=== PATIENT | male | born 1965 | race Caucasian/White ===

== ENCOUNTER 2019-09-15 16:23 | Outpatient (CLI) | payer MEDICARE, SELFPAY ==
[2019-09-15 17:10] LABS: Blood Urea Nitrogen 16 mg/dL (9-20); Calcium 9.7 mg/dL (8.4-10.2); Carbon Dioxide 30 mmol/L (22-30); Chloride 98 mmol/L (98-107); Estimated Glomerular Filt Rate > 60; Glucose 100 mg/dL (75-110); Potassium 4.5 mmol/L (3.4-5.0); Sodium 138 mmol/L (137-145)
== END 2019-09-15 16:24 | disposition home or self-care (01) ==
LOC: ANHLAB 16:26
PROVIDERS: PCP Family Medicine; Visit Provider Nurse Practitioner Family
DX: E87.5 Hyperkalemia (principal)
CPT/HCPCS: 36415; 80048

== ENCOUNTER 2020-05-02 13:09 | Outpatient (CLI) | payer MEDICARE, SELFPAY ==
--- NOTE | ~2020-05-02 | XR_ITS ---
EXAMINATION: XR knee LT 3V EXAM DATE: 05/02/2020 13:42 INDICATION: No known recent injury provided at this time. Pain of the knees. TECHNIQUE: Three projections of the left knee. Comparison is made to prior examination from 04/21/2017 . FINDINGS: No evidence osteochondral defect or joint body in the left knee joint. There is minimal p rimary osteoarthritis. No joint effusion. There are no acute fractures or dislocations identified. There is no subcutaneous gas. The soft tissue is unremarkable. There are no radiopaque foreign bod ies. IMPRESSION: Minimal left knee osteoarthritis. Reviewed, dictated and finalized at location B.
--- NOTE | ~2020-05-02 | XR_ITS ---
EXAMINATION: XR knee RT 3V EXAM DATE: 05/02/2020 13:41 INDICATION: No known recent injury provided at this time. Pain of the knees. TECHNIQUE: Three projections of the right knee. There is no prior study for comparison. FINDINGS: No evidence osteochondral defect or joint body in the right knee joint. There is minimal primary osteoarthritis. There are no acute fractures or dislocations identified. There is no subcut aneous gas. The soft tissue is unremarkable. There are no radiopaque foreign bodies. IMPRESSION: Minimal right knee osteoarthritis. Reviewed, dictated and finalized at location B.
== END 2020-05-02 13:10 | disposition home or self-care (01) ==
PROVIDERS: PCP Family Medicine; Visit Provider Nurse Practitioner Family
DX: M25.562 Pain in left knee (principal); M25.561 Pain in right knee
CPT/HCPCS: 73562

== ENCOUNTER 2020-07-11 14:22 | Outpatient (CLI) | payer MEDICARE, SELFPAY ==
--- NOTE | ~2020-07-11 | XR_ITS ---
EXAMINATION: XR chest 2V EXAM DATE: 07/11/2020 14:44 INDICATION: R05 - Cough, HX HTN . TECHNIQUE: Frontal and lateral projections of the chest obtained and reviewed. Comparison is made to prior examination from 09/18/2015. FINDINGS: The lungs are clear. There are no pleural effusions. The cardiomediastinal silhouette is within normal limits. There is no pneumothorax suspected. The bones and soft tissues are unremarkab le. IMPRESSION: No acute cardiopulmonary findings. Reviewed, dictated and finalized at location A. CARRIER
== END 2020-07-11 14:23 | disposition home or self-care (01) ==
PROVIDERS: PCP Family Medicine; Visit Provider Nurse Practitioner Family
DX: R05 Cough (principal); I10 Essential (primary) hypertension
CPT/HCPCS: 71046

== ENCOUNTER 2020-07-16 18:41 | Emergency (ER) | payer MEDICARE, SELFPAY ==
[2020-07-16 19:26] VITALS: BP 143/74; PULSE 81; RESP 15; TEMP 36.9; O2SAT 99
[2020-07-16 19:33] LABS: Glucose Point of Care 418 (65-105)
[2020-07-16 19:42] LABS: Basophils Absolute Auto 0.1 K/mm3 (0.0-0.1); Basophils Percent Auto 0.5 % (0.2-1.2); Eosinophils Absolute Auto 0.3 K/mm3 (0-0.3); Eosinophils Percent Auto 2.8 % (0-4.4); Hemoglobin 13.7 g/dL (14.0-18.0); Immature Granulocyte Absolute 0.03 K/mm3 (0.00-0.031); Immature Granulocyte Percent A 0.3 % (0-0.5); Lymphocytes Absolute Auto 3.26 K/mm3 (0.9-3.2); Lymphocytes Percent Auto 31.6 % (18.3-44.2); Mean Corpuscular HGB Conc 35.1 g/dl (32-36); Mean Corpuscular Volume 85.3 fl (80-100); Mean Platelet Volume 9.8 fl (7.4-10.4); Monocytes Percent Auto 10.1 % (2.6-8.5); Neutrophils Absolute Auto 5.6 K/mm3 (1.3-6.7); Neutrophils Percent Auto 54.7 % (45.5-73.1); Platelet Count Result 220 k/mm3 (150-375); Red Blood Count 4.57 M/mm3 (4.6-6.20); White Blood Count 10.3 K/mm3 (4.5-10.0)
[2020-07-16 19:59] LABS: Add Urine Microscopic? YES; Appearance Urine Clear (Clear); Bilirubin Urine Negative (Negative); Blood Urine Negative (Negative); Color Urine Straw (Yellow); Glucose Urine UA 3+ mg/dL (Negative); Ketones Urine Negative (Negative); Leukocyte Esterase Ur Negative LEU/UL (Negative); Nitrate Urine Negative (Negative); Protein Urine Negative (Negative); RBC Urine 0-2 /hpf (0-2); Specific Grav Ur 1.015 (1.001-1.035); Urobilinogen Urine Negative mg/dL (<2.0); WBC Urine 0-3 /hpf
[2020-07-16 20:23] LABS: Alanine Aminotransferase 41 U/L (4-50); Albumin Level 4.1 g/dL (3.5-5.1); Alkaline Phosphatase 88 U/L (38-126); Anion Gap 8 mmol/L (8-16); Aspartate Amino Transferase 42 U/L (17-59); Bilirubin,Total 0.4 mg/dL (0.2-1.3); Blood Urea Nitrogen 10 mg/dL (9-20); Calcium 8.9 mg/dL (8.4-10.2); Carbon Dioxide 25 mmol/L (22-30); Chloride 98 mmol/L (98-107); Estimated CRCL calculation 122 ml/min; Estimated Glomerular Filt Rate > 60; Glucose 367 mg/dL (75-110); Magnesium 1.9 mg/dL (1.6-2.3); Potassium 4.3 mmol/L (3.4-5.0); Sodium 131 mmol/L (137-145)
[2020-07-16 20:26] LABS: Beta-Hydroxybutyrate/Acetoacetate 0.07 mmol/L (0.02-0.27)
--- NOTE | 2020-07-16 20:57 | ED.RECABL ---
HPI - Recheck/Abnormal Lab/Rx General Chief Complaint: Recheck/Abnormal Lab/Rx Stated Complaint: high blood sugar, sent by PCP Time Seen by Provider: 07/16/20 20:34 Source: patient Mode of arrival: ambulatory Limitations: no limitations History of Present Illness HPI narrative: 55-year-old man Type 2 diabetes first diagnosed about a year ago Takes only 500 mg a day of extended release Metformin Blood sugars were over 400 today and he was advised to be checked in the ER Effectively is asymptomatic, no antecedent symptoms, no fever nausea vomiting etc. does have probably excessive urination Related Data Home Medications Medication Instructions Recorded Confirmed aspirin 81 mg tablet,delayed 81 mg PO DAILY 08/22/19 05/27/20 release cariprazine 3 mg capsule 3 mg PO DAILY 09/11/19 05/27/20 cetirizine 10 mg capsule 10 mg PO DAILY 09/11/19 05/27/20 gabapentin 300 mg capsule 300 mg PO DAILY 09/11/19 05/27/20 duloxetine 60 mg capsule,delayed 60 mg PO DAILY 12/07/19 05/27/20 release lamotrigine 25 mg tablet 25 mg PO BID tablet 12/07/19 05/27/20 docusate sodium 100 mg capsule 100 mg PO DAILY 02/19/20 05/27/20 polyethylene glycol 3350 17 17 gm PO DAILY 02/19/20 05/27/20 gram/dose oral powder Allergies Allergy/AdvReac Type Severity Reaction Status Date / Time No Known Allergies Allergy Unknown N/A Verified 07/16/20 19:31 Review of Systems Review of Systems: All systems reviewed & are unremarkable except as noted in HPI and below Constitutional: Constitutional: Denies chills, Denies fatigue, Denies fever(s), Denies headache(s) and Denies weakness Eyes: Eyes: Reports no additional eye complaints and Denies change in vision ENT: Denies headache(s), Denies epistaxis, Denies nasal congestion and Denies sore throat Cardiovascular: Cardiovascular: Denies chest pain, Denies leg edema, Denies palpitations and Denies dyspnea Respiratory: Respiratory: Denies cough, Denies dyspnea and Denies wheezing Gastrointestinal: Gastrointestinal: Denies abdominal pain, Denies diarrhea, Denies nausea and Denies vomiting Genitourinary: Genitourinary: Denies hematuria, Denies dysuria and Denies urinary frequency Musculoskeletal: Musculoskeletal: Denies deformity, Denies arthralgias, Denies joint swelling, Denies muscle weakness and Denies numbness Integumentary/Breasts: Skin/Breast: Denies rash and Denies wounds Neurologic: Denies headache(s), Denies focal weakness, Denies numbness and Denies weakness Psychiatric: Psychiatric: Reports no additional psychiatric complaints Endocrine: Endocrine: Denies fatigue, Reports polydipsia, Reports polyuria and Denies palpitations Hematologic/Lymphatic: Hematologic/Lymphatic: Denies easy bleeding and Denies easy bruising Allergic/Immunologic: Allergic/Immunologic: Denies wheezing PMFSH Past Medical History Medical History BMI 36.0-36.9,adult Coronary artery disease Hyperlipidemia Seizure Surgical History Surgical History History of colon resection History of foot surgery History of hernia repair History of surgery on wrist Family History Family History Father Hypertension Family history of throat cancer Acute myocardial infarction Family history of malignant neoplasm of kidney History of kidney cancer Mother Family history of Alzheimer's disease Family history of diabetes mellitus in first degree relative Diabetes mellitus Sibling No problems noted. Other Cerebrovascular accident Family history of alcoholism Family history of cardiovascular disease Family history of coronary artery disease Family history of malignant neoplasm Family history of mental disorder Social History Social History Smoking status: Former sm
[2020-07-16 21:00] VITALS: BP 129/63; PULSE 77; RESP 19; O2SAT 98
--- NOTE | 2020-07-16 21:20 | PC.NURSE ---
Normal Saline not given per Dr. Whyte
[2020-07-16 21:21] LABS: Hemoglobin A1C 7.7 % (<5.7)
[2020-07-16 21:47] VITALS: BP 133/70; PULSE 76; RESP 16; O2SAT 96
== END 2020-07-16 21:48 | disposition home or self-care (01) ==
PROVIDERS: Emergency Medicine; Emergency Provider Emergency Medicine; PCP Family Medicine
DX: E11.65 Type 2 diabetes mellitus with hyperglycemia (principal); I25.10 Atherosclerotic heart disease of native coronary artery without angina pectoris; E78.5 Hyperlipidemia, unspecified; Z90.49 Acquired absence of other specified parts of digestive tract; Z87.891 Personal history of nicotine dependence; Z79.84 Long term (current) use of oral hypoglycemic drugs
CPT/HCPCS: 36415; 80053; 81001; 82010; 82948; 83036; 83735; 84100; 85025; 99283

== ENCOUNTER 2020-08-05 22:05 | Emergency (ER) | payer MEDICARE, SELFPAY ==
[2020-08-05] VITALS (7 sets, daily range): BP systolic 113–117; BP diastolic 56–60; PULSE 71–76; RESP 14–25; TEMP 35.9; O2SAT 96–98
--- NOTE | ~2020-08-05 | XR_ITS ---
EXAMINATION: XR chest 1V portable INDICATION: Choking episode, history of hypertension TECHNIQUE: Portable AP chest at 2238 hours COMPARISON: 07/11/2020 FINDINGS: There are interstitial and airspace opacities in the mid and lower lung zones. No pleural e ffusion or pneumothorax is identified. The cardiomediastinal silhouette is normal. Healed left-sided rib fractures are noted. IMPRESSION: 1. Opacities of the mid and lower lung zones which could reflect pneumonia and/or pulmonary edema and /or atelectasis. Reviewed, dictated and finalized at location A. ING COORDINATOR IMPRESSION: 1. Opacities of the mid and lower lung zones which could reflect pneumonia and/ or pulmonary edema and/or atelectasis.
--- NOTE | 2020-08-05 22:17 | ECG_ITS ---
Measurements Intervals [place] Rate: 70 P: 67 IA: 143 QRS: 50 QRSD: 86 T: 39 QT: 374 QTc: 405 Interpretive Statements SINUS RHYTHM POSSIBLE LEFT ATRIAL ENLARGEMENT BORDERLINE T WAVE ABNORMALITY- ANTERIOR LEADS BORDERLINE ECG Electronically Signed On 08-06-2020 7:28:14 MILL REPRESENTATIVE by Deacon King D.O.
--- NOTE | 2020-08-05 22:18 | ED.GENADULT ---
HPI - General Adult General Chief complaint: Syncope Stated complaint: choked and stopped breathing Time Seen by Provider: 08/05/20 22:19 History of Present Illness HPI narrative: Patient is a 55-year-old gentleman who presents the emergency department with chief complaint of syncope. Patient reports for the last year he has had problems with swallowing and starts coughing after he swallows. Patient states he is to see GI in the next week and states that it is worsened when drinking and changes in position and improved whenever he sits in an upright position and does not breathe whenever he swallows. The patient states tonight he started coughing and after coughing for a period of time he briefly passed out. The patient reports no injuries after he passed out. Related Data Home Medications Medication Instructions Recorded Confirmed aspirin 81 mg tablet,delayed 81 mg PO DAILY 08/22/19 07/17/20 release cetirizine 10 mg capsule 10 mg PO DAILY 09/11/19 07/17/20 gabapentin 300 mg capsule 300 mg PO TID 09/11/19 07/17/20 lamotrigine 25 mg tablet 25 mg PO BID tablet 12/07/19 07/17/20 cariprazine 3 mg capsule 1.5 mg PO DAILY cap 07/17/20 07/17/20 duloxetine 60 mg capsule,delayed 30 mg PO DAILY cap 07/17/20 07/17/20 release metformin 500 mg DAILY 08/05/20 metoprolol tartrate 50 mg BID 08/05/20 Allergies Allergy/AdvReac Type Severity Reaction Status Date / Time No Known Allergies Allergy Unknown N/A Verified 08/05/20 22:28 Review of Systems Review of Systems: Narrative: A 10 system review of systems was completed on the patient and is negative except for what is stated in the HPI. Nursing and ancillary documentation was reviewed. [facility] [place] Past Medical History Medical History BMI 36.0-36.9,adult Coronary artery disease Hyperlipidemia Seizure Surgical History Surgical History History of colon resection History of foot surgery History of hernia repair History of surgery on wrist Family History Family History Father Hypertension Family history of throat cancer Acute myocardial infarction Family history of malignant neoplasm of kidney History of kidney cancer Mother Family history of Alzheimer's disease Family history of diabetes mellitus in first degree relative Diabetes mellitus Sibling No problems noted. Other Cerebrovascular accident Family history of alcoholism Family history of cardiovascular disease Family history of coronary artery disease Family history of malignant neoplasm Family history of mental disorder Social History Social History Smoking status: Former smoker Smoking end date: 08/09/06 Alcohol intake: never Gender identity (if verbalized by the patient): Male Exam Narrative: Exam Narrative: GENERAL: Well-appearing, well-nourished, and in no acute distress. HEAD: Normocephalic, atraumatic. EYES: PERRLA and EOMI. ENT: Nares clear, no rhinorrhea or epistaxis. Mucous membranes moist. NECK: Supple. CHEST: Clear to auscultation. No respiratory distress. HEART: Regular rate and rhythm. No murmur heard. Normal peripheral pulses. ABDOMEN: Soft, nontender, nondistended, normal active bowel sounds. EXTREMITIES: Normal range of motion. No edema. SKIN: Warm, dry, no rash. NEURO: No focal deficits. Alert and oriented x3. PSYCH: Normal mood and affect. Course Course Emergency Course: When the patient is sitting upright patient is able to swallow without difficulty. This time the patient is not showing signs of impending airway compromise labs are within normal limits chest x-ray showed evidence of atelectasis. Vital Signs Vital signs: Vital Signs Temperature 35.9 C L 08/05/20 22:07 Pulse Rate 76
[2020-08-05 22:27] LABS: Basophils Absolute Auto 0.1 K/mm3 (0.0-0.1); Basophils Percent Auto 0.5 % (0.2-1.2); Eosinophils Absolute Auto 0.3 K/mm3 (0-0.3); Eosinophils Percent Auto 2.9 % (0-4.4); Hematocrit 37.9 % (42.0-52.0); Hemoglobin 13.3 g/dL (14.0-18.0); Immature Granulocyte Absolute 0.04 K/mm3 (0.00-0.031); Immature Granulocyte Percent A 0.4 % (0-0.5); Lymphocytes Absolute Auto 4.32 K/mm3 (0.9-3.2); Lymphocytes Percent Auto 40.3 % (18.3-44.2); Mean Corpuscular HGB Conc 35.1 g/dl (32-36); Mean Corpuscular Hemoglobin 30.5 pg (26-34); Mean Corpuscular Volume 86.9 fl (80-100); Mean Platelet Volume 9.6 fl (7.4-10.4); Monocytes Absolute Auto 1.1 K/mm3 (0.1-0.6); Monocytes Percent Auto 9.8 % (2.6-8.5); Neutrophils Percent Auto 46.1 % (45.5-73.1); Platelet Count Result 219 k/mm3 (150-375); Red Blood Count 4.36 M/mm3 (4.6-6.20); Red Cell Distribution Width 13.2 % (11.5-14.5); White Blood Count 10.7 K/mm3 (4.5-10.0)
--- NOTE | 2020-08-05 22:31 | PC.NURSE ---
patient brought back to ED room 5 after reported witnessed syncopal event tonight at home while trying to take a drink. patient and report this same issue over the past year since patient was intubated at [facility]. patient has appointment with GI next week for same. patient states he was taking a drink of water approximately 1 hour ago and choked . states patient had LOC x 1 minute. patient reports some confusion when he awoke. just arrived to ED. EKG done. SL inserted. patient placed on vehicle monitor technician. call light in reach.
[2020-08-05 22:36] LABS: Atypical Lymphocytes Present; Platelet Estimate Adequate (Adequate); Poikilocytosis 1+ (NORMAL)
[2020-08-05 22:40] LABS: Anion Gap 9 mmol/L (8-16); Blood Urea Nitrogen 22 mg/dL (9-20); Calcium 8.8 mg/dL (8.4-10.2); Carbon Dioxide 25 mmol/L (22-30); Chloride 100 mmol/L (98-107); Estimated CRCL calculation 95 ml/min; Estimated Glomerular Filt Rate > 60; Glucose 132 mg/dL (75-110); Potassium 4.1 mmol/L (3.4-5.0); Sodium 134 mmol/L (137-145)
--- NOTE | 2020-08-05 23:50 | PC.NURSE ---
Pt. tolerated PO challenge
[2020-08-06 00:10] VITALS: BP 123/65; PULSE 73; RESP 15; O2SAT 98
== END 2020-08-06 00:10 | disposition home or self-care (01) ==
PROVIDERS: Emergency Provider Emergency Medicine; PCP Family Medicine
DX: R55 Syncope and collapse (principal); R13.10 Dysphagia, unspecified; Z79.82 Long term (current) use of aspirin; Z79.84 Long term (current) use of oral hypoglycemic drugs; I25.10 Atherosclerotic heart disease of native coronary artery without angina pectoris; E78.5 Hyperlipidemia, unspecified; Z90.49 Acquired absence of other specified parts of digestive tract; Z87.891 Personal history of nicotine dependence; R94.31 Abnormal electrocardiogram [ECG] [EKG]
CPT/HCPCS: 36415; 71045; 80048; 85025; 93005; 99284

== ENCOUNTER 2020-09-10 00:06 | Outpatient (CLI) | payer MEDICARE, SELFPAY ==
[2020-09-10 19:18] LABS: SARS-CoV-2 RNA PCR Negative
== END 2020-09-10 00:07 | disposition home or self-care (01) ==
LOC: ANHCOVIDDT 00:06
PROVIDERS: PCP Family Medicine; Visit Provider Internal Medicine Gastroenterology
DX: Z01.812 Encounter for preprocedural laboratory examination (principal); Z20.822 Contact with and (suspected) exposure to COVID-19
CPT/HCPCS: C9803; U0003; U0005

== ENCOUNTER 2020-09-13 01:55 | Day surgery (SDC) | payer MEDICARE, SELFPAY ==
[2020-08-30 08:47] VITALS: BMI 36.5
--- NOTE | 2020-09-10 14:10 | PC.NURSE ---
ON 08/30/20 PT STATED HE WAS HAVING INCREASED SPASM-TWITCHING IN BOTH LEGS AT NIGHT PT THINKS IT MAY OR MAY NOT BE RELATED TO STOPPING KEPPRA. ENCOURAGED PT TO CALL DR. LYN AND UPDATE HIM IF IT CONT. OR WORSENS. 08/09/26 SPOKE WITH PT AND , INSTRUCTED TO CALL DR. LYN CONCERNING SYMPTOMS. 09/10/2020 PATIENT CALLED AND STATED HE SPOKE WITH DR. LYN AND HE BELIEVES HIS SYMPTOMS ARE ALL RELATED TO RESTLESS LEGS SYNDROME. HE SAID IT WAS OKAY TO MOVE FORWARD WITH COLONOSCOPY AND EGD.
[2020-09-13 08:12] VITALS: BP 127/87; PULSE 67; RESP 18; TEMP 36.3; O2SAT 98
[2020-09-13] MEDS: LACTATED RINGERS 1,000 ML 150 ML IV CONT (08:35)
[2020-09-13 08:36] LABS: Glucose Point of Care 158 (65-105)
--- NOTE | 2020-09-13 09:14 | WPDANESEPPF ---
Anes - Initial Pre Proc Eval Procedure: Operation Date: 09/13/20 09:30 Proposed Procedures p Esophagogastroduodenoscopy & Screening Colonoscopy - Satish Alaniz MD Date/Time: 09/13/20 09:14 Surgeon: Satish Alaniz MD Pre Op Diagnosis: Hx of Colon Polyps, GERD, Dysphagia Patient Data Age: 55 Gender: M Height: 5 ft 8 in Weight: 103.7 kg Last Vital Signs Temp 97.4 F L 09/13/20 08:12 Pulse 67 09/13/20 08:12 Resp 18 09/13/20 08:12 BP 127/87 09/13/20 08:12 Pulse Ox 98 09/13/20 08:12 Allergies Allergy/AdvReac Type Severity Reaction Status Date / Time No Known Allergies Allergy Unknown N/A Verified 09/05/20 09:25 Home Medications Medication Instructions Recorded Confirmed Type aspirin 81 mg tablet,delayed 81 mg PO DAILY 08/22/19 09/05/20 History release cetirizine 10 mg capsule 10 mg PO DAILY 09/11/19 09/05/20 History gabapentin 300 mg capsule 300 mg PO TID 09/11/19 09/05/20 History levetiracetam 1,000 mg tablet 1,000 mg PO Q12H #180 tablet 10/04/19 09/05/20 Rx simvastatin 20 mg tablet 20 mg PO DAILY #90 tablet 05/27/20 09/05/20 Rx esomeprazole magnesium 40 mg 40 mg PO BID #180 cap 08/04/20 09/05/20 Rx capsule,delayed release metoprolol tartrate 50 mg Q12H 08/05/20 09/05/20 History metformin 500 mg tablet,extended 500 mg PO QACBREAK tablet 08/14/20 09/05/20 History release 24 hr sildenafil 100 mg tablet 100 mg PO DAILY PRN #30 tablet 08/14/20 09/05/20 Rx amlodipine 10 mg PO DAILY 08/30/20 09/05/20 History citalopram 20 mg PO DAILY 08/30/20 09/05/20 History ergocalciferol (vitamin D2) 1,250 mcg PO WEEKLY 08/30/20 09/05/20 History [Vitamin D2] lamotrigine 150 mg PO DAILY 08/30/20 09/13/20 History lisinopril 10 mg PO DAILY 08/30/20 09/05/20 History metformin 1,000 mg PO QACDINNER 08/30/20 09/05/20 History potassium chloride 40 meq PO DAILY 08/30/20 09/05/20 History terbinafine HCl 250 mg PO DAILY 08/30/20 09/05/20 History zolpidem 5 mg PO HS 08/30/20 09/05/20 History hydrocodone 7.5 mg-acetaminophen 1 tablet PO Q8H PRN #70 tablet 09/02/20 09/13/20 Rx 325 mg tablet meloxicam 15 mg tablet 15 mg PO DAILY #30 tablet 09/08/20 09/13/20 Rx Laboratory Tests 09/13/20 08:24 POC Capillary Glucose 158 mg/dl H mg/dl (65-105) Patient hx anesthesia problems: none Family hx anesthesia problems: none PMFSH Past Medical History Medical History (Updated 09/05/20 @ 17:51 by Morgan Bolton MD) Adenomatous colon polyp BMI 36.0-36.9,adult BMI over 35 Coronary artery disease Dysphagia Hyperlipidemia Opacity of lung on imaging study Seizure Tear of medial meniscus of left knee Surgical History Surgical History History of colon resection History of foot surgery History of hernia repair History of surgery on wrist Family History Family History Father Hypertension Family history of throat cancer Acute myocardial infarction Family history of malignant neoplasm of kidney History of kidney cancer Mother Family history of Alzheimer's disease Family history of diabetes mellitus in first degree relative Diabetes mellitus Sibling No problems noted. Other Cerebrovascular accident Family history of alcoholism Family history of cardiovascular disease Family history of coronary artery disease Family history of malignant neoplasm Family history of mental disorder Social History Social History Smoking packs per day: 1.5 Smoking cigarettes per day: 30.0 Years smoked: 30 Smoking pack-years: 45.00 Smoking status: Former smoker Smoking end date: 08/09/06 Alcohol intake: never Substance use: current Substance use type: marijuana Living arrangements: with family Gender identity (if verbalized by the patient): 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ns:
--- NOTE | 2020-09-13 09:31 | WPDHPUPDATE1 ---
History and Physical Update Update Date/Time: 09/13/20 09:31 History and Physical has been reviewed, including an updated exam of the patient. There are NO changes in the patient's condition. Risks, benefits, and alternatives have been discussed and questions answered. Patient agrees to proceed with procedure.
[2020-09-13 10:01] VITALS: BP 114/51; PULSE 79; RESP 19; O2SAT 98
[2020-09-13 10:11] VITALS: BP 129/107; PULSE 78; RESP 18; O2SAT 97
[2020-09-13 10:21] VITALS: BP 100/50; PULSE 76; RESP 22; O2SAT 97
== END 2020-09-13 10:53 | disposition home or self-care (01) ==
PROVIDERS: PCP Family Medicine; Visit Provider Internal Medicine Gastroenterology
PROC: 0DJ08ZZ Inspection of Upper Intestinal Tract, Via Natural or Artificial Opening Endoscopic (ICD-10-PCS; CPT 43235; principal; 2020-09-13 09:30)
DX: Z12.11 Encounter for screening for malignant neoplasm of colon (principal); Z98.0 Intestinal bypass and anastomosis status; D12.3 Benign neoplasm of transverse colon; K57.30 Diverticulosis of large intestine without perforation or abscess without bleeding; K64.8 Other hemorrhoids; Z79.82 Long term (current) use of aspirin; Z79.84 Long term (current) use of oral hypoglycemic drugs; I25.10 Atherosclerotic heart disease of native coronary artery without angina pectoris; E78.5 Hyperlipidemia, unspecified; Z87.891 Personal history of nicotine dependence; F12.90 Cannabis use, unspecified, uncomplicated; E66.9 Obesity, unspecified; Z68.34 Body mass index [BMI] 34.0-34.9, adult; R13.19 Other dysphagia; Z90.49 Acquired absence of other specified parts of digestive tract; K20.80 Other esophagitis without bleeding
CPT/HCPCS: 45385; 43239; 82948; 88305; C9803; J2704; J7120; U0003; U0005

== ENCOUNTER 2020-09-16 10:17 | Outpatient (CLI) | payer MEDICARE, SELFPAY ==
[2020-09-16 10:53] LABS: Basophils Percent Auto 0.5 % (0.2-1.2); Eosinophils Absolute Auto 0.2 K/mm3 (0-0.3); Eosinophils Percent Auto 2.5 % (0-4.4); Hematocrit 42.6 % (42.0-52.0); Hemoglobin 14.6 g/dL (14.0-18.0); Immature Granulocyte Absolute 0.03 K/mm3 (0.00-0.031); Immature Granulocyte Percent A 0.3 % (0-0.5); Lymphocytes Absolute Auto 2.93 K/mm3 (0.9-3.2); Lymphocytes Percent Auto 33.6 % (18.3-44.2); Mean Corpuscular HGB Conc 34.3 g/dl (32-36); Mean Corpuscular Hemoglobin 29.4 pg (26-34); Mean Corpuscular Volume 85.9 fl (80-100); Mean Platelet Volume 9.6 fl (7.4-10.4); Monocytes Absolute Auto 0.8 K/mm3 (0.1-0.6); Monocytes Percent Auto 9.2 % (2.6-8.5); Neutrophils Absolute Auto 4.7 K/mm3 (1.3-6.7); Neutrophils Percent Auto 53.9 % (45.5-73.1); Platelet Count Result 235 k/mm3 (150-375); Red Blood Count 4.96 M/mm3 (4.6-6.20); Red Cell Distribution Width 13.3 % (11.5-14.5); White Blood Count 8.7 K/mm3 (4.5-10.0)
[2020-09-16 11:41] LABS: Anion Gap 7 mmol/L (8-16); Blood Urea Nitrogen 18 mg/dL (9-20); Calcium 9.5 mg/dL (8.4-10.2); Carbon Dioxide 28 mmol/L (22-30); Chloride 105 mmol/L (98-107); Estimated Glomerular Filt Rate > 60; Glucose 114 mg/dL (75-110); Potassium 4.3 mmol/L (3.4-5.0); Sodium 140 mmol/L (137-145)
== END 2020-09-16 10:18 | disposition home or self-care (01) ==
PROVIDERS: PCP Family Medicine; Visit Provider Family Medicine
DX: E87.1 Hypo-osmolality and hyponatremia (principal); D72.829 Elevated white blood cell count, unspecified
CPT/HCPCS: 36415; 80048; 85025

== ENCOUNTER 2020-09-17 09:29 | Outpatient (CLI) | payer MEDICARE, SELFPAY ==
--- NOTE | ~2020-09-17 | XR_ITS ---
EXAMINATION: XR barium swallow modified DATE: 09/17/2020 10:11 INDICATION: Dysphagia, oropharyngeal phase, choking TECHNIQUE: Modified barium esophagram was performed by myself to administered fluoroscopy, in conjun ction with speech pathologist who administered barium in varying consistencies as per speech patholog ist documentation. This was recorded on tape. A single fluoroscopic spot image was recorded. The DAP for this procedure was 1.756 Gycm2. Fluoroscopy exposure time was 1.9 minutes. FINDINGS: Oral stage: Adequate function. Pharyngeal phase: Adequate function. Laryngeal penetration: Trace within liquids. Aspiration: None. Laryngeal sensitivity: Present. IMPRESSION: Trace laryngeal penetration with thin liquids. Please refer to speech pathologist finding s and specific feeding recommendations. Reviewed, dictated and finalized at location A. [facility] IMPRESSION: Trace laryngeal penetration with thin liquids. Please refer to arleen stover pathologist findings and specific feeding recommendations.
--- NOTE | 2020-09-17 10:12 | STOPEVAL ---
MODIFIED BARIUM SWALLOW EVALUATION: Thank you for referring Justin Mittal to [facility].? Attending Provider: Morgan Bolton MD * [place] [facility] [place]: 09/17/20 10:05 Therapy Assessment Status Assessment Status Assessment Status Evaluation Outpatient Past Medical History Past Medical History Source of Past Medical History Patient Respiratory History Hx Other Respiratory Disorders Yes: intubation 08/28 after seizures Pain Assessment Timing of Pain Assessment Timing of Pain Assessment Assessment Self Report Self Report Pain Level 0 Pain Score Pain Score 0: Self Report Modified Barium Swallow Evaluation Recent Swallowing History Reports Dysphagia Yes: intermittent choking since intubation History of Dysphagia No History of Pneumonia No Reported Difficult Consistencies Thin Liquids Intake Method Prior to Swallow Oral Evaluation Diet Prior to Swallow Evaluation Regular, Level 7 Liquid Consistency Prior to Swallow Thin (0) Evaluation Consistency Solid Consistency Method of Presentation Spoon Oral Preparatory Symptoms None Oral Phase Symptoms None Pharyngeal Phase Symptoms None Severity of Vallecular Residue None - 0% No Residue Severity of Pyriform Sinus Residue None - 0% No Residue 8 Point Laryngeal Penetration-Aspiration Material Does Not Enter Airway Scale Cervical/Esophageal Symptoms None Mixed Consistency Method of Presentation Spoon Oral Preparatory Symptoms None Oral Phase Symptoms None Pharyngeal Phase Symptoms None Severity of Vallecular Residue None - 0% No Residue Severity of Pyriform Sinus Residue None - 0% No Residue 8 Point Laryngeal Penetration-Aspiration Material Does Not Enter Airway Scale Cervical/Esophageal Symptoms None Pureed Consistency Method of Presentation Spoon Oral Preparatory Symptoms None Oral Phase Symptoms None Pharyngeal Phase Symptoms None Severity of Vallecular Residue None - 0% No Residue Severity of Pyriform Sinus Residue None - 0% No Residue 8 Point Laryngeal Penetration-Aspiration Material Does Not Enter Airway Scale Cervical/Esophageal Symptoms None Thin Uncontrolled 2 Method of Presentation Straw Oral Preparatory Symptoms None Oral Phase Symptoms None Pharyngeal Phase Symptoms None Severity of Vallecular Residue None - 0% No Residue Severity of Pyriform Sinus Residue None - 0% No Residue 8 Point Laryngeal Penetration-Aspiration Material Does Not Enter Airway Scale Cervical/Esophageal Symptoms None Thin Uncontrolled 1 Method of Presentation
== END 2020-09-17 09:30 | disposition home or self-care (01) ==
PROVIDERS: PCP Family Medicine; Visit Provider Family Medicine
DX: R13.10 Dysphagia, unspecified (principal)
CPT/HCPCS: 92611

== ENCOUNTER 2020-09-18 09:09 | Outpatient (CLI) | payer MEDICARE, SELFPAY ==
--- NOTE | ~2020-09-18 | CT_ITS ---
EXAMINATION: CT diagnostic chest wo con DATE: 09/18/2020 09:28 INDICATION: Follow-up bilateral infiltrates of the lungs seen on chest x-ray. TECHNIQUE: Computed tomography (CT) of the chest was performed without intravenous contrast. The dose -length product was 234.58 mGy-cm. Automated exposure control and iterative reconstruction technique were employed. COMPARISON: CT dated 07/21/2007 and chest x-ray dated 08/05/2020 FINDINGS: No mediastinal or hilar lymphadenopathy. There are calcified mediastinal and hilar lymph no axel, consistent with chronic granulomatous disease. No significant pleural or pericardial effusion. H eart size is normal. There is emphysema. No significant pleural or pericardial effusion. There are no nobstructing left renal stones. No endobronchial lesions. No suspicious pulmonary nodules or masses. No acute osseous abnormality. IMPRESSION: 1. No acute cardiopulmonary disease. 2: Emphysema. 3: Nonobstructing left nephrolithiasis. Reviewed, dictated and finalized at location B. R ASSEMBLY LINEMAN
== END 2020-09-18 09:10 | disposition home or self-care (01) ==
PROVIDERS: PCP Family Medicine; Visit Provider Family Medicine
DX: J43.9 Emphysema, unspecified (principal); N20.0 Calculus of kidney
CPT/HCPCS: 71250

== ENCOUNTER 2020-11-01 15:58 | Outpatient (CLI) | payer MEDICARE, SELFPAY ==
[2020-11-01 16:39] LABS: Alanine Aminotransferase 31 U/L (4-50); Aspartate Amino Transferase 38 U/L (17-59)
== END 2020-11-01 15:59 | disposition home or self-care (01) ==
LOC: ANHLAB 16:04
PROVIDERS: PCP Family Medicine; Visit Provider Podiatrist Foot & Ankle Surgery
DX: B35.1 Tinea unguium (principal)
CPT/HCPCS: 36415; 84450; 84460

== ENCOUNTER 2021-04-17 14:12 | Outpatient (CLI) | payer MEDICARE, SELFPAY ==
--- NOTE | 2021-04-19 23:51 | WPDPFTINT ---
PFT Procedure Performed PFT Procedure Performed Plethysmography (Lung Vol) Diffusing Cap (DLCO) Spirometry w/o Bronchodil PFT Interpretation DOS: 04/17/2021 REQUESTING: KARLA Corey REASON FOR TESTING: Emphysema PULMONARY FUNCTION TESTS Results are reliable and reproducible. Spirometry: FEV1 is 106% predicted, 3.68 L. Forced vital capacity is 114%, normal. FEV1/FVC is 73%, normal. No bronchodilator was given. Lung volumes: Total lung capacity 117%, normal. Residual volume 117% normal. RV/TLC is 32%, normal. No evidence of air trapping. Airway resistance 130 cmH2O/L/second, mildly increased. Diffusion: DLCO 76%, normal. Flow volume loop: Expiratory limb is normal. There is mild flattening of the inspiratory limb with early closure. IMPRESSION: This pulmonary function test shows normal spirometry, normal lung volumes normal diffusing capacity. The total lung capacity and residual volume are at the upper limits of normal and the DLCO is at the lower limits of normal. This suggests a trend toward a pattern consistent with emphysema. No bronchodilator was given. A trial of bronchodilator may be considered. Juana Evans MD
== END 2021-04-17 14:13 | disposition home or self-care (01) ==
PROVIDERS: PCP Family Medicine; Visit Provider Nurse Practitioner Family
DX: J43.9 Emphysema, unspecified (principal)
CPT/HCPCS: 94375; 94726; 94729

== ENCOUNTER 2021-04-29 10:32 | Emergency (ER) | payer MEDICARE, SELFPAY ==
--- NOTE | ~2021-04-29 | XR_ITS ---
EXAMINATION: XR chest 2V 04/29/2021 14:53 INDICATION: Syncope. COPD. PROCEDURE: 2 view chest COMPARISON: Comparison to multiple prior studies sequentially, with oldest reviewed study dated 09/2014. FINDINGS: The lungs are clear. The cardiomediastinal silhouette is within normal limits. There are no pleural effusions. There is no pneumothorax suspected. There are multiple healed left rib fractu res. IMPRESSION: 1: NO ACUTE CARDIOPULMONARY DISEASE. Reviewed, dictated and finalized at location A.
--- NOTE | ~2021-04-29 | XR_ITS ---
EXAMINATION: XR lumbar spine 2-3V DATE: 04/29/2021 14:53 INDICATION: Generalized low back pain. TECHNIQUE: 3 views of lumbar spine were obtained. COMPARISON: Lumbar spine radiographs 06/27/2015 FINDINGS: There is 6 degrees levocurvature of thoracolumbar spine. Vertebral body heights and interve rtebral disc heights are normal. There are endplate osteophytes at multiple levels. There is multilev el mild facet joint osteoarthritis. IMPRESSION: 1. Mild lumbar spondylosis. Reviewed, dictated and finalized at location A. IMPRESSION: 1. Mild lumbar spondylosis.
[2021-04-29 11:00] VITALS: BP 177/79; PULSE 63; RESP 18; TEMP 36.7; O2SAT 100
--- NOTE | 2021-04-29 11:07 | ECG_ITS ---
Measurements Intervals [place] Rate: 59 P: 52 [place]: 140 QRS: 45 QRSD: 86 T: 46 QT: 392 QTc: 391 Interpretive Statements SINUS BRADYCARDIA POSSIBLE LEFT ATRIAL ENLARGEMENT BORDERLINE ECG Electronically Signed On 04-29-2021 11:30:54 CDT by Deacon King D.O.
[2021-04-29 11:32] LABS: Basophils Percent Auto 0.2 % (0.2-1.2); Eosinophils Absolute Auto 0.2 K/mm3 (0-0.3); Eosinophils Percent Auto 2.6 % (0-4.4); Hematocrit 40.7 % (42.0-52.0); Hemoglobin 13.8 g/dL (14.0-18.0); Immature Granulocyte Absolute 0.03 K/mm3 (0.00-0.031); Immature Granulocyte Percent A 0.4 % (0-0.5); Lymphocytes Absolute Auto 2.71 K/mm3 (0.9-3.2); Lymphocytes Percent Auto 32.6 % (18.3-44.2); Mean Corpuscular HGB Conc 33.9 g/dl (32-36); Mean Corpuscular Hemoglobin 30.3 pg (26-34); Mean Corpuscular Volume 89.5 fl (80-100); Mean Platelet Volume 9.7 fl (7.4-10.4); Monocytes Absolute Auto 0.8 K/mm3 (0.1-0.6); Monocytes Percent Auto 9.9 % (2.6-8.5); Neutrophils Absolute Auto 4.5 K/mm3 (1.3-6.7); Neutrophils Percent Auto 54.3 % (45.5-73.1); Platelet Count Result 193 k/mm3 (150-375); Red Blood Count 4.55 M/mm3 (4.6-6.20); Red Cell Distribution Width 14.4 % (11.5-14.5); White Blood Count 8.3 K/mm3 (4.5-10.0)
[2021-04-29 11:47] LABS: Anion Gap 8 mmol/L (8-16); Blood Urea Nitrogen 12 mg/dL (9-20); Calcium 9.2 mg/dL (8.4-10.2); Carbon Dioxide 24 mmol/L (22-30); Chloride 106 mmol/L (98-107); Estimated CRCL calculation 103 ml/min; Estimated Glomerular Filt Rate > 60; Glucose 115 mg/dL (65-110); Potassium 4.7 mmol/L (3.4-5.0); Sodium 138 mmol/L (137-145)
--- NOTE | 2021-04-29 14:46 | ED.DIZZY ---
HPI - Dizziness General Chief Complaint: Syncope Stated Complaint: BACK PAIN, DIZZY, PASSED OUT Time Seen by Provider: 04/29/21 14:07 History of Present Illness HPI Narrative: Patient presents for syncope. Patient vishnu he passed out getting out of bed few days ago was seen in another ER had a CT of his head blood work and EKG and was told everything looked good and was discharged home. He returns today as he another syncopal event. This time he was in the shower he got lightheaded and collapsed to the ground. His family was with him and came up to see was going on and he was already waking up. Patient denied chest pain or shortness of breath prior to either event. Denies recent fever, cough, congestion, nausea, vomiting, diarrhea, urinary symptoms. Patient also reports low back pain. Reports history of degenerative spinal stenosis chronic muscle relaxers since his falls his pain has been increasing most noted on the right side. Denies any bowel or bladder incontinence he denies any focal numbness or weakness. Pain is achy, constant, no radiation worse with bending over or moving. Related Data Home Medications Medication Instructions Recorded Confirmed aspirin 81 mg tablet,delayed 81 mg PO DAILY 08/22/19 04/21/21 release citalopram 20 mg PO DAILY 08/30/20 04/21/21 lamotrigine 200 mg tablet 200 mg PO DAILY 10/15/20 04/21/21 Allergies Allergy/AdvReac Type Severity Reaction Status Date / Time No Known Allergies Allergy Unknown N/A Verified 04/21/21 08:29 Review of Systems Review of Systems: CONSTITUTIONAL: Denies fever, chills, or sweats. EYES: Denies visual changes, redness, or discharge. ENT: Denies rhinorrhea, congestion, sore throat, or otalgia. CARDIOVASCULAR: Denies chest pain, palpitations, or edema. RESPIRATORY: Denies cough or dyspnea. GASTROINTESTINAL: Denies abdominal pain, nausea, vomiting, or diarrhea. GENITOURINARY: Denies dysuria or hematuria. SKIN: Denies rash or itching. MUSCULOSKELETAL: Denies joint pain, or myalgia. NEUROLOGIC: Denies headache, numbness, focal weakness. PSYCHIATRIC: Denies anxiety or depression. All systems reviewed & are unremarkable except as noted in HPI and below PMFSH Past Medical History Medical History Adenomatous colon polyp BMI 33.0-33.9,adult BMI 34.0-34.9,adult BMI 36.0-36.9,adult BMI over 35 COPD exacerbation Coronary artery disease Dysphagia Emphysema of lung Hyperlipidemia Opacity of lung on imaging study Seizure Tear of medial meniscus of left knee Surgical History Surgical History History of colon resection History of foot surgery History of hernia repair History of surgery on wrist Family History Family History Father Hypertension Family history of throat cancer Acute myocardial infarction Family history of malignant neoplasm of kidney History of kidney cancer Mother Family history of Alzheimer's disease Family history of diabetes mellitus in first degree relative Diabetes mellitus Sibling No problems noted. Other Cerebrovascular accident Family history of alcoholism Family history of cardiovascular disease Family history of coronary artery disease Family history of malignant neoplasm Family history of mental disorder Social History Social History Smoking packs per day: 1.5 Smoking cigarettes per day: 30.0 Years smoked: 30 Smoking pack-years: 45.00 Smoking status: Former smoker Tobacco type: cigarettes Second hand tobacco smoke exposure: No Smoking end date: 08/09/06 Alcohol intake: never Substance use: current Substance use type: marijuana Additional occupation/education comments: [employer] Gender identity (if verbalized by the patient): 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
[2021-04-29] MEDS: SODIUM CHLORIDE 0.9% IV 1,000 ML 999 ML IV CONT (15:00)
[2021-04-29 15:15] VITALS: BP 174/82; PULSE 56
[2021-04-29 15:30] VITALS: BP 162/70; PULSE 68
[2021-04-29] MEDS: KETOROLAC 15 MG/ML VIAL (*BKC) IV PUSH (15:58)
[2021-04-29 16:11] LABS: Troponin I < 0.012 ng/mL (0.000-0.034)
[2021-04-29 16:29] LABS: Add Urine Microscopic? YES; Appearance Urine Clear (Clear); Bacteria Urine Trace /hpf; Bilirubin Urine Negative (Negative); Blood Urine Negative (Negative); Color Urine Amber (Yellow); Glucose Urine UA Negative (Negative); Ketones Urine Negative (Negative); Leukocyte Esterase Ur Negative LEU/UL (Negative); Mucus Urine Rare /lpf; Nitrate Urine Negative (Negative); Protein Urine 1+ mg/dL (Negative); RBC Urine 0-2 /hpf (0-2); Specific Grav Ur 1.025 (1.001-1.035); Urobilinogen Urine Negative mg/dL (<2.0); WBC Urine 0-3 /hpf
[2021-04-29 17:14] VITALS: BP 165/85; PULSE 70; RESP 16
== END 2021-04-29 17:15 | disposition home or self-care (01) ==
PROVIDERS: Emergency Provider Emergency Medicine; PCP Family Medicine
DX: R55 Syncope and collapse (principal); M54.5 Low back pain; R00.1 Bradycardia, unspecified; Z87.891 Personal history of nicotine dependence; J44.9 Chronic obstructive pulmonary disease, unspecified; I25.10 Atherosclerotic heart disease of native coronary artery without angina pectoris
CPT/HCPCS: 36415; 71046; 72100; 80048; 81001; 84484; 85025; 93005; 96361; 96374; 99284; J1885; J7030

== ENCOUNTER 2021-07-07 15:15 | Outpatient (RCR) | payer MEDICARE, SELFPAY ==
--- NOTE | 2021-06-23 12:26 | PTOPEVAL ---
Thank you for referring Justin Mittal to [facility].? The patient is scheduled to be seen for therapy?2 x/week for 4 weeks. Please review, sign, date and return this plan of care DEEPTHI. I agree with and certify that the following plan of care is medically necessary. Referring Physician Date Attending Provider: Jareth Burgos MD Diagnosis left knee OA and torn medial meniscus Cause unknown Additional Evaluation Detail He has OTS knee brace which he normally wears. He has 2 additional braces. He has been receiving injections for the knee, but no relief with the most recent injection 1 month ago. Subjective Information Reports he has been having Query Text:As Reported By Patient/ issues with his left knee Family since 08/29. 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 He has increased pain with work related task. He had previous therapy for his back, but does not peform his HEP. 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 He is limited with prolonged walking, standing and sitting. Increased pain with negotiating steps. Pain Assessment Left Knee(s) Reported Pain Level 3 Pain Description Aching,Sharp,Shooting,Soreness Pain Radiation Left Leg Pain Frequency Chronic,Continuous Lowest Pain Intensity 3 Greatest Pain Intensity 8 Pain Aggravating Factors ADL's,Bending,Exercise/ Activity,Lifting,Prolonged Position,Stair Climbing, Walking,Weight Bearing/ Standing Lower Extremity Range of Motion Knee Range of Motion Left Knee Flexion Range of Motion - Active 120 Knee Extension Range of Motion - Active 0 Lower Extremity Muscle Strength Testing General Lower Extremity Strength Gross Lower Extremity Strength right knee and hip 5/5 except hip abduction 4-/5 Hip Strength Left Hip Flexion Strength
--- NOTE | 2021-06-30 11:16 | PCPTNOTE ---
Patient did not show up for scheduled appointment this date.He forgot about his appt today. Reminded him of his next appt on Wed.
--- NOTE | 2021-07-07 15:32 | PCPTNOTE ---
Patient did not show up for scheduled appointment this date. Called & he stated he just called the front desk admin, he said sorry, he forgot
--- NOTE | 2021-07-09 08:58 | PCPTNOTE ---
Patient did not show up for scheduled appointment this date. Called and left voicemail about missed appointment. Reminded Pt of upcoming appointment on Thursday, July 15, 2021 @ 14:30, informed Pt to call if he is unable to make it due to new job.
--- NOTE | 2021-07-15 15:07 | PCPTNOTE ---
Patient did not show up for scheduled appointment this date. Called and left voicemail, informing Pt this is his 4th N/S. Informed Pt we will be discharging him if we do not hear back from him due to amount of N/S.
--- NOTE | 2021-07-16 10:20 | PCPTNOTE ---
Admitting Provider: Attending Provider: Jareth Burgos MD Patient:Justin Mittal Date of :1965 Discharge Summary Patient has not returned for any further treatments since 07/01/2021, therefore he will be discharged at this time. Patient?s initial visit was on 06/23/2021 11:30 and he had a total of 3 visits with 4 no show visits. . The goals have been not met due to poor compliance. Thank you for referring this patient to [facility]. Please review, sign, date and return this discharge summary DEEPTHI. I have been updated about the patient's current status and I agree with discharge from the above service at this time. Referring Physician Date
== END 2021-07-22 08:53 | disposition home or self-care (01) ==
LOC: ANHPT 15:15
PROVIDERS: PCP Family Medicine; Visit Provider Orthopaedic Surgery
DX: M17.12 Unilateral primary osteoarthritis, left knee (principal); S83.242D Other tear of medial meniscus, current injury, left knee, subsequent encounter
CPT/HCPCS: 97014; 97110; 97162; G0283

== ENCOUNTER 2021-07-22 07:21 | Outpatient (CLI) | payer MEDICARE, SELFPAY ==
[2021-07-22 08:07] LABS: Hematocrit 42.4 % (42.0-52.0); Hemoglobin 14.6 g/dL (14.0-18.0); Mean Corpuscular HGB Conc 34.4 g/dl (32-36); Mean Corpuscular Hemoglobin 30.1 pg (26-34); Mean Corpuscular Volume 87.4 fl (80-100); Mean Platelet Volume 9.4 fl (7.4-10.4); Platelet Count Result 215 k/mm3 (150-375); Red Blood Count 4.85 M/mm3 (4.6-6.20); Red Cell Distribution Width 14.1 % (11.5-14.5); White Blood Count 10.5 K/mm3 (4.5-10.0)
[2021-07-22 08:11] LABS: Hemoglobin A1C 5.9 % (<5.7)
[2021-07-22 08:20] LABS: Alanine Aminotransferase 43 U/L (4-50); Albumin Level 4.5 g/dL (3.5-5.1); Alkaline Phosphatase 76 U/L (38-126); Anion Gap 8 mmol/L (8-16); Aspartate Amino Transferase 39 U/L (17-59); Bilirubin,Total 0.3 mg/dL (0.2-1.3); Blood Urea Nitrogen 10 mg/dL (9-20); Calcium 9.1 mg/dL (8.4-10.2); Carbon Dioxide 25 mmol/L (22-30); Chloride 101 mmol/L (98-107); Cholesterol 203 mg/dL (0-200); Estimated Glomerular Filt Rate > 60; Glucose 152 mg/dL (65-110); HDL Direct 22 mg/dL; Potassium 3.9 mmol/L (3.4-5.0); Sodium 134 mmol/L (137-145); Triglycerides 478 mg/dL (<150)
[2021-07-22 08:31] LABS: LDL Cholesterol Direct 116 mg/dL
[2021-07-22 08:45] LABS: Creatinine Urine 83.4 mg/dL
[2021-07-22 08:49] LABS: Prostate Specific Antigen 0.6 ng/mL (< OR = 4.0)
[2021-07-22 08:59] LABS: MALB Creatinine Ratio < 7.2 mg/g (0-30); Microalbumin Urine Random < 6.0 mg/L (0-16.7)
== END 2021-07-22 07:22 | disposition home or self-care (01) ==
PROVIDERS: PCP Family Medicine; Visit Provider Family Medicine
DX: E78.5 Hyperlipidemia, unspecified (principal); Z13.220 Encounter for screening for lipoid disorders; I10 Essential (primary) hypertension; E11.9 Type 2 diabetes mellitus without complications; D64.9 Anemia, unspecified; Z12.5 Encounter for screening for malignant neoplasm of prostate
CPT/HCPCS: 36415; 80048; 80061; 80076; 82043; 83036; 84153; 85027; G0103

== ENCOUNTER 2021-07-31 12:29 | Outpatient (RCR) | payer OTHER, SELFPAY ==
[2021-07-31 12:30] VITALS: BP_SYST 155
--- NOTE | 2021-07-31 13:15 | PTOPEVAL ---
PHYSICAL THERAPY EVALUATION AND PLAN OF CARE 07-31-21 Thank you for referring Justin Mittal to [facility] for the diagnosis of R shoulder pain.? He is scheduled to be seen for therapy? 1-2 x/week for 3 weeks. Please review, sign, date and return this plan of care DEEPTHI. I agree with and certify that the following plan of care is medically necessary. Referring Physician Date Attending Provider: Morgan Bolton MD PT Outpatient Evaluation Document 07/31/21 12:30 JYOTSNA (Rec: 07/31/21 13:14 JYOTSNA [id number]) Past Medical History Source of Past Medical History Recalled from Previous Visit, Confirmed with Patient/Family Neurological History Hx Seizures Yes: 08/2019-PT N&V COUPLE DAYS- POSS. CARDIAC ARREST-CPR , ICU 4 DAYS VENT Cardiovascular History Hx Cardiac Catheterization Yes: 09/04/2019 NORMAL-NO ETIOLOGY CARDIAC FOR ARREST Hx Hypercholesterolemia Yes: meds Hx Hypertension Yes: meds Respiratory History Hx Other Respiratory Disorders Yes: intubation 08/28 after seizures Gastrointestinal History Hx Bowel Surgery Yes: 2010 PERFORATED COLON RESECTION DIVERTICULITIS Hx Diverticulitis Yes Hx Diverticulosis Yes Hx Gastroesophageal Reflux Disease Yes Hx Hernia Yes: INCISIONAL HERNIA REPAIR 2011 2ND TIME 6 MONTHS LATER, 3RD 6 MONTHS Hx Polyps Yes Genitourinary History Hx Genitourinary Disorders No Significant History Musculoskeletal History Hx Arthritis Yes: OA knee Hx Back Pain Yes: chronic back pain> 20 yr Hx Fractures Yes: 1999 SHATTERED L-WRIST Hx Orthopedic Surgery Yes: L-WRIST RECONSTRUCTION 1999, L-FOOT SURGERY 2012 Hx Other Musculoskeletal Disorders Yes: L-KNEE TORN MENISCUS, Hematological History Hx Hematological Disorders No Significant History Endocrine History Hx Diabetes Yes: TYPE 2 HEENT History Hx Cataracts Yes: BILATERAL SURGERY Hx Sinus Problems Yes: ALLERGIES Hx Dental Problems Yes: BROKEN TEETH Integumentary History Hx Skin Disorders No Significant History Reproductive History Hx Reproductive Disorders No Significant History Psychosocial History Hx Anxiety Yes Hx Bipolar Disorder Yes Hx Depression Yes Pain History Has Past Pain Affected Your Daily Life Yes: BACK KNEE History of Long-Term Prescription Pain Yes: HYDROCODONE Medication Use (Opiates) Anesthesia History Hx Anesthesia Reactions
--- NOTE | 2021-08-06 15:24 | PCPTNOTE ---
Patient did not show up for scheduled appointment this date. Called patient & he said he was sorry, but, he forgot.
--- NOTE | 2021-08-11 14:11 | PCPTNOTE ---
Patient did not show up for scheduled appointment this date. Called and spoke to patient. patient stated he was sorry but, he got busy, and forgot what time it was. Reminded patient of the hospital attendance policy, he stated that he knows that if he misses his next appointment, he will be discharged & his Dr would be notified.
--- NOTE | 2021-08-13 13:56 | PCPTNOTE ---
Patient did not show up for scheduled appointment this date. Called patient and had to leave a message, that this was his 3 no show, and he will be discharged per our policy.
--- NOTE | 2021-08-13 15:50 | PCPTNOTE ---
PHYSICAL THERAPY DISCHARGE 08-13-21 Attending Provider: Morgan Bolton MD Patient:Justin Mittal Date of :1965 Justin attended his PT evaluation on 07/31/2021, for the diagnosis of R shoulder pain. He did not show for the next 3 scheduled appointments, therefore he will be discharged at this time. The goals were not addressed. Thank you for referring Justin to [facility]. Please review, sign, date and return this discharge summary DEEPTHI. I have been updated about the patient's current status and I agree with discharge from the above service at this time. Referring Physician Date
== END 2021-08-14 14:28 | disposition home or self-care (01) ==
LOC: ANHPT 12:29
PROVIDERS: PCP Family Medicine; Visit Provider Family Medicine
DX: M75.41 Impingement syndrome of right shoulder (principal)
CPT/HCPCS: 97161

== ENCOUNTER 2021-09-09 13:53 | Outpatient (CLI) | payer MEDICARE, SELFPAY ==
--- NOTE | ~2021-09-09 | XR_ITS ---
XR lumbar spine 2-3V DATE: 09/09/2021 14:25 INDICATION: Low back pain TECHNIQUE: AP, lateral, coned lateral lumbosacral views COMPARISON: 04/29/2021 lumbar spine FINDINGS: There is mild levoscoliosis of the thoracolumbar spine. The included lower thoracic and lumbar pedicles are intact. No fracture or bone destruction of the eyad mbar spine is detected. There is mild to moderate degenerative disc disease at L1-2. The remaining lumbar and lumbosacral int erspaces appear well preserved. No spondylolisthesis. The sacroiliac joints are intact, with some degenerative change. IMPRESSION: Mild scoliosis Mild to moderate degenerative disc disease at L1-2 Reviewed, dictated and finalized at location B. N [facility]WL[facility]
== END 2021-09-09 13:54 ==
PROVIDERS: PCP Family Medicine; Visit Provider Nurse Practitioner Family
DX: M41.9 Scoliosis, unspecified (principal); M51.36 Other intervertebral disc degeneration, lumbar region
CPT/HCPCS: 72100

== ENCOUNTER 2021-09-19 11:54 | Outpatient (CLI) | payer MEDICARE, SELFPAY | END 2021-09-19 11:55 | disposition home or self-care (01) | LOC: ANHLAB 11:58 | PROVIDERS: PCP Family Medicine; Visit Provider Physician Assistant | DX: J43.9 Emphysema, unspecified (principal) | CPT/HCPCS: 36415; 82104 ==

== ENCOUNTER 2021-09-23 17:04 | Emergency (ER) | payer MEDICARE, SELFPAY ==
[2021-09-23 17:23] VITALS: BP 115/66; PULSE 87; RESP 20; TEMP 37.4; O2SAT 100
--- NOTE | 2021-09-23 18:04 | ED.GENADULT ---
HPI - General Adult General Chief complaint: Skin/Abscess/Foreign Body Stated complaint: Burn on right Hand Source: patient Mode of arrival: ambulatory Limitations: no limitations History of Present Illness HPI narrative: Patient presents for evaluation of burn to right hand. He states he was burning some wood this afternoon. He reached down to greens picker a stick and was unaware of the fact that it was burning. He now has a burning pain in right hand rated 6 out of 10 in severity. Pain is constant. No loss of ROM. No paresthesias. He has not taken any medication for his pain Related Data Home Medications Medication Instructions Recorded Confirmed aspirin 81 mg tablet,delayed 81 mg PO DAILY 08/22/19 09/23/21 release citalopram 20 mg PO DAILY 08/30/20 09/23/21 lamotrigine 200 mg tablet 200 mg PO DAILY 10/15/20 09/23/21 lurasidone 80 mg tablet 80 mg PO DAILY 09/09/21 09/23/21 risperidone 0.5 mg tablet 0.5 mg PO DAILY 09/09/21 09/23/21 Allergies Allergy/AdvReac Type Severity Reaction Status Date / Time No Known Allergies Allergy Unknown N/A Verified 09/23/21 17:10 [facility] Past Medical History Medical History Adenomatous colon polyp BMI 36.0-36.9,adult BMI over 35 COPD exacerbation Coronary artery disease Dysphagia Elevated triglycerides with high cholesterol Emphysema of lung Hyperlipidemia Impingement syndrome of right shoulder Opacity of lung on imaging study Seizure Tear of medial meniscus of left knee Surgical History Surgical History History of colon resection History of foot surgery History of hernia repair History of surgery on wrist Family History Family History Father Hypertension Family history of throat cancer Acute myocardial infarction Family history of malignant neoplasm of kidney History of kidney cancer Mother Family history of Alzheimer's disease Family history of diabetes mellitus in first degree relative Diabetes mellitus Sibling No problems noted. Other Cerebrovascular accident Family history of alcoholism Family history of cardiovascular disease Family history of coronary artery disease Family history of malignant neoplasm Family history of mental disorder Social History Social History Smoking packs per day: 1.5 Smoking cigarettes per day: 30.0 Years smoked: 30 Smoking pack-years: 45.00 Smoking status: Former smoker Tobacco type: cigarettes Second hand tobacco smoke exposure: No Smoking end date: 08/09/05 Alcohol intake: never Substance use: current Substance use type: marijuana Additional occupation/education comments: [employer] Gender identity (if verbalized by the patient): 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ns: No Course Course Level of Care: Express Care Visit Vital Signs Vital signs: Vital Signs Temperature 37.4 C 09/23/21 17:23 Pulse Rate 87 09/23/21 17:23 Respiratory Rate 20 09/23/21 17:23 Blood Pressure 115/66 09/23/21 17:23 Pulse Oximetry 100 09/23/21 17:23 Temperature 37.4 C 09/23/21 17:23 Pulse Rate 87 09/23/21 17:23 Respiratory Rate 20 09/23/21 17:23 Blood Pressure 115/66 09/23/21 17:23 Pulse Oximetry 100 09/23/21 17:23 Medical Decision Making Vital Signs Vital Signs: Vital Signs Temperature 37.4 C 09/23/21 17:23 Pulse Rate 87 09/23/21 17:23 Respiratory Rate 20 09/23/21 17:23 Blood Pressure 115/66 09/23/21 17:23 Pulse Oximetry 100 09/23/21 17:23 Temperature 37.4 C 09/23/21 17:23 Pulse Rate 87 09/23/21 17:23 Respiratory Rate 20 09/23/21 17:23 Blood Pressure 115/66 09/23/21 17:23 Pulse Oximetry 100 09/23/21 17:23 Discharge Plan Discharge Clinical Impression: Burn of palm of hand,
--- NOTE | 2021-09-23 18:09 | ED.GENADULT ---
HPI - General Adult General Chief complaint: Skin/Abscess/Foreign Body Stated complaint: Burn on right Hand Source: patient Mode of arrival: ambulatory Limitations: no limitations History of Present Illness HPI narrative: HPI narrative: Patient presents for evaluation of burn to right hand. He states he was burning some wood this afternoon. He reached down to crop picker a stick and was unaware of the fact that it was burning. He now has a burning pain in right hand rated 6 out of 10 in severity. Pain is constant. No loss of ROM. No paresthesias. He has not taken any medication for his pain. Date of last tetanus unknown. Reports redness to palmar aspect of right hand. He states he has diabetes but no longer on medication as his BS are well controlled. Last a1c was 5.9. Denies other complaints or concerns. Related Data Home Medications Medication Instructions Recorded Confirmed aspirin 81 mg tablet,delayed 81 mg PO DAILY 08/22/19 09/23/21 release citalopram 20 mg PO DAILY 08/30/20 09/23/21 lamotrigine 200 mg tablet 200 mg PO DAILY 10/15/20 09/23/21 lurasidone 80 mg tablet 80 mg PO DAILY 09/09/21 09/23/21 risperidone 0.5 mg tablet 0.5 mg PO DAILY 09/09/21 09/23/21 Allergies Allergy/AdvReac Type Severity Reaction Status Date / Time No Known Allergies Allergy Unknown N/A Verified 09/23/21 17:10 Review of Systems Review of Systems: CONSTITUTIONAL: Denies fever, chills, or sweats. EYES: Denies visual changes, redness, or discharge. ENT: Denies rhinorrhea, congestion, sore throat, or otalgia. CARDIOVASCULAR: Denies chest pain, palpitations, or edema. RESPIRATORY: Denies cough or dyspnea. GASTROINTESTINAL: Denies abdominal pain, nausea, vomiting, or diarrhea. GENITOURINARY: Denies dysuria or hematuria. SKIN: Reports redness to the palmar aspect of the right hand. Denies rash or itching. MUSCULOSKELETAL: Reports pain in right hand. Denies back pain, joint pain NEUROLOGIC: Denies headache, numbness, dizziness, or weakness. PSYCHIATRIC: Denies anxiety or depression. [facility] Past Medical History Medical History Adenomatous colon polyp BMI 36.0-36.9,adult BMI over 35 COPD exacerbation Coronary artery disease Dysphagia Elevated triglycerides with high cholesterol Emphysema of lung Hyperlipidemia Impingement syndrome of right shoulder Opacity of lung on imaging study Seizure Tear of medial meniscus of left knee Surgical History Surgical History History of colon resection History of foot surgery History of hernia repair History of surgery on wrist Family History Family History Father Hypertension Family history of throat cancer Acute myocardial infarction Family history of malignant neoplasm of kidney History of kidney cancer Mother Family history of Alzheimer's disease Family history of diabetes mellitus in first degree relative Diabetes mellitus Sibling No problems noted. Other Cerebrovascular accident Family history of alcoholism Family history of cardiovascular disease Family history of coronary artery disease Family history of malignant neoplasm Family history of mental disorder Social History Social History Smoking packs per day: 1.5 Smoking cigarettes per day: 30.0 Years smoked: 30 Smoking pack-years: 45.00 Smoking status: Former smoker Tobacco type: cigarettes Second hand tobacco smoke exposure: No Smoking end date: 08/09/05 Alcohol intake: never Substance use: current Substance use type: marijuana Additional occupation/education comments: [employer] Gender identity (if verbalized by the patient): 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ns: No Exam Narrative: GENERAL: Well-appearing, well-nourished, an
[2021-09-23] MEDS: TETANUS,DIPHTHERIA,AC PERTUSSIS ADULT (0.5 ML) BOOSTRIX IM (18:28)
== END 2021-09-23 18:35 | disposition home or self-care (01) ==
PROVIDERS: Emergency Provider Nurse Practitioner; PCP Family Medicine
DX: T23.151A Burn of first degree of right palm, initial encounter (principal); X08.8XXA Exposure to other specified smoke, fire and flames, initial encounter; Z23 Encounter for immunization; I25.10 Atherosclerotic heart disease of native coronary artery without angina pectoris; E78.5 Hyperlipidemia, unspecified; G40.909 Epilepsy, unspecified, not intractable, without status epilepticus; J44.9 Chronic obstructive pulmonary disease, unspecified; Z87.891 Personal history of nicotine dependence
CPT/HCPCS: 90471; 90715; 99213; G0463

== ENCOUNTER 2021-10-20 14:20 | Observation (INO) | payer MEDICARE, SELFPAY ==
--- NOTE | ~2021-10-20 | XR_ITS ---
EXAMINATION: XR abdomen obstructive series DATE: 10/21/2021 09:55 INDICATION: Abdominal pain. TECHNIQUE: Upright and supine views of the abdomen on 3 radiographs were obtained. COMPARISON: CT abdomen and pelvis 10/20/2021 FINDINGS: There are no dilated loops of bowel. There is a small volume of stool in the colon. No free intraperitoneal gas. There are old healed left rib fractures. IMPRESSION: 1. Normal bowel gas pattern. Reviewed, dictated and finalized at location A.
--- NOTE | ~2021-10-20 | CT_ITS ---
EXAMINATION: CT abdomen pelvis w con DATE: 10/20/2021 16:39 INDICATION: Abdominal pain. TECHNIQUE: Computed tomography (CT) of the abdomen and pelvis was performed with 100 mL Omnipaque 350 intravenous contrast. Automated exposure control and iterative reconstruction technique were employe d. The dose-length product was 1186.97 mGy-cm. COMPARISON: CT abdomen and pelvis 09/18/2020 FINDINGS: The visualized portions of the lung bases demonstrate mild atelectasis. No pleural effusion . The heart size is normal. No pericardial effusion. The liver, gallbladder, spleen, pancreas, adrena l glands, and kidneys are normal. The prostate is moderately enlarged. There is an anastomosis in the sigmoid colon. The appendix is normal. There is a mildly dilated loop of small bowel in right abdome n with desiccated stool. There are no pathologically enlarged lymph nodes. There is no free intraperi toneal fluid. There is mild lumbar spondylosis. IMPRESSION: 1. Mildly dilated loop of small bowel in right abdomen with desiccated stool, which may be adynamic i leus or partial small bowel obstruction. Reviewed, dictated and finalized at location A. IMPRESSION: 1. Mildly dilated loop of small bowel in right abdomen with desiccated stool, w hich may be adynamic ileus or partial small bowel obstruction.
[2021-10-20 14:40] VITALS: BP 156/87; PULSE 73; RESP 16; TEMP 36.5; O2SAT 99
[2021-10-20 15:39] LABS: Basophils Percent Auto 0.3 % (0.2-1.2); Eosinophils Absolute Auto 0.2 K/mm3 (0-0.3); Eosinophils Percent Auto 2.2 % (0-4.4); Hematocrit 39.8 % (42.0-52.0); Hemoglobin 13.6 g/dL (14.0-18.0); Immature Granulocyte Absolute 0.09 K/mm3 (0.00-0.031); Immature Granulocyte Percent A 0.9 % (0-0.5); Lymphocytes Absolute Auto 3.33 K/mm3 (0.9-3.2); Lymphocytes Percent Auto 31.9 % (18.3-44.2); Mean Corpuscular HGB Conc 34.2 g/dl (32-36); Mean Corpuscular Hemoglobin 30.8 pg (26-34); Mean Corpuscular Volume 90.2 fl (80-100); Mean Platelet Volume 9.2 fl (7.4-10.4); Monocytes Absolute Auto 0.7 K/mm3 (0.1-0.6); Monocytes Percent Auto 6.6 % (2.6-8.5); Neutrophils Absolute Auto 6.1 K/mm3 (1.3-6.7); Neutrophils Percent Auto 58.1 % (45.5-73.1); Platelet Count Result 281 k/mm3 (150-375); Red Blood Count 4.41 M/mm3 (4.6-6.20); Red Cell Distribution Width 14.7 % (11.5-14.5); White Blood Count 10.4 K/mm3 (4.5-10.0)
[2021-10-20 15:51] LABS: Alanine Aminotransferase 60 U/L (4-50); Albumin Level 4.1 g/dL (3.5-5.1); Alkaline Phosphatase 78 U/L (38-126); Anion Gap 6 mmol/L (8-16); Aspartate Amino Transferase 54 U/L (17-59); Bilirubin,Total 0.4 mg/dL (0.2-1.3); Blood Urea Nitrogen 12 mg/dL (9-20); Calcium 8.7 mg/dL (8.4-10.2); Carbon Dioxide 26 mmol/L (22-30); Chloride 105 mmol/L (98-107); Estimated CRCL calculation 98 ml/min; Estimated Glomerular Filt Rate > 60; Glucose 110 mg/dL (65-110); Lipase 65 U/L (23-300); Potassium 4.3 mmol/L (3.4-5.0); Sodium 137 mmol/L (137-145)
[2021-10-20 16:02] LABS: Add Urine Microscopic? YES; Appearance Urine Cloudy (Clear); Bacteria Urine Trace /hpf; Bilirubin Urine Negative (Negative); Blood Urine Negative (Negative); Color Urine Yellow (Yellow); Glucose Urine UA Negative (Negative); Ketones Urine Negative (Negative); Leukocyte Esterase Ur Negative LEU/UL (Negative); Mucus Urine Rare /lpf; Nitrate Urine Negative (Negative); Protein Urine Negative (Negative); RBC Urine 0-2 /hpf (0-2); Urobilinogen Urine Negative mg/dL (<2.0); WBC Urine 0-3 /hpf
[2021-10-20] MEDS: ONDANSETRON INJ 4 MG/2 ML VIAL IV PUSH (16:25)
[2021-10-20] MEDS: SODIUM CHLORIDE 0.9% IV 1,000 ML 999 ML IV CONT (16:25)
[2021-10-20] MEDS: MORPHINE SULFATE (*CRX) 4 MG/ML INJ IV PUSH (16:25)
[2021-10-20 16:28] VITALS: BP 136/81; PULSE 68; RESP 18; O2SAT 99
[2021-10-20 16:31] LABS: Lactic Acid Reflex 0.9 mmol/L (0.7-2.1)
--- NOTE | 2021-10-20 16:31 | ED.ABDPAIN ---
HPI - Abdominal Pain General Chief Complaint: Abdominal Pain Stated Complaint: abd cramps Time Seen by Provider: 10/20/21 15:40 Source: RN notes reviewed History of Present Illness HPI narrative: Patient presents to emergency department from home for abdominal pain. Patient states abdominal pain began today located in the lower abdomen described as cramping in nature denies any fevers or chills denies vomiting or diarrhea but does note intermittent nausea. States last bowel movement was 2 days ago. States he was admitted to [facility] approximately 2 weeks ago for a bowel obstruction at that time but is been feeling well since that time he denies any other symptoms Related Data Home Medications Medication Instructions Recorded Confirmed aspirin 81 mg tablet,delayed 81 mg PO DAILY 08/22/19 10/16/21 release citalopram 20 mg PO DAILY 08/30/20 10/16/21 lamotrigine 200 mg tablet 200 mg PO DAILY 10/15/20 10/16/21 lurasidone 80 mg tablet 80 mg PO DAILY 09/09/21 10/16/21 risperidone 0.5 mg tablet 0.5 mg PO DAILY 09/09/21 10/16/21 lamotrigine 100 mg PO HS 10/20/21 Allergies Allergy/AdvReac Type Severity Reaction Status Date / Time No Known Allergies Allergy Unknown N/A Verified 10/20/21 16:04 Review of Systems Review of Systems: Gen.: Denies fevers or chills ENT: Denies congestion Respiratory: Denies shortness of breath or cough CV: Denies chest pain or palpitations GI: See HPI denies burning, urgency, frequency or hematuria Musculoskeletal: Denies back pain or muscle pain Neuro: Denies numbness, tingling, weakness or focal weakness Skin: Denies rash Except as documented, all other systems reviewed and negative [facility] Past Medical History Medical History Adenomatous colon polyp BMI 36.0-36.9,adult BMI over 35 COPD exacerbation Coronary artery disease Dysphagia Elevated triglycerides with high cholesterol Emphysema of lung Hyperlipidemia Impingement syndrome of right shoulder Opacity of lung on imaging study Seizure Tear of medial meniscus of left knee Surgical History Surgical History History of colon resection History of foot surgery History of hernia repair History of surgery on wrist Family History Family History Father Hypertension Family history of throat cancer Acute myocardial infarction Family history of malignant neoplasm of kidney History of kidney cancer Mother Family history of Alzheimer's disease Family history of diabetes mellitus in first degree relative Diabetes mellitus Sibling No problems noted. Other Cerebrovascular accident Family history of alcoholism Family history of cardiovascular disease Family history of coronary artery disease Family history of malignant neoplasm Family history of mental disorder Social History Social History Smoking packs per day: 1.5 Smoking cigarettes per day: 30.0 Years smoked: 30 Smoking pack-years: 45.00 Smoking status: Former smoker Tobacco type: cigarettes Second hand tobacco smoke exposure: No Smoking end date: 08/09/05 Alcohol intake: never Substance use: current Substance use type: marijuana Additional occupation/education comments: [employer] Gender identity (if verbalized by the patient): 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ns: No Exam Narrative: APPEARANCE: No acute distress, nontoxic, resting in bed HEENT: Normocephalic, atraumatic, OMM RESPIRATORY: No respiratory distress, clear to auscultation bilaterally with no rhonchi wheezing or rales CARDIOVASCULAR: RRR s murmur ABDOMINAL: Soft, distended tender palpation the right lower quadrant left lower quadrant no tenderness in the right upper quadrant left upper quadrant no rebound or guarding MUSCULOSKE
[2021-10-20 17:17] VITALS: BP 135/84; PULSE 77; RESP 17; O2SAT 98
[2021-10-20 18:39] VITALS: BP 154/76; PULSE 69; RESP 18; TEMP 36.3; O2SAT 100; BMI 35.7
[2021-10-20] MEDS: SODIUM CHLORIDE 0.9% IV 1,000 ML 125 ML IV CONT (18:58)
--- NOTE | 2021-10-20 19:34 | ADMGEN ---
This patient, Justin Mittal, was admitted to [facility] Surg Room 301-01. Patient/family oriented to hospital policies and general routines including ID bracelet, bed and alarms, visiting hours, pain management, procedures, bathroom and other care routines, personal items, smoking policy, room service/diet, and visiting hours. Information on how to activate the Rapid Response Team has been discussed. Patient/Family are encouraged to report perceived risks to care and to ask questions if they do not understand what they are told or what they should do.
[2021-10-20] MEDS: KETOROLAC 15 MG/ML VIAL (*BKC) IV PUSH (19:37)
--- NOTE | 2021-10-20 21:27 | PM.IMHP ---
H&P: HPI History of Present Illness Date/Time: Patient was placed observation status for expected length of stay less than 23 hours for management, will plan to re-evaluate tomorrow for improvement. 10/20/21 21:27 Chief Complaint: Abdominal pain Narrative: Mr. Mittal is a 56-year-old gentleman who presented emergency room with complaints of abdominal pain. Patient was recently hospitalized approximately 1 and half weeks ago at [facility] with complaints of nausea, vomiting, and abdominal pain. Patient states at that time he was diagnosed with a small-bowel obstruction. Patient states he ended up having 1 bowel movement was discharged home. Patient states he had been doing fairly well and then over the last day he has began to have abdominal pain. Patient states he had a very small bowel movement this morning, but he typically has multiple bowel movements every day. Patient denies passing gas today. Patient denies any nausea or vomiting today. Patient denies any fever at home. Patient denies any chest pain, shortness for breath, lightheadedness, dizziness, syncopal, or near syncopal episodes. Patient has a known history of hypertension, diabetes mellitus, dyslipidemia, TIA, diverticulosis. Patient states he has had multiple abdominal surgeries including a colon resection for a perforated diverticulum and multiple hernia repairs. Review of Systems Review of Systems: A 12 point review of systems was completed patient all pertinent positive and negative per HPI the remainder are unremarkable. [facility] Past Medical History Medical History (Updated 10/20/21 @ 21:45 by Manda Varghese, GARMENT TURNER) Adenomatous colon polyp BMI 36.0-36.9,adult BMI over 35 COPD exacerbation Coronary artery disease Dysphagia Elevated triglycerides with high cholesterol Emphysema of lung Hyperlipidemia Hypertension Impingement syndrome of right shoulder Opacity of lung on imaging study Seizure Tear of medial meniscus of left knee Surgical History Surgical History History of colon resection History of foot surgery History of hernia repair History of surgery on wrist Family History Family History Father Hypertension Family history of throat cancer Acute myocardial infarction Family history of malignant neoplasm of kidney History of kidney cancer Mother Family history of Alzheimer's disease Family history of diabetes mellitus in first degree relative Diabetes mellitus Sibling No problems noted. Other Cerebrovascular accident Family history of alcoholism Family history of cardiovascular disease Family history of coronary artery disease Family history of malignant neoplasm Family history of mental disorder Social History Social History Smoking packs per day: 1.5 Smoking cigarettes per day: 30.0 Years smoked: 30 Smoking pack-years: 45.00 Smoking status: Former smoker Tobacco type: cigarettes Second hand tobacco smoke exposure: No Smoking end date: 10/07/97 Alcohol intake: former Substance use: current Substance use type: marijuana Other substance usage details: medical canibus Additional occupation/education comments: [employer] Gender identity (if verbalized by the patient): 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ns: No Meds Home Medications and Allergies Home Medications Medication Instructions Recorded Confirmed Type aspirin 81 mg tablet,delayed 81 mg PO DAILY 08/22/19 10/16/21 History release citalopram 20 mg PO DAILY 08/30/20 10/16/21 History lamotrigine 200 mg tablet 200 mg PO DAILY 10/15/20 10/16/21 History blood-glucose meter #1 ea 01/08/21 10/16/21 Rx lancets #100 ea 01/08/21 10/16/21 Rx blood sugar diagnostic #100 ea 01/09/21 10/16/21 Rx lisinopril 10 mg tablet See Rx Instructions .ROUTE 05/28/
[2021-10-20 22:00] VITALS: BP 144/70; PULSE 71; RESP 18; TEMP 36.4; O2SAT 98
[2021-10-21] MEDS: SODIUM CHLORIDE 0.9% IV 1,000 ML 100 ML IV CONT ×2 (00:24→14:38)
[2021-10-21 06:00] VITALS: BP 151/70; PULSE 69; RESP 18; TEMP 36.3; O2SAT 99
[2021-10-21 06:23] LABS: Basophils Percent Auto 0.4 % (0.2-1.2); Eosinophils Absolute Auto 0.2 K/mm3 (0-0.3); Eosinophils Percent Auto 2.3 % (0-4.4); Hematocrit 35.4 % (42.0-52.0); Hemoglobin 12.3 g/dL (14.0-18.0); Immature Granulocyte Absolute 0.07 K/mm3 (0.00-0.031); Immature Granulocyte Percent A 0.7 % (0-0.5); Lymphocytes Percent Auto 37.9 % (18.3-44.2); Mean Corpuscular HGB Conc 34.7 g/dl (32-36); Mean Corpuscular Hemoglobin 31.1 pg (26-34); Mean Corpuscular Volume 89.6 fl (80-100); Mean Platelet Volume 9.5 fl (7.4-10.4); Monocytes Absolute Auto 0.6 K/mm3 (0.1-0.6); Monocytes Percent Auto 6.7 % (2.6-8.5); Neutrophils Absolute Auto 4.9 K/mm3 (1.3-6.7); Platelet Count Result 238 k/mm3 (150-375); Red Blood Count 3.95 M/mm3 (4.6-6.20); Red Cell Distribution Width 14.6 % (11.5-14.5); White Blood Count 9.5 K/mm3 (4.5-10.0)
[2021-10-21 06:41] LABS: Alanine Aminotransferase 55 U/L (4-50); Albumin Level 3.4 g/dL (3.5-5.1); Alkaline Phosphatase 77 U/L (38-126); Anion Gap 5 mmol/L (8-16); Aspartate Amino Transferase 53 U/L (17-59); Bilirubin,Total 0.2 mg/dL (0.2-1.3); Blood Urea Nitrogen 12 mg/dL (9-20); Calcium 7.9 mg/dL (8.4-10.2); Carbon Dioxide 25 mmol/L (22-30); Chloride 107 mmol/L (98-107); Estimated CRCL calculation 105 ml/min; Estimated Glomerular Filt Rate > 60; Glucose 98 mg/dL (65-110); Sodium 137 mmol/L (137-145)
[2021-10-21 07:39] LABS: Glucose Point of Care 116 mg/dl (65-105)
[2021-10-21 08:00] VITALS: O2SAT 100
[2021-10-21] MEDS: ENOXAPARIN 40 MG/0.4 ML SYRINGE SUB-Q (08:01)
--- NOTE | 2021-10-21 10:28 | PM.CNGS ---
Assessment and Plan Assessment and plan (1) Partial small bowel obstruction: Code(s): K56.600 - Partial intestinal obstruction, unspecified as to cause Status: Acute Assessment and Plan: exam benign, imaging reviewed, cont serial exams, will start clears (2) BMI over 35: Status: Acute Assessment and Plan: dietary and lifestyle modifications (3) Hypertension: Code(s): I10 - Essential (primary) hypertension Status: Acute Assessment and Plan: mgmt per primary team (4) Prediabetes: Code(s): R73.03 - Prediabetes Status: Acute Assessment and Plan: mgmt per primary team History of Present Illness Consult details Consult date: 10/21/21 Reason for consult: abdominal pain Requesting physician: Manda Varghese APRN Narrative: The patient is a 56-year-old male emergency department complaining of severe crampy abdominal pain. The patient reports the pain has been going on over the last 24-48 hours. The patient reports he had a small bowel movement yesterday. The patient reports he has not passed much flatus. The patient denies any nausea or vomiting,, describes very poor appetite. The patient reports similar episode approximately 2 weeks ago for which he was admitted at an outside hospital for small bowel obstruction. The patient has had multiple abdominal surgeries in the past, including for perforated diverticulitis and multiple ventral hernias. Review of Systems Constitutional: Constitutional: Reports anorexia, Denies chills, Reports fatigue, Denies fever(s), Reports lethargy, Denies malaise, Reports poor appetite, Reports weakness, Denies weight gain and Denies weight loss Eyes: Eyes: Reports no additional eye complaints ENT: Reports system reviewed and no additional complaints, except as documented Cardiovascular: Cardiovascular: Reports no additional cardiovascular complaints Respiratory: Respiratory: Reports no additional respiratory complaints Gastrointestinal: Gastrointestinal: Reports as per HPI, Reports abdominal pain, Reports belching, Reports bloating, Reports change in bowel habits, Reports GI cramping, Denies diarrhea, Denies loose stools, Denies nausea and Denies vomiting Genitourinary: Genitourinary: Reports no additional male genitourinary complaints Musculoskeletal: Musculoskeletal: Reports no additional musculoskeletal complaints Integumentary/Breasts: Skin/Breast: Reports system reviewed and no additional complaints, except as docu Neurologic: Reports system reviewed and no additional complaints, except as documented Psychiatric: Psychiatric: Reports no additional psychiatric complaints Endocrine: Endocrine: Reports no additional endocrine complaints Hematologic/Lymphatic: Hematologic/Lymphatic: Reports no additional hematologic/lymphatic complaints Allergic/Immunologic: Allergic/Immunologic: Reports no additional allergic/immunologic complaints [facility] Past Medical History Medical History Adenomatous colon polyp BMI 36.0-36.9,adult BMI over 35 COPD exacerbation Coronary artery disease Dysphagia Elevated triglycerides with high cholesterol Emphysema of lung Hyperlipidemia Hypertension Impingement syndrome of right shoulder Opacity of lung on imaging study Seizure Tear of medial meniscus of left knee Surgical History Surgical History History of colon resection History of foot surgery History of hernia repair History of surgery on wrist Family History Family History Father Hypertension Family history of throat cancer Acute myocardial infarction Family history of malignant neoplasm of kidney History of kidney cancer Mother Family history of Alzheimer's disease Family history of diabetes mellitus in first degree relative Diabetes mellitus Sibli
[2021-10-21 11:29] LABS: Glucose Point of Care 150 mg/dl (65-105)
[2021-10-21 13:39] VITALS: BP 154/83; PULSE 75; RESP 14; TEMP 36.4; O2SAT 99
[2021-10-21 14:02] VITALS: PULSE 73; O2SAT 98
--- NOTE | 2021-10-21 15:21 | PM.IMPN ---
Progress Note: A&P Assessment and Plan (1) Partial small bowel obstruction: Code(s): K56.600 - Partial intestinal obstruction, unspecified as to cause Status: Acute Assessment and Plan: General surgery has been consult low due appreciating further recommendations. Since patient is not having any nausea or vomiting at this time NG tube will be avoided. Encourage patient to ambulate in the halls to help bowels to start moving. Patient is NPO at this time. Will hydrate patient with IV fluids at this time. Will avoid narcotics at this time CIS will decrease patient's peristalsis. (2) Hypertension: Code(s): I10 - Essential (primary) hypertension Status: Acute Assessment and Plan: Patient is NPO at this time secondary to partial bowel obstruction. Will have p.r.n. IV antihypertensives until patient is seen by General surgery. Subjective Date/time seen: 10/21/21 15:21 Interval history: HPI:Mr. Mittal is a 56-year-old gentleman who presented emergency room with complaints of abdominal pain. Patient was recently hospitalized approximately 1 and half weeks ago at [facility] with complaints of nausea, vomiting, and abdominal pain. Patient states at that time he was diagnosed with a small-bowel obstruction. Patient states he ended up having 1 bowel movement was discharged home. Patient states he had been doing fairly well and then over the last day he has began to have abdominal pain. Patient states he had a very small bowel movement this morning, but he typically has multiple bowel movements every day. Patient denies passing gas today. Patient denies any nausea or vomiting today. Patient denies any fever at home. Patient denies any chest pain, shortness for breath, lightheadedness, dizziness, syncopal, or near syncopal episodes. Patient has a known history of hypertension, diabetes mellitus, dyslipidemia, TIA, diverticulosis. Patient states he has had multiple abdominal surgeries including a colon resection for a perforated diverticulum and multiple hernia repairs. Exam Narrative: Constitutional: Patient is well-nourished in no acute distress. Patient is alert and oriented x3 HEENT: Moist mucous membranes. No scleral icterus. No lymphadenopathy. Neck: No carotid bruits noted no JVD noted Lungs: Lung sounds are clear to auscultation bilaterally. No accessory muscle use. No rhonchi, rales, or wheezes noted. Cardiovascular: Apical pulse is regular rate and rhythm. S1-S2 noted, no S3 or S4 noted. No gallops, murmurs, or rubs noted. Abdomen: Abdomen mildly distended with hypoactive bowel sounds. Patient states that his abdomen is tender to palpation in the left upper quadrant. No palpable masses. Extremities: No edema. Nontender. Skin: No rashes or lesions. Warm and dry. Skin is intact. Neurological: No focal neurological deficits. Cranial nerves II-XII grossly intact. Psychiatric: Cooperative, appropriate mood, and affect Objective Data Vital Signs Vital Signs: Vital Signs - 24 hr 10/20/21 16:28 10/20/21 17:17 10/20/21 18:39 Temperature 97.4 F L Pulse Rate 68 77 69 Respiratory Rate 18 17 18 Blood Pressure 136/81 135/84 154/76 H Pulse Oximetry 99 98 100 10/20/21 22:00 10/21/21 06:00 10/21/21 08:00 Temperature 97.6 F 97.3 F L Pulse Rate 71 69 Respiratory Rate 18 18 Blood Pressure 144/70 H 151/70 H Pulse Oximetry 98 99 100 10/21/21 13:39 10/21/21 14:02 Temperature 97.6 F Pulse Rate 75 73 Respiratory Rate 14 Blood Pressure 154/83 H Pulse Oximetry 99 98 Intake/Output Intake/Output: Intake & Output 10/18/21 10/19/21 10/20/21 10/21/21 22:59 23:59 23:59 23:59 Intake Total 1000 1240 Balance 1000 1240 Meds/Results Medications: Active Medications Generic Name Dose Route Start Last Admin Trade Name Freq PRN Reason Stop Dose Admin Enoxaparin Sodium 40 mg 10/21/21 09:00 10/21/21 08:01 Enoxaparin 40 Mg/0.4 Ml Syringe SUB-Q 40 mg
--- NOTE | 2021-10-21 15:38 | PM.DS ---
DS: Admitting Diagnosis Discharge Date 10/21/2021 Admitting Diagnosis Abdominal pain DS: Discharge Diagnosis Discharge Diagnosis (1) Partial small bowel obstruction: Code(s): K56.600 - Partial intestinal obstruction, unspecified as to cause Status: Acute Assessment and Plan: Presented with abdominal pain in right side of her is belly. Recent history of bowel obstruction which [facility] He had multiple abdominal surgeries in the past included perforated diverticulitis and multiple ventral hernias. CT abdomen and pelvis done on arrival to the ER showed ileus versus partial small-bowel obstruction. His abdominal examination was benign in was serially monitored during the hospital stay. Repeat x-ray in the morning showed normal bowel gas pattern. He had past flat us and also had multiple bowel movements during the hospital stay. He was started on diet starting with clear and was advanced during the hospital stay and he tolerated well without any worsening symptoms. He was cleared from the General surgery standpoint to go home and follow-up as an outpatient basis. (2) Hypertension: Code(s): I10 - Essential (primary) hypertension Status: Acute Assessment and Plan: Resume home medication at discharge DS: Summary Hospital Course Hospital Course: See above Time Spent with Patient Time attestation: Total time spent providing and/or coordinating discharge services: 32 minutes Time spent: Greater than 30 minutes Exam Narrative: Constitutional: Patient is well-nourished in no acute distress. Patient is alert and oriented x3 HEENT: Moist mucous membranes. No scleral icterus. No lymphadenopathy. Neck: No carotid bruits noted no JVD noted Lungs: Lung sounds are clear to auscultation bilaterally. No accessory muscle use. No rhonchi, rales, or wheezes noted. Cardiovascular: Apical pulse is regular rate and rhythm. S1-S2 noted, no S3 or S4 noted. No gallops, murmurs, or rubs noted. Abdomen: Abdomen mildly distended with normoactive bowel sounds nontender Extremities: No edema. Nontender. Skin: No rashes or lesions. Warm and dry. Skin is intact. Neurological: No focal neurological deficits. Cranial nerves II-XII grossly intact. Psychiatric: Cooperative, appropriate mood, and affect DS: Data Data Completed and Pending Labs on day of discharge: Labs from last 24 hours 10/21/21 10/21/21 10/21/21 11:26 07:37 05:40 WBC RBC Hgb Hct MCV MCH MCHC RDW Plt Count MPV Immature Gran % (Auto) Neut % (Auto) Lymph % (Auto) Prentiss % (Auto) Eos % (Auto) Baso % (Auto) Lymph # (Auto) Prentiss # (Auto) Eos # (Auto) Baso # (Auto) Abs Immat Gran (auto) Absolute Neuts (auto) Absolute Nucleated RBC Nucleated RBC % Sodium 137 Potassium 4.0 Chloride 107 Carbon Dioxide 25 Anion Gap 5 L BUN 12 Creatinine 0.80 Estim Creat Clear Calc 105 Estimated GFR > 60 Glucose 98 POC Capillary Glucose 150 H 116 H Lactic Acid Calcium 7.9 L Total Bilirubin 0.2 AST 53 ALT 55 H Alkaline Phosphatase 77 Total Protein 6.0 L Albumin 3.4 L Lipase Urine Color Urine Appearance Urine pH Ur Specific Brewster Urine Protein Urine Glucose (UA) Urine Ketones Ur Blood (Man) Urine Nitrate Urine Bilirubin Urine Urobilinogen Leukocyte Esterase Rfl Urine RBC Urine WBC Urine Bacteria Urine Mucus 10/21/21 10/20/21 10/20/21 05:40 16:12 15:53 WBC 9.5 RBC 3.95 L Hgb 12.3 L Hct 35.4 L MCV 89.6 MCH 31.1 MCHC 34.7 RDW 14.6 H Plt Count 238 MPV 9.5 Immature Gran % (Auto) 0.7 H Neut % (Auto) 52.0 Lymph % (Auto) 37.9 Prentiss % (Auto) 6.7 Eos % (Auto) 2.3 Baso % (Auto) 0.4 Lymph # (Auto) 3.60 H Prentiss # (Auto) 0.6 Eos # (Auto) 0.2
[2021-10-21 16:10] LABS: Glucose Point of Care 113 mg/dl (65-105)
== END 2021-10-21 16:16 | disposition home or self-care (01) ==
LOC: ANHED 17:37 → ANH3MEDSUR 18:32
PROVIDERS: Admitting Provider Internal Medicine; Emergency Provider Emergency Medicine; PCP Family Medicine; Visit Provider Internal Medicine
DX: K56.600 Partial intestinal obstruction, unspecified as to cause (principal); I10 Essential (primary) hypertension; R73.03 Prediabetes; G40.909 Epilepsy, unspecified, not intractable, without status epilepticus; J44.9 Chronic obstructive pulmonary disease, unspecified; I25.10 Atherosclerotic heart disease of native coronary artery without angina pectoris; E78.1 Pure hyperglyceridemia; E78.00 Pure hypercholesterolemia, unspecified; Z90.49 Acquired absence of other specified parts of digestive tract; Z87.891 Personal history of nicotine dependence; F12.90 Cannabis use, unspecified, uncomplicated; Z79.82 Long term (current) use of aspirin; Z79.51 Long term (current) use of inhaled steroids; Z79.02 Long term (current) use of antithrombotics/antiplatelets
CPT/HCPCS: 36415; 74019; 74177; 80053; 81001; 82948; 83605; 83690; 85025; 96361; 96372; 96374; 96375; 99285; G0378; J1650; J1885; J2270; J2405; J7030; Q9967

== ENCOUNTER 2021-10-27 11:08 | Outpatient (CLI) | payer MEDICARE, SELFPAY ==
[2021-10-27 11:22] LABS: Basophils Absolute Auto 0.1 K/mm3 (0.0-0.1); Basophils Percent Auto 0.5 % (0.2-1.2); Eosinophils Absolute Auto 0.2 K/mm3 (0-0.3); Hemoglobin 13.7 g/dL (14.0-18.0); Immature Granulocyte Absolute 0.07 K/mm3 (0.00-0.031); Immature Granulocyte Percent A 0.6 % (0-0.5); Lymphocytes Absolute Auto 4.21 K/mm3 (0.9-3.2); Lymphocytes Percent Auto 35.9 % (18.3-44.2); Mean Corpuscular HGB Conc 34.3 g/dl (32-36); Mean Corpuscular Hemoglobin 30.7 pg (26-34); Mean Corpuscular Volume 89.7 fl (80-100); Mean Platelet Volume 9.2 fl (7.4-10.4); Monocytes Absolute Auto 1.2 K/mm3 (0.1-0.6); Monocytes Percent Auto 10.4 % (2.6-8.5); Neutrophils Absolute Auto 5.9 K/mm3 (1.3-6.7); Neutrophils Percent Auto 50.6 % (45.5-73.1); Platelet Count Result 244 k/mm3 (150-375); Red Blood Count 4.46 M/mm3 (4.6-6.20); Red Cell Distribution Width 14.6 % (11.5-14.5); White Blood Count 11.7 K/mm3 (4.5-10.0)
[2021-10-27 11:38] LABS: Hemoglobin A1C 6.2 % (<5.7)
== END 2021-10-27 11:09 | disposition home or self-care (01) ==
LOC: ANHLAB 11:10
PROVIDERS: PCP Family Medicine; Visit Provider Nurse Practitioner Family
DX: R73.03 Prediabetes (principal); D72.829 Elevated white blood cell count, unspecified
CPT/HCPCS: 36415; 83036; 85025

== ENCOUNTER 2021-11-20 10:19 | Outpatient (CLI) | payer MEDICARE, SELFPAY ==
--- NOTE | ~2021-11-20 | XR_ITS ---
EXAMINATION: XR abdomen/kub 1V INDICATION: Alternating diarrhea and constipation TECHNIQUE: Supine view of the abdomen is obtained on three radiographs COMPARISON: 10/21/2021 FINDINGS: There is gaseous distention of the transverse colon. Stool and gas are seen in the rectum. There are no dilated loops of small bowel. The visualized lung bases are clear. There is osteoarthrit is of the hips. IMPRESSION: 1. Mild gaseous distention of the transverse colon Reviewed, dictated and finalized at location A.
== END 2021-11-20 10:20 | disposition home or self-care (01) ==
LOC: ANHIMG 10:22
PROVIDERS: PCP Family Medicine; Visit Provider Nurse Practitioner Family
DX: R19.7 Diarrhea, unspecified (principal); K56.600 Partial intestinal obstruction, unspecified as to cause
CPT/HCPCS: 74018

== ENCOUNTER 2021-11-24 13:07 | Outpatient (CLI) | payer MEDICARE, SELFPAY ==
--- NOTE | ~2021-11-24 | XR_ITS ---
EXAM: XR abdomen/kub 1V HISTORY: Constipation and diarrhea COMPARISON: 11/20/2021 FINDINGS: Lung bases clear. Normal bowel gas pattern. Vascular calcifications project over the pelvi s. Bilateral hip osteoarthritis. IMPRESSION: No obstruction or ileus. Reviewed, dictated and finalized at location K. IMPRESSION: No obstruction or ileus.
== END 2021-11-24 13:08 | disposition home or self-care (01) ==
LOC: ANHIMG 13:11
PROVIDERS: PCP Family Medicine; Visit Provider Nurse Practitioner Family
DX: K63.89 Other specified diseases of intestine (principal)
CPT/HCPCS: 74018

== ENCOUNTER 2021-12-12 13:32 | Outpatient (CLI) | payer MEDICARE, SELFPAY ==
--- NOTE | ~2021-12-12 | XR_ITS ---
EXAMINATION: XR shoulder RT min 2V INDICATION: Impingement syndrome of the right shoulder TECHNIQUE: Four views of the right shoulder are submitted. COMPARISON: 03/28/2007 FINDINGS: Normal alignment. No fracture. There is moderate osteoarthritis of the acromioclavicular humberto int and mild osteoarthritis of the glenohumeral joint. Soft tissues are unremarkable. IMPRESSION: 1. Osteoarthritis without acute osseous abnormality. Reviewed, dictated and finalized at location B.
== END 2021-12-12 13:33 | disposition home or self-care (01) ==
LOC: ANHIMG 13:35
PROVIDERS: PCP Family Medicine; Visit Provider Nurse Practitioner Family
DX: M75.41 Impingement syndrome of right shoulder (principal); M19.011 Primary osteoarthritis, right shoulder
CPT/HCPCS: 73030

== ENCOUNTER 2021-12-25 09:04 | Outpatient (CLI) | payer MEDICARE, OTHER, SELFPAY ==
--- NOTE | ~2021-12-25 | MR_ITS ---
EXAMINATION: MR shoulder RT wo con DATE: 12/25/2021 09:46 INDICATION: Impingement syndrome of the right shoulder presenting with right shoulder pain TECHNIQUE: Magnetic resonance imaging (MRI) of the right shoulder was performed without intravenous c ontrast. Sequences included axial PD-weighted FS FSE, coronal oblique PD-weighted FS FSE, coronal obl ique T2-weighted FS FSE, sagittal PD-weighted FS FSE, and sagittal T1-weighted SE. COMPARISON: None. FINDINGS: Coracoacromial arch: The acromion undersurface is curved in morphology (type II). The coracoacromial ligament is normal. M ild to moderate acromioclavicular osteoarthritis with subarticular cystic change at the lateral head of the clavicle. Rotator cuff: Moderate tendinopathy of the conjoined portion of the supraspinatus and infraspinatus tendons with mi ld tendinopathy the more anterior supraspinatus and posterior infraspinatus tendons. Very small intra substance tear at the conjoined portion of the tendons which measures 3 mm AP and involving approxima tely one half the tendon thickness. The subscapularis and teres minor tendons are normal. Normal rota tor cuff muscle bulk and signal. Biceps tendon, glenoid labrum and glenohumeral cartilage: Long head of the biceps tendon is normal. Partial-thickness tear along the articular side of the base of the 11:00-11:30 position of the posterior superior glenoid labrum. Glenohumeral cartilage is norm al. Fluid: Physiologic amount of fluid in the glenohumeral joint and biceps tendon sheath. No loose osteochondr al bodies. Small amount of fluid in the subacromial/subdeltoid bursa consistent with mild bursitis. Bones: No fracture or pathologic marrow replacing process. Mild cystic change at the greater tuberosity. IMPRESSION: 1. Moderate tendinopathy and very small moderate severity partial-thickness intrasubstance tear along the footplate of the conjoined portion of the supraspinatus and infraspinatus tendons. 2. Small superior, anterior to posterior tear of the glenoid labrum (SLAP tear). 3. Mild to moderate acromioclavicular osteoarthritis. 4. Mild subacromial/subdeltoid bursitis. Reviewed, dictated and finalized at location A. IMPRESSION: 1. Moderate tendinopathy and very small moderate severity partial-thickness int rasubstance tear along the footplate of the conjoined portion of the supraspina tus and infraspinatus tendons. 2. Small superior, anterior to posterior tear of the glenoid labrum (SLAP tear) . 3. Mild to moderate acromioclavicular osteoarthritis. 4. Mild subacromial/subdeltoid bursitis.
== END 2021-12-25 09:05 | disposition home or self-care (01) ==
LOC: ANHIMG 09:05
PROVIDERS: PCP Family Medicine; Visit Provider Nurse Practitioner Family
DX: M19.011 Primary osteoarthritis, right shoulder (principal); M75.51 Bursitis of right shoulder
CPT/HCPCS: 73221

== ENCOUNTER 2021-12-29 14:06 | Outpatient (CLI) | payer MEDICARE, OTHER, SELFPAY ==
--- NOTE | ~2021-12-29 | XR_ITS ---
XR knee LT 2V 12/29/2021 14:26 Indication: Left knee pain Procedure: 2 views left knee Comparison: Comparison to multiple prior studies sequentially, with oldest reviewed study dated 04/21. Findings: There is mild tricompartment osteoarthritis of the left knee. No fracture or traumatic jose eduardo lignment. No significant joint effusion. No foreign bodies. Impression: 1: Mild tricompartment osteoarthritis of the left knee. Reviewed, dictated and finalized at location A. Impression: 1: Mild tricompartment osteoarthritis of the left knee.
== END 2021-12-29 14:07 | disposition home or self-care (01) ==
PROVIDERS: PCP Family Medicine; Visit Provider Nurse Practitioner Family
DX: M17.12 Unilateral primary osteoarthritis, left knee (principal)
CPT/HCPCS: 73560

== ENCOUNTER 2022-01-22 15:16 | Emergency (ER) | payer MEDICARE, OTHER, SELFPAY ==
--- NOTE | ~2022-01-22 | XR_ITS ---
XR knee LT min 4V DATE: 01/22/2022 15:53 INDICATION: Unable to bear weight. Knee without a few days ago. Left knee pain. TECHNIQUE: 4 views COMPARISON: 12/29/2021 left knee FINDINGS: Prominent suprapatellar knee joint effusion. There is mild loss of height of the medial compartment joint space. There is mild periarticular spurr ing of the patellofemoral and medial compartments. No fracture or dislocation, radiopaque intra-articular loose body or chondrocalcinosis is detected. N o periosteal reaction or bone destruction. IMPRESSION: Prominent suprapatellar knee joint effusion Mild patellofemoral and medial compartment osteoarthritis Reviewed, dictated and finalized at location A.
[2022-01-22 15:22] VITALS: BP 148/84; PULSE 88; RESP 16; TEMP 36.4; O2SAT 98
--- NOTE | 2022-01-22 16:18 | ED.LOWEXIN ---
HPI - Extremity Injury (Lower) General Chief Complaint: Extremity Injury, Lower Stated Complaint: left knee pain Time Seen by Provider: 01/22/22 15:21 History of Present Illness HPI Narrative: 56-year-old male presents emerged from complaining of pain to his left knee. Is had chronic issues with his left knee. Is been under the care of an orthopedic surgeon awaiting for insurance approval to get an MRI of the left knee performed. States he uses a brace at home. States he also is taking hydrocodone as well as ibuprofen. He also has crutches as well as a walker to assist him. This past weekend he states his knee gave out . He states this is happened in the past but generally within a day he can start to bear weight on it moving again. However this time he is continue to have pain when he tries to put any weight on his left knee was concerned may be something more serious had at this point. Related Data Home Medications Medication Instructions Recorded Confirmed citalopram 20 mg tablet 20 mg PO DAILY 08/30/20 01/08/22 lamotrigine 200 mg tablet 200 mg PO DAILY 10/15/20 01/08/22 (Lamictal) lurasidone 80 mg tablet (Latuda) 80 mg PO DAILY 09/09/21 01/08/22 risperidone 0.5 mg tablet 0.5 mg PO DAILY 09/09/21 01/08/22 (Risperdal) albuterol sulfate 90 mcg/actuation See Rx Instructions .Route 10/20/21 01/08/22 aerosol inhaler .COMPLEX PRN Shortness Of Breath Or Wheezing doxepin 10 mg capsule 10 mg PO DAILY 10/20/21 01/08/22 lamotrigine 100 mg tablet 100 mg PO HS 10/20/21 01/08/22 Allergies Allergy/AdvReac Type Severity Reaction Status Date / Time No Known Allergies Allergy Unknown N/A Verified 01/22/22 15:19 Review of Systems Review of Systems: CONSTITUTIONAL: Denies fever, chills, or sweats. EYES: Denies visual changes, redness, or discharge. ENT: Denies rhinorrhea, congestion, sore throat, or otalgia. CARDIOVASCULAR: Denies chest pain, palpitations, or edema. RESPIRATORY: Denies cough or dyspnea. GASTROINTESTINAL: Denies abdominal pain, nausea, vomiting, or diarrhea. GENITOURINARY: Denies dysuria or hematuria. SKIN: Denies rash or itching. MUSCULOSKELETAL: Pain to his left knee with swelling and inability to bear weight on it NEUROLOGIC: Denies headache, numbness, or weakness. PSYCHIATRIC: Denies anxiety or depression. [facility] Past Medical History Medical History Adenomatous colon polyp BMI 36.0-36.9,adult BMI 37.0-37.9, adult BMI over 35 Bowel obstruction COPD exacerbation Coronary artery disease Dysphagia Elevated triglycerides with high cholesterol Emphysema of lung Hyperlipidemia Hypertension Impingement syndrome of right shoulder Opacity of lung on imaging study Seizure Tear of medial meniscus of left knee Surgical History Surgical History History of colon resection History of foot surgery History of hernia repair History of surgery on wrist Family History Family History Father Hypertension Family history of throat cancer Acute myocardial infarction Family history of malignant neoplasm of kidney History of kidney cancer Mother Family history of Alzheimer's disease Family history of diabetes mellitus in first degree relative Diabetes mellitus Sibling No problems noted. Other Cerebrovascular accident Family history of alcoholism Family history of cardiovascular disease Family history of coronary artery disease Family history of malignant neoplasm Family history of mental disorder Social History Social History Smoking packs per day: 1.5 Smoking cigarettes per day: 30.0 Years smoked: 30 Smoking pack-years: 45.00 Smoking status: Never smoker Tobacco type: cigarettes Second hand tobacco smoke exposure: No Smoking end date: 10/07/97 Elisabet
[2022-01-22 16:49] VITALS: BP 139/89; PULSE 90; RESP 18; O2SAT 97
== END 2022-01-22 16:49 | disposition home or self-care (01) ==
PROVIDERS: Emergency Provider Emergency Medicine; PCP Family Medicine
DX: M17.12 Unilateral primary osteoarthritis, left knee (principal); I25.10 Atherosclerotic heart disease of native coronary artery without angina pectoris; J43.9 Emphysema, unspecified; E78.5 Hyperlipidemia, unspecified; I10 Essential (primary) hypertension; Z86.010 Personal history of colon polyps; Z90.49 Acquired absence of other specified parts of digestive tract; Z87.891 Personal history of nicotine dependence
CPT/HCPCS: 73564; 99283

== ENCOUNTER 2022-01-31 10:37 | Outpatient (CLI) | payer MEDICARE, OTHER, SELFPAY ==
--- NOTE | ~2022-01-31 | MR_ITS ---
EXAMINATION: MR knee LT wo con DATE: 01/31/2022 11:10 INDICATION: Left knee pain, swelling, sensation of giving out. TECHNIQUE: Magnetic resonance imaging (MRI) of the left knee was performed without intravenous contra st. Sequences included axial PD-weighted FS FSE, coronal PD-weighted FSE and PD-weighted FS FSE, sagi ttal PD-weighted FSE, and sagittal T2-weighted FS FSE. COMPARISON: None. FINDINGS: Medial compartment: Severe narrowing. Moderate osteophytosis. Severe diffuse cartilage thinning with large full-thickness defects. Complex tear at the junction of the body and posterior horn of the medial meniscus. Lateral compartment: Moderate diffuse thinning of cartilage. Mild joint space narrowing and osteophytosis. No meniscal tea r. Patellofemoral compartment: Minimal partial-thickness cartilage signal change on the medial facet. Retinacula are intact. Mild os teophytosis. Ligaments and tendons: ACL, PCL, MCL, and LCL are intact. Major flexor and extensor tendons are intact. Fluid: Large volume joint fluid. No definite loose body. Minimal synovitis. Osseous/other: Medial plateau sclerosis. Focal marrow edema deep to the area of full-thickness cartilage loss on the medial condyle. IMPRESSION: 1. Tricompartmental osteoarthritis, severe in the medial compartment. 2. Full-thickness cartilage loss and subchondral marrow edema on the weightbearing surface the medial condyle. 3. Complex tear at the junction of the body and posterior horn, medial meniscus. 4. Large left knee joint effusion. Reviewed, dictated and finalized at location K. IMPRESSION: 1. Tricompartmental osteoarthritis, severe in the medial compartment. 2. Full-thickness cartilage loss and subchondral marrow edema on the weightbear ing surface the medial condyle. 3. Complex tear at the junction of the body and posterior horn, medial meniscus . 4. Large left knee joint effusion.
== END 2022-01-31 10:38 | disposition home or self-care (01) ==
PROVIDERS: PCP Family Medicine; Visit Provider Nurse Practitioner Family
DX: M17.12 Unilateral primary osteoarthritis, left knee (principal); M25.462 Effusion, left knee; S83.232A Complex tear of medial meniscus, current injury, left knee, initial encounter; X58.XXXA Exposure to other specified factors, initial encounter
CPT/HCPCS: 73721

== ENCOUNTER 2022-03-16 12:30 | Outpatient (RCR) | payer MEDICARE, SELFPAY ==
--- NOTE | 2022-02-10 11:14 | PTOPEVAL ---
PHYSICAL THERAPY EVALUATION AND PLAN OF CARE Thank you for referring Justin Mittal to [facility].? The patient is scheduled to be seen for therapy? 1-2x/week for 3-5 weeks. Please review, sign, date and return this plan of care DEEPTHI. I agree with and certify that the following plan of care is medically necessary. Referring Physician Date Attending Provider: Yuko Lockhart NP Diagnosis left knee pain Onset 6months Subjective Information States that his left knee has Query Text:As Reported By Patient/ been giving out. He reports Family multiple episodes of knee giving out and pain. Sometimes the left knee will give out and other days he feels like he can walk for a long time. MRI indicates meniscus tear, OA, knee effusion. His Orthopedic appt was re- scheduled to today.Wears a brace with some stabilizers and it helps to keep it more stable. Self Report Pain Assessment Left Knee(s) Reported Pain Level 4 Pain Description Sharp,Shooting,Throbbing,With Movement Pain Frequency Chronic,Continuous Lowest Pain Intensity 3 Greatest Pain Intensity 8 Knee Range of Motion Left Knee Flexion Range of Motion - Active 101 Knee Extension Range of Motion - Active -8 Query Text: Lower Extremity Muscle Strength Testing Hip Strength Left Hip Flexion Strength 5 Normal Hip Extension Strength 4 Good Hip Abduction Strength 4 Good Knee Strength Left Knee Flexion Strength 4+ Good + Knee Extension Strength 4+ Good + Knee Strength Comments good quat set with poor endurance: holds <3seconds before fatigue Muscle Length Testing Left Hamstring Length -30deg Query Text:(90 - 90 Position) Left Prone Knee Flexor Muscle Length ( 90deg Gait Assessment Other Gait Observations left hip drop in stance phase PT Clinical Summary Justin is a 57 yo male presenting to outpatient physical therapy with chronic left knee pain. He demonstrates abnormal gait pattern with left hip drop and poor activation and endurance of left glutes and quadriceps .
--- NOTE | 2022-02-17 14:40 | PCPTNOTE ---
Patient called & cancelled scheduled appointment this date due to being stuck in [place].
--- NOTE | 2022-03-03 13:48 | PCPTNOTE ---
Patient called & re-scheduled appointment this date due to having to watch grandchildren.
--- NOTE | 2022-03-12 14:52 | PCPTNOTE ---
Patient did not show up for scheduled appointment this date. Called and had to leave a message.
--- NOTE | 2022-03-16 12:59 | PTOPEVAL ---
PHYSICAL THERAPY DISCHARGE NOTE Thank you for referring Justin Mittal to [facility]. Please review, sign, date and return this plan of care DEEPTHI. I agree with and certify that the following plan of care is medically necessary. Referring Physician Date Attending Provider: Yuko Lockhart NP Diagnosis left knee pain Onset 6months Subjective Information States that his left knee pain Query Text:As Reported By Patient/ is doing better. The knee Family will slip every now and then with more use or being on it more. He had an injection a couple of weeks ago and that seemed to help with the therapy. Knee Range of Motion Left Knee Flexion Range of Motion - Active 127 Knee Extension Range of Motion - Active 0 Query Text: Lower Extremity Muscle Strength Testing Hip Strength Left Hip Flexion Strength 5 Normal Hip Extension Strength 4+ Good + Hip Abduction Strength 4+ Good + Knee Strength Left Knee Flexion Strength 5 Normal Knee Extension Strength 5 Normal Knee Strength Comments good quad set Muscle Length Testing Muscle Length Testing Left Hamstring Length -30 Query Text:(90 - 90 Position) Left Prone Knee Flexor Muscle Length ( 115 degrees) Balance Assessment 5 Time Sit to Stand Time in Seconds 12.54 Gait Assessment 2 Minute Walk Total Distance Walked (feet) 490 2 Minute Walk Gait Speed Score (feet/ 4.08 second) Stair Climbing Assessment Stair Climbing Assessment Stair Climbing Assistive Devices Railings Weight Bearing Status - Left Full Weight Bearing Status - Right Full Maintains Weight Bearing Status Yes Technique Alternating Steps Stair Climbing Direction Both Up and Down Stair Climbing Ability Independent PT Clinical Summary Justin is a 57 yo male presenting to outpatient physical therapy with chronic left knee pain. Justin demonstrates normal ROM and strength to left knee and LE. He demonstrates good quad set and has good understanding of need for quad strength for knee health. He is independent in HEP. Will d/c from PT at this time.
== END 2022-03-17 15:56 | disposition home or self-care (01) ==
LOC: ANHPT 12:30
PROVIDERS: PCP Family Medicine; Visit Provider Nurse Practitioner Family
DX: M17.12 Unilateral primary osteoarthritis, left knee (principal)
CPT/HCPCS: 97110; 97112; 97161

== ENCOUNTER 2022-04-06 08:24 | Outpatient (CLI) | payer MEDICARE, SELFPAY ==
[2022-04-06 08:56] LABS: Anion Gap 1 mmol/L (8-16); Blood Urea Nitrogen 15 mg/dL (9-20); Calcium 8.7 mg/dL (8.4-10.2); Carbon Dioxide 29 mmol/L (22-30); Chloride 102 mmol/L (98-107); Estimated Glomerular Filt Rate > 60; Glucose 148 mg/dL (65-110); Potassium 4.3 mmol/L (3.4-5.0); Sodium 132 mmol/L (137-145)
[2022-04-06 10:05] LABS: Valproic Acid 47.7 ug/mL (50-120)
== END 2022-04-06 08:25 | disposition home or self-care (01) ==
LOC: ANHSURGERY 08:29
PROVIDERS: Anesthesiology; PCP Family Medicine; Visit Provider Orthopaedic Surgery
DX: E11.9 Type 2 diabetes mellitus without complications (principal); G40.909 Epilepsy, unspecified, not intractable, without status epilepticus; Z01.818 Encounter for other preprocedural examination
CPT/HCPCS: 36415; 80048; 80164

== ENCOUNTER 2022-04-09 02:04 | Day surgery (SDC) | payer MEDICARE, SELFPAY ==
[2022-04-02 14:37] VITALS: BMI 36.1
--- NOTE | 2022-04-02 14:44 | PC.NURSE ---
Report to the Outpatient Waiting Room, entrance under the green pavilion located off [facility], at time _0600_ on date _[id number]_. OR Time: _0730_. - You and your visitor will be asked to self-screen and do not enter if you have any COVID symptoms. - Only one visitor and NO children visitors are allowed at this time. - The patient visitor is requested to leave or wait in car when not with patient due to restrictions. - A mask is required within the hospital. Patients may have clear liquids (water, carbonated beverages, clear teas, apple juice) until 3 hours prior to surgery with a maximum of 20 ounces. - No food from midnight until time of surgery Take the following medications with a SIP of water the morning of surgery: __Citalopram, Depakote, Doxepin, Gabepentin, Lamotrigine, Lurasidone, Metoprolol and Risperidone, Flovent and Anoro__ Medications to discontinue per physician None Please no make-up, nail portuguese, hairspray, perfume, deodorant, or body powder the day of surgery. No jewelry (including any body piercings) or valuables the day of surgery, leave them at home. Please take a shower or bath the night before, or the morning of, surgery with an antibacterial soap. Wear comfortable, loose fitting clothing. - Jewelry must be removed prior to entering the operating room. Rings and piercings that are not removed may be cut off. - The hospital will not accept responsibility for valuables. - Please leave all valuables, including medications, at home the day of surgery. If you are going home after surgery, a licensed taxi driver must drive you home. - NO public transportation without another adult. - We recommend that an adult stay with you for 24 hours following discharge. - We also recommend that you do not drive, make important decision, drink alcoholic beverages, or take any drugs that were not prescribed by your health care provider for at least 24 hours after your discharge time. Follow any additional instructions given to you from your surgeon. If you or anyone in your household have experienced Covid symptoms in the past week, please notify your surgeon or the nurse liaison at the phone number below for possible testing. Telephone instructions given to _Patient___and asked if any additional questions and then verbalized understanding. Patient advised to call surgeon office or pre surgery nurse liaison [phone] if any additional questions.
[2022-04-09] VITALS (11 sets, daily range): BP systolic 102–147; BP diastolic 38–80; PULSE 58–74; RESP 12–20; TEMP 36.1–36.6; O2SAT 95–100
[2022-04-09] MEDS: ACETAMINOPHEN 500 MG TABLET 1000 MG PO (06:50)
[2022-04-09] MEDS: LACTATED RINGERS 1,000 ML 30 ML IV CONT ×2 (07:03→10:13)
[2022-04-09] MEDS: KETOROLAC 15 MG/ML VIAL (*BKC) IV PUSH (07:07)
[2022-04-09 07:09] LABS: Glucose Point of Care 103 mg/dl (65-105)
--- NOTE | 2022-04-09 07:17 | WPDANESEPPF ---
Anes - Initial Pre Proc Eval Procedure: Operation Date: 04/09/22 07:30 Proposed Procedures p Arthroscopic Rotator Cuff Repair Right Shoulder, Biceps Tenodesis, Distal Clavicle Excision, Subacromial Decompression - Jareth Burgos MD Date/Time: 04/09/22 07:17 Surgeon: Jareth Burgos MD Pre Op Diagnosis: rt partial roator cuff tear, SLAP tear, AC arthrit Patient Data Age: 57 Gender: M Height: 1.73 m Weight: 107.7 kg Allergies Allergy/AdvReac Type Severity Reaction Status Date / Time No Known Allergies Allergy Unknown N/A Verified 04/09/22 06:22 Home Medications Medication Instructions Recorded Confirmed Type citalopram 20 mg tablet 20 mg PO DAILY 08/30/20 04/09/22 History blood-glucose meter (OneTouch #1 ea 01/08/21 04/03/22 Rx Ultra2 Meter kit) lancets (Accu-Chek Multiclix #100 ea 01/08/21 04/03/22 Rx Lancet) blood sugar diagnostic (OneTouch #100 ea 01/09/21 04/03/22 Rx Ultra Blue Test Strip) sildenafil 100 mg tablet 100 mg PO DAILY PRN sexual 07/28/21 04/03/22 Rx activity #30 tabs lurasidone 80 mg tablet (Latuda) 80 mg PO DAILY 09/09/21 04/03/22 History risperidone 0.5 mg tablet 0.5 mg PO DAILY 09/09/21 04/09/22 History (Risperdal) ibuprofen 800 mg tablet 800 mg PO TID PRN pain #15 tabs 09/23/21 04/09/22 Rx albuterol sulfate 90 mcg/actuation See Rx Instructions .Route 10/20/21 04/03/22 History aerosol inhaler .COMPLEX PRN Shortness Of Breath Or Wheezing doxepin 10 mg capsule 10 mg PO DAILY 10/20/21 04/09/22 History simvastatin 20 mg tablet See Rx Instructions .Route 12/11/21 04/09/22 Rx .COMPLEX #90 tabs albuterol sulfate 2.5 mg/3 mL 2.5 mg (3 mL) inhalation Q4-6H PRN 12/12/21 04/09/22 Rx (0.083 %) solution for nebulization shortness of breath or wheezing #90 mL diclofenac sodium 1 % topical gel 2 g topical QID PRN pain #100 grams 12/12/21 04/03/22 Rx (Voltaren Arthritis Pain) tizanidine 4 mg tablet 4 mg PO TID PRN muscle spasticity 12/15/21 04/03/22 Rx #60 tabs meloxicam 15 mg tablet 15 mg PO DAILY #30 tabs 12/23/21 04/09/22 Rx omeprazole 40 mg capsule,delayed 40 mg PO BID #180 caps 01/05/22 04/09/22 Rx release potassium chloride 20 mEq See Rx Instructions .Route 01/05/22 04/09/22 Rx tablet,extended release .COMPLEX #180 tabs Anoro Ellipta 62.5 mcg-25 1 inh inhalation DAILY #60 ea 01/19/22 04/03/22 Rx mcg/actuation powder for inhalation (umeclidinium-vilanterol) gabapentin 300 mg capsule 300 mg PO TID #90 caps 02/15/22 04/09/22 Rx fluticasone propionate 110 See Rx Instructions .Route 02/20/22 04/03/22 Rx mcg/actuation HFA aerosol inhaler .COMPLEX #12 grams (Flovent HFA) metoprolol tartrate 50 mg tablet See Rx Instructions .Route 03/04/22 04/09/22 Rx .COMPLEX #180 tabs polyethylene glycol 3350 17 17 g PO DAILY #850 grams 03/04/22 04/09/22 Rx gram/dose oral powder (Miralax) hydrocodone 7.5 mg-acetaminophen 1 tablet PO Q8H PRN pain #70 tabs 03/09/22 04/09/22 Rx 325 mg tablet lisinopril 10 mg tablet See Rx Instructions .Route 03/16/22 04/09/22 Rx .COMPLEX #90 tabs aspirin 81 mg tablet,delayed 81 mg PO DAILY 04/02/22 04/09/22 History release divalproex 125 mg tablet,delayed 125 mg PO Q8H 04/02/22 04/03/22 History release (Depakote) lamotrigine 200 mg tablet 150 mg PO DAILY 04/02/22 04/09/22 History (Lamictal) Laboratory Tests 04/09/22 07:05 POC Capillary Glucose 103 mg/dl mg/dl (65-105) Patient hx anesthesia problems: none Family hx anesthesia problems: none Results Review: All pre-operative results and documents have been reviewed as part of the pre-operative evaluation. [facility] Past Medical History Medical History Adenomatous colon polyp BMI 36.0-36.9,adult BMI 37.0-37.9, adult BMI over 35 Bowel obstruction COPD exacerbation Coronary artery disease Dysphagia Elevated triglycerides with high cholesterol Emphysema of lung
--- NOTE | 2022-04-09 07:20 | WPDHPUPDATE1 ---
History and Physical Update Update Date/Time: 04/09/22 07:20 Will also perform subacromial decompression. History and Physical has been reviewed, including an updated exam of the patient. There are NO changes in the patient's condition. Risks, benefits, and alternatives have been discussed and questions answered. Patient agrees to proceed with procedure.
[2022-04-09] MEDS: ceFAZolin 2 GM/D5W 50 ML 2 GM/50 ML BAG IVPB (07:38)
[2022-04-09 10:59] LABS: Glucose Point of Care 157 mg/dl (65-105)
[2022-04-09] MEDS: oxyCODONE HCL (*CRX) 5 MG TAB IR PO (11:49)
[2022-04-09] MEDS: oxyCODONE/ACETAMINOPHEN (*CRX) 5-325 MG TABLET 1 TABLET PO (12:31)
--- NOTE | 2022-04-09 16:46 | W.PM.PROC2 ---
Procedure Note - Detailed Date of Procedure 04/09/22 Pre-op Diagnosis Right shoulder high grade partial rotator cuff tear, SLAP tear, AC arthritis Post-op Diagnosis Same Procedure Performed Right shoulder 1. Arthroscopic rotator cuff repair 2. Arthroscopic subacromial decompression 3. Arthroscopic biceps tenodesis 4. Arthroscopic distal clavicle excsion. Surgeon Jareth Burgos MD Supervisor Fertilizer Lisette Lawrence PA-C Anesthesia General and Regional ( interscalene block) Findings High-grade partial articular sided cuff tear. Completed and repaired. Extensive degenerative SLAP tear treated with biceps tenodesis using the anterior of 2 bone tunnels. Acromioplasty and distal clavicle excision completed. Description of Procedure Preoperative antibiotics were given. An interscalene block was administered in the preoperative area. The patient was bought brought to the operating room. A general anesthetic was administered. The patient was carefully positioned in the beach chair position. The head and neck were carefully positioned. The non operative extremity was also carefully positioned. The shoulder was prepped and draped in the usual sterile fashion. Examination was performed. Standard posterior and anterior arthroscopic portals were established. Inflow achieved with the arthroscopic pump using saline and epinephrine. The glenohumeral joint was carefully inspected. The articular cartilage was healthy. The superior labrum showed extensive degenerative SLAP tear which extended anteriorly. This was debrided and the biceps was released for later tenodesis. The very anterior supraspinatus rotator cuff was torn on the articular side. Very high-grade, greater than 50%. This abutted the area of the biceps tendon. The subscapularis showed only minimal very low-grade changes at the upper border. Attention was turned to the subacromial space. A complete bursectomy was performed. Bursal side rotator cuff was very soft and nearly perforated at the anterior most aspect of the supraspinatus, corresponding to the high-grade articular sided tear in the same area. This was gently debrided and a small rotator cuff complete tear was assessed. The biceps could be seen at the anterior most aspect of the tear. It was elected to create 2 tunnels although the space for them was rather small. The anterior tunnel was used for the biceps tenodesis as well as the rotator interval area and the anterior supraspinatus. The rotator cuff and footprint were lightly debrided. A modest acromioplasty was performed. The bone tunneling technique was utilized. Three sutures were passed through each tunnel. One suture was used for the biceps tenodesis. A rip stop technique was used which converged the tissue very nicely. The sutures were tied arthroscopically. The distal clavicle was excised at this point through a separate portal incision anteriorly. The arthroscopic instruments were removed. The wounds were closed with 3-0 Monocryl subcuticular suture and steri strips. There were no complications. A sling was applied and the patient brought to the recovery room. Physician assistant plant controller, Lisette Lawrence PA-C, required for surgery; including patient positioning, draping, arthroscopic camera operation, maintaining instrument position, suture retrieval, wound closure, and dressing and sling placement. Estimated Blood Loss -20.0 Pathology None sent Complications No immediate complications Condition Stable Disposition PACU [facility] Billing Surgery - Charge Forward: Surgery Billing
== END 2022-04-09 13:17 | disposition home or self-care (01) ==
PROVIDERS: PCP Family Medicine; Visit Provider Orthopaedic Surgery
PROC: (CPT 29805; principal; 2022-04-09 07:30)
DX: M75.111 Incomplete rotator cuff tear or rupture of right shoulder, not specified as traumatic (principal); M75.81 Other shoulder lesions, right shoulder; M19.011 Primary osteoarthritis, right shoulder; J43.9 Emphysema, unspecified; E78.5 Hyperlipidemia, unspecified; I10 Essential (primary) hypertension; G40.909 Epilepsy, unspecified, not intractable, without status epilepticus; I25.10 Atherosclerotic heart disease of native coronary artery without angina pectoris; Z79.51 Long term (current) use of inhaled steroids; Z90.49 Acquired absence of other specified parts of digestive tract; Z87.891 Personal history of nicotine dependence; F12.90 Cannabis use, unspecified, uncomplicated; E66.9 Obesity, unspecified; Z68.35 Body mass index [BMI] 35.0-35.9, adult; Z79.82 Long term (current) use of aspirin
CPT/HCPCS: 29827; 29828; 29826; 29824; 36415; 80048; 80164; 82948; A9270; J0330; J0690; J1100; J1885; J2250; J2405; J2704; J3370; J7120

== ENCOUNTER 2022-07-23 09:29 | Outpatient (CLI) | payer MEDICARE, SELFPAY ==
--- NOTE | ~2022-07-23 | NM_ITS ---
EXAMINATION: NM ellie stress w perfusion DATE: 07/23/2022 11:25 INDICATION: Cardiac clearance. Abnormal labs. TECHNIQUE: Rest images were obtained following intravenous administration of 8.7 mCi Tc99m tetrofosmi n (Myoview). The patient was infused intravenously with Lexiscan (Regadenoson). Then, 28.8 mCi Tc99m tetrofosmin (Myoview) was administered intravenously, and stress images were obtained. Data was recon structed into short axis and horizontal and vertical long axis SPECT images. Gated SPECT images were also obtained. COMPARISON: None. FINDINGS: There is no definite reversible or fixed perfusion abnormality to suggest ischemia or infar ction. There is normal left ventricular chamber size, wall motion and ejection fraction. Left ventr icular ejection fraction measures >70%. IMPRESSION: 1. Normal myocardial perfusion at rest and during stress. 2. Left ventricular ejection fraction measuring >70%. Reviewed, dictated and finalized at location A. TUNER
--- NOTE | 2022-07-23 09:56 | EST_ITS ---
Patient Info Name: Justin Mittal Age: 57 years : 1965 Gender: Male Ht: 68 in Wt: 230 lbs BSA: 2.28 m2 HR: 61 bpm BP: 195 / 74 mmHg Heart Rhythm: Sinus Rhythm Exam Date: 07/23/2022 10:37 AM Exam Location: [facility] Stress Patient Status: Outpatient Admit Date: 07/23/2022 Staff Ordering Physician: Deacon King DO Attending Provider: Deacon King DO Exercise Technologist: Anisa Worley CT Exercise Physician: Deacon King DO Exam Type: CA stress ellie w NM Study Info Indications I10 - Essential (primary) hypertension Z01.810 - Encounter for preprocedural cardiovascular examination A regadenoson stress test was performed. Summary 1. 1. Negative lexiscan stress test for ischemic ST changes by ECG criteria. 2. 2. Baseline hypertension with hypertensive response to lexiscan. 3. 3. Nuclear scan to follow and will be reported separately. Please correlate with it. 4. 4. Patient informed of the above results. Protocol: Lexiscan Stress ECG Details Stage: REST Duration (min): 3 min : 51 sec HR (bpm): 62 SBP (mmHg): 177 DBP (mmHg): 95 Stage: REST Duration (min): 10 min : 37 sec HR (bpm): 65 SBP (mmHg): 177 DBP (mmHg): 95 Stage: STAGE 1 Duration (min): 0 min : 59 sec HR (bpm): 79 SBP (mmHg): 194 DBP (mmHg): 74 Stage: RECOVERY Duration (min): 1 min : 0 sec HR (bpm): 88 SBP (mmHg): 194 DBP (mmHg): 74 Stage: RECOVERY Duration (min): 2 min : 0 sec HR (bpm): 86 SBP (mmHg): 194 DBP (mmHg): 74 Stage: RECOVERY Duration (min): 3 min : 0 sec HR (bpm): 85 SBP (mmHg): 225 DBP (mmHg): 84 Stage: RECOVERY Duration (min): 4 min : 0 sec HR (bpm): 84 SBP (mmHg): 225 DBP (mmHg): 84 Stage: RECOVERY Duration (min): 5 min : 0 sec HR (bpm): 79 SBP (mmHg): 213 DBP (mmHg): 86 Stage: RECOVERY Duration (min): 5 min : 9 sec HR (bpm): 79 SBP (mmHg): 213 DBP (mmHg): 86 Rest HR: 65 bpm Peak HR: 94 bpm Rest Sys BP: 177 mmHg Peak Sys BP: 225 mmHg Max Pred HR: 162 bpm % Max Pred HR: 58 % Target HR: 138 bpm Max RPP: 21,150 bpm*mmHg BP Response: Patient exhibited a hypertensive response with stress Termination Reason: Completed protocol Cardiac Symptoms: Shortness of breath Total Time: 1 min : 0 sec Rest Forrester BP: 95 mmHg Peak Forrester BP: 84 mmHg Total Dose: 0.4 mg Resting ECG Sinus rhythm. Stress ECG No ST changes. Arrhythmias None. Report Signatures
[2022-07-23 11:45] LABS: Basophils Absolute Auto 0.1 K/mm3 (0.0-0.1); Basophils Percent Auto 0.5 % (0.2-1.2); Eosinophils Absolute Auto 0.3 K/mm3 (0-0.3); Eosinophils Percent Auto 2.7 % (0-4.4); Hematocrit 44.5 % (42.0-52.0); Hemoglobin 15.2 g/dL (14.0-18.0); Immature Granulocyte Absolute 0.04 K/mm3 (0.00-0.031); Immature Granulocyte Percent A 0.4 % (0-0.5); Lymphocytes Absolute Auto 3.38 K/mm3 (0.9-3.2); Lymphocytes Percent Auto 33.9 % (18.3-44.2); Mean Corpuscular HGB Conc 34.2 g/dl (32-36); Mean Corpuscular Hemoglobin 30.1 pg (26-34); Mean Corpuscular Volume 88.1 fl (80-100); Mean Platelet Volume 9.1 fl (7.4-10.4); Monocytes Absolute Auto 0.8 K/mm3 (0.1-0.6); Monocytes Percent Auto 7.8 % (2.6-8.5); Neutrophils Absolute Auto 5.5 K/mm3 (1.3-6.7); Neutrophils Percent Auto 54.7 % (45.5-73.1); Platelet Count Result 190 k/mm3 (150-375); Red Blood Count 5.05 M/mm3 (4.6-6.20); Red Cell Distribution Width 14.2 % (11.5-14.5)
[2022-07-23 12:07] LABS: Alanine Aminotransferase 40 U/L (6-50); Albumin Level 4.4 g/dL (3.5-5.1); Alkaline Phosphatase 80 U/L (38-126); Anion Gap 7 mmol/L (8-16); Aspartate Amino Transferase 49 U/L (17-59); Bilirubin,Total 0.6 mg/dL (0.2-1.3); Blood Urea Nitrogen 18 mg/dL (9-20); Calcium 9.2 mg/dL (8.4-10.2); Carbon Dioxide 28 mmol/L (22-30); Chloride 105 mmol/L (98-107); Cholesterol 170 mg/dL (0-200); Estimated Glomerular Filt Rate > 60; Glucose 145 mg/dL (65-110); HDL Direct 24 mg/dL; Potassium 4.6 mmol/L (3.4-5.0); Sodium 140 mmol/L (137-145); Triglycerides 210 mg/dL (<150)
[2022-07-23 12:18] LABS: LDL Cholesterol Direct 98 mg/dL
[2022-07-23 12:38] LABS: Prostate Specific Antigen 0.8 ng/mL (< OR = 4.0)
[2022-07-23 13:01] LABS: Creatinine Urine 193.9 mg/dL
[2022-07-23 13:06] LABS: MALB Creatinine Ratio 9.2 mg/g (0-30); Microalbumin Urine Random 17.8 mg/L (0-16.7)
[2022-07-23 13:11] LABS: Hemoglobin A1C 6.5 % (<5.7)
== END 2022-07-23 09:30 | disposition home or self-care (01) ==
PROVIDERS: PCP Family Medicine; Visit Provider Internal Medicine Cardiovascular Disease
DX: I10 Essential (primary) hypertension (principal); E11.9 Type 2 diabetes mellitus without complications; D72.829 Elevated white blood cell count, unspecified; E78.2 Mixed hyperlipidemia; Z13.220 Encounter for screening for lipoid disorders; Z12.5 Encounter for screening for malignant neoplasm of prostate; I25.118 Atherosclerotic heart disease of native coronary artery with other forms of angina pectoris
CPT/HCPCS: 36415; 78452; 80048; 80061; 80076; 82043; 83036; 84153; 84443; 85025; 93017; A9502; G0103; J2785

== ENCOUNTER 2022-08-05 12:30 | Outpatient (RCR) | payer MEDICARE, SELFPAY ==
[2022-06-04 13:40] VITALS: BP_SYST 150
--- NOTE | 2022-06-04 14:25 | PTOPEVAL1 ---
Assessment and note entered by Rosa Haas, PT Evaluation Information Assessment Status Evaluation Diagnosis s/p R rotator cuff surgery--bicep tendon,SAD Onset 04-10-22 Subjective Information no longer using sling, moving shoulder, using arm more, driving; doing pendulum exercises, move arm forward and to the side; Reported Pain Level Pain Score Self Report Additional Pain Score Comments R shoulder pain range 3-7 /10 in past week; sharp pain, shooting down from top of shoulder to bicep , throbs sometimes; decrease pain with pain meds 2x/day, rest arm, ice; increase pain with using arm; awaken from sleep 2x/night due to shoulder pain Assessment PT Clinical Summary Justin is s/p R shoulder arthroscopy and SAD. He is no longer using the sling and has started doing exercises at home--pendulum and active motions. With the evaluation, he has decreased ROM and strength of R shoulder; elbow, wrist and hand are without pain and good motion. Skilled PT services are indicated for R shoulder to increase strength and ROM, with modalities PRN for pain control and education for home exercise progression. Plan of Care Interventions Electrical Stimulation,Hot Pack/Cold Pack,Manual Therapy,Neuro Re-education,Patient/Caregiver Education,Therapeutic Activities,Therapeutic Exercise PT Services Indicated Yes Treatment Frequency and 2x/wk for 4 weeks Duration These treatments will address the objective and functional deficits as defined above. The patient will be advanced safely and appropriately in order for the patient to progress towards his/her prior level of function. Additional exercises will be introduced and as well as a comprehensive home exercise program upon discharge, if needed, ?to ensure carryover of functional gains achieved in the clinic. This treatment plan has been reviewed and agreement upon by the patient.
--- NOTE | 2022-06-29 12:33 | PCPTNOTE ---
Patient called & cancelled scheduled appointment this date due to not having enough gas in his car to get to treatment.
[2022-06-30 14:30] VITALS: BP_SYST 150
--- NOTE | 2022-06-30 15:08 | PTOPPROG ---
Assessment and note entered by Rosa Haas, PT Evaluation Information Assessment Status Progress Diagnosis s/p R rotator cuff surgery--bicep tendon,SAD Onset 04-10-22 Subjective Information Justin reports: shoulder is a little better, but still having problems with using R arm; PAIN: range of R shoulder 3-7/10; ache in shoulder, anterior shoulder and top of GH joint; increase with activity and lifting up, decrease with TENS, rest and ice; taking oxycodone 2x/day; with sleeping awaken 4-5x/wk when roll onto R side; Assessment PT Clinical Summary Justin has received 7 PT sessions. Compared to the initial evaluation: pain rating is the same; reported improved sleeping tolerance; increased R shoulder active ROM of flexion to 150', abduction 140', IR- reach behind back, palm to above waist; increase strength of R shoulder; The goals were partially met. Continue PT to increase strength and decrease pain with progression of HEP. Plan of Care Interventions Electrical Stimulation,Hot Pack/Cold Pack,Manual Therapy,Neuro Re-education,Patient/Caregiver Education,Therapeutic Activities,Therapeutic Exercise,Ultrasound PT Services Indicated Yes Treatment Frequency and 1x/wk for 5 weeks Duration These treatments will address the objective and functional deficits as defined above. The patient will be advanced safely and appropriately in order for the patient to progress towards his/her prior level of function. Additional exercises will be introduced and as well as a comprehensive home exercise program upon discharge, if needed, ?to ensure carryover of functional gains achieved in the clinic. This treatment plan has been reviewed and agreement upon by the patient.
--- NOTE | 2022-07-21 13:20 | PCPTNOTE ---
Patient called & cancelled scheduled appointment this date due to his being sick, and waiting on his test results.
--- NOTE | 2022-08-05 13:11 | PTOPDC ---
Assessment and note entered by Rosa Haas, PT Evaluation Information Assessment Status Discharge Diagnosis s/p R rotator cuff surgery--bicep tendon,SAD Onset 04-10-22 Subjective Information Justin reports: shoulder is better; able to sleep through the night, try to sleep on back or L side; still have problems reaching into back seat of car to get something; doing the exercises at home pain range of 2-5/10; anterior and lateral GH joint; tight and sore; increase with activity; decrease with stretching/rolling shoulder, rest, rarely take tylenol or hydrocodone; has a TENS unit at home; reinforced PRN use of TENS Reported Pain Level Pain Score Self Report 2-5/10 R shoulder Assessment PT Clinical Summary Justin has received 11 PT sessions, s/p R shoulder surgery. Compared to the last reevaluation he has improved with pain range of 3-7/10 to 2-5/10; does not report pain increase with active R shoulder motions; increase strength of R shoulder and ROM of flexion and abduction motions--WNL R shoulder, except IR- reach behind back, palm to above waist. The goals were achieved, except shoulder IR ROM. Discharge PT services, he is to continue with his HEP. Plan of Care PT Services Indicated No
== END 2022-08-05 16:45 | disposition home or self-care (01) ==
LOC: ANHPT 12:30
PROVIDERS: PCP Family Medicine; Visit Provider Orthopaedic Surgery
DX: Z48.89 Encounter for other specified surgical aftercare (principal)
CPT/HCPCS: 97014; 97110; 97140; 97161; 97530; G0283

== ENCOUNTER 2022-08-05 13:02 | Outpatient (CLI) | payer MEDICARE, SELFPAY ==
[2022-08-05 16:34] LABS: Hematocrit 43.3 % (42.0-52.0); Hemoglobin 14.2 g/dL (14.0-18.0)
[2022-08-05 16:45] LABS: Hemoglobin A1C 6.3 % (<5.7)
[2022-08-05 16:48] LABS: Albumin Level 4.2 g/dL (3.5-5.1); Estimated Glomerular Filt Rate > 60; Glucose 94 mg/dL (65-110)
[2022-08-05 17:01] LABS: Urine Cotinine NEGATIVE
== END 2022-08-05 13:03 | disposition home or self-care (01) ==
LOC: ANHWCLAB 13:03
PROVIDERS: PCP Family Medicine; Visit Provider Orthopaedic Surgery
DX: M17.12 Unilateral primary osteoarthritis, left knee (principal); Z79.899 Other long term (current) drug therapy; E11.9 Type 2 diabetes mellitus without complications; E78.5 Hyperlipidemia, unspecified
CPT/HCPCS: 80307; 82040; 82565; 82947; 83036; 85014; 85018

== ENCOUNTER 2022-08-07 14:39 | Outpatient (CLI) | payer MEDICARE, SELFPAY ==
--- NOTE | ~2022-08-07 | CT_ITS ---
EXAMINATION: CT LE LT wo con DATE: 08/07/2022 15:00 INDICATION: Left knee osteoarthritis for preoperative planning TECHNIQUE: High resolution computed tomography (CT) of the left lower extremity from the hip through the ankle was performed without intravenous contrast. Additional sagittal and coronal reconstructions were performed. Automated exposure control and iterative reconstruction technique were employed. The dose-length product was 1850.42 mGy-cm. COMPARISON: Right breast dated 07/10/2022 FINDINGS: Alignment is normal. No fracture. Tricompartmental osteoarthritis at the left knee with severe joint space narrowing in the medial compartment on the prior weightbearing imaging, which only appears mode rate on the current nonweightbearing imaging. Subarticular cystlike changes along the medial tibial p lateau and anterior weightbearing medial femoral condyle consistent with overlying high-grade chondro malacia. Joint spaces and the lateral and patellofemoral compartments appear relatively preserved on nonweightbearing imaging but with small marginal osteophytes. Likely reactive small to moderate-sized left knee joint effusion. Soft tissues are otherwise unremarkable. Additional osteoarthritis, mild a t the left hip and moderate at the bilateral sacroiliac joints. Additional mild subarticular cystlike changes at the mid cuneiform likely related to additional osteoarthritis and chondromalacia, unclear whether related to the talonavicular joint with the articulation with the lateral cuneiform. IMPRESSION: 1. Severe medial compartment predominant tricompartmental osteoarthritis at left knee with small to m oderate knee joint effusion. Reviewed, dictated and finalized at location A. CULTURAL APPRAISER IMPRESSION: 1. Severe medial compartment predominant tricompartmental osteoarthritis at lef t knee with small to moderate knee joint effusion.
== END 2022-08-07 14:40 | disposition home or self-care (01) ==
PROVIDERS: PCP Family Medicine; Visit Provider Orthopaedic Surgery
DX: M17.12 Unilateral primary osteoarthritis, left knee (principal); M25.462 Effusion, left knee
CPT/HCPCS: 73700

== ENCOUNTER 2022-08-26 14:40 | Inpatient (IN) | payer MEDICARE, SELFPAY ==
[2022-08-26] VITALS (7 sets, daily range): BP systolic 165–195; BP diastolic 84–102; PULSE 68–75; RESP 11–20; TEMP 36.6–37.6; O2SAT 97–100; BMI 35.6
--- NOTE | ~2022-08-26 | XR_ITS ---
EXAMINATION: XR sm bowel follow through DATE: 08/27/2022 13:12 INDICATION: Small bowel obstruction TECHNIQUE: Water-soluble contrast was administered through the indwelling nasogastric tube. Sequentia l radiographs of the abdomen were obtained until contrast was noted in the colon. Spot fluoroscopic i mages of the small bowel were obtained. Fluoroscopy exposure time was 1.4 minutes. The DAP for this p rocedure was 225.034 Gycm2. COMPARISON: CT from yesterday FINDINGS: There is a gastric tube is in the stomach. Transit time from the stomach to proximal colon was approximately 1.5 hours. There is normal caliber and mucosal fold pattern throughout the small cristina wel. Terminal ileum is normal. No tethering or abnormal mass effect observed upon the small bowel wit h real-time fluoroscopy. IMPRESSION: 1. Unremarkable small bowel follow-through. Reviewed, dictated and finalized at location A. ALL STRIPPER HELPER
--- NOTE | ~2022-08-26 | CT_ITS ---
EXAMINATION: CT abdomen pelvis w con DATE: 08/26/2022 16:27 INDICATION: Abdominal pain. TECHNIQUE: Computed tomography (CT) of the abdomen and pelvis was performed with 100 mL Omnipaque 350 intravenous contrast. Automated exposure control and iterative reconstruction technique were employe d. The dose-length product was 1167.05 mGy-cm. COMPARISON: CT abdomen and pelvis 10/20/2021 FINDINGS: The visualized portions of the lung bases demonstrate mild emphysema. There is mild atelect asis bilaterally. No pleural effusion. The heart size is normal. No pericardial effusion. The liver, gallbladder, spleen, pancreas, adrenal glands, and right kidney are normal. There is a 5 mm cyst in l eft kidney. The prostate is moderately enlarged. There is an anastomosis in the sigmoid colon. The ap pendix is normal. There are dilated loops of small bowel with transition point in the anterior abdome n. There are no pathologically enlarged lymph nodes. There is no free intraperitoneal fluid. There is mild thoracolumbar spondylosis. IMPRESSION: 1. Small bowel obstruction with transition point in the anterior abdomen. Reviewed, dictated and finalized at location A. ANOMETER ASSEMBLER
--- NOTE | ~2022-08-26 | XR_ITS ---
Clinical Indication: Fever PA and lateral views of the chest: Comparison: 04/29/2021 Findings: The lungs are clear, without evidence of focal consolidation or pleural effusion. Cardiome diastinal silhouette is within normal limits. Bones and soft tissues are unremarkable. Impression: Normal chest. Reviewed, dictated and finalized at [facility]. ER PRINTER Impression: Normal chest.
--- NOTE | ~2022-08-26 | XR_ITS ---
Supine and upright views of the abdomen Clinical history: Small bowel obstruction Findings: Bowel gas pattern is nonspecific. NG tube in place. No evidence for obstruction or free air . No abnormal mass lesion or calcification is seen. Osseous structures are intact. Impression: NG tube in place. Nonspecific bowel gas pattern. Reviewed, dictated and finalized at [facility]. TENANCE AND OPERATIONS SUPERVISOR Impression: NG tube in place. Nonspecific bowel gas pattern.
--- NOTE | ~2022-08-26 | XR_ITS ---
EXAMINATION: XR abdomen NG/feed tube insert DATE: 08/26/2022 18:52 INDICATION: Nasogastric tube placement. TECHNIQUE: An upright view of the abdomen was obtained. COMPARISON: Abdomen radiographs 11/24/2021 FINDINGS: The lower abdomen is excluded. The nasogastric tube tip is in the stomach. IMPRESSION: 1. Nasogastric tube tip in the stomach. Reviewed, dictated and finalized at location A. OR STORES AND AGENCIES SUPERVISOR
[2022-08-26 15:03] LABS: Basophils Percent Auto 0.3 % (0.2-1.2); Eosinophils Absolute Auto 0.2 K/mm3 (0-0.3); Eosinophils Percent Auto 2.2 % (0-4.4); Hematocrit 44.1 % (42.0-52.0); Hemoglobin 14.6 g/dL (14.0-18.0); Immature Granulocyte Absolute 0.04 K/mm3 (0.00-0.031); Immature Granulocyte Percent A 0.4 % (0-0.5); Lymphocytes Absolute Auto 3.04 K/mm3 (0.9-3.2); Lymphocytes Percent Auto 30.4 % (18.3-44.2); Mean Corpuscular HGB Conc 33.1 g/dl (32-36); Mean Corpuscular Hemoglobin 29.6 pg (26-34); Mean Corpuscular Volume 89.3 fl (80-100); Mean Platelet Volume 9.9 fl (7.4-10.4); Monocytes Percent Auto 9.9 % (2.6-8.5); Neutrophils Absolute Auto 5.7 K/mm3 (1.3-6.7); Neutrophils Percent Auto 56.8 % (45.5-73.1); Platelet Count Result 188 k/mm3 (150-375); Red Blood Count 4.94 M/mm3 (4.6-6.20); Red Cell Distribution Width 14.9 % (11.5-14.5)
--- NOTE | 2022-08-26 15:48 | ED.ABDPAIN ---
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 History of hypertension hyperlipidemia COPD, on aspirin, does not smoke or drink, uses marijuana daily, history of colon resection secondary to diverticulitis years ago. Related Data Home Medications Medication Instructions Recorded Confirmed citalopram 20 mg tablet 20 mg PO DAILY 08/30/20 08/25/22 lurasidone 80 mg tablet (Latuda) 80 mg PO DAILY 09/09/21 08/25/22 doxepin 10 mg capsule 10 mg PO DAILY 10/20/21 08/25/22 aspirin 81 mg tablet,delayed 81 mg PO DAILY 04/02/22 08/25/22 release divalproex 125 mg tablet,delayed 125 mg PO Q8H 04/02/22 08/25/22 release (Depakote) lamotrigine 200 mg tablet 150 mg PO DAILY 04/02/22 08/25/22 (Lamictal) acetaminophen 500 mg tablet 500 mg PO Q6H 08/11/22 08/25/22 Allergies Allergy/AdvReac Type Severity Reaction Status Date / Time No Known Allergies Allergy Unknown N/A Verified 08/26/22 14:43 Review of Systems Review of Systems: All systems reviewed & are unremarkable except as noted in HPI and below PMFSH Past Medical History Medical History (Updated 08/26/22 @ 18:17 by Dale Carr MD) Adenomatous colon polyp BMI 36.0-36.9,adult BMI 37.0-37.9, adult BMI over 35 Bowel obstruction COPD exacerbation Coronary artery disease Dysphagia Elevated triglycerides with high cholesterol Emphysema of lung Hyperlipidemia Hypertension Impingement syndrome of right shoulder MDD (major depressive disorder) Opacity of lung on imaging study Seizure Tear of medial meniscus of left knee Surgical History Surgical History (Updated 08/26/22 @ 18:17 by Julia Lovelace NP) History of arthroplasty of right shoulder History of colon resection History of foot surgery History of hernia repair History of surgery on wrist Family History Family History Father Hypertension Family history of throat cancer Acute myocardial infarction Family history of malignant neoplasm of kidney History of kidney cancer Mother Family history of Alzheimer's disease Family history of diabetes mellitus in first degree relative Diabetes mellitus Sibling No problems noted. Other Cerebrovascular accident Family history of alcoholism Family history of cardiovascular disease Family history of coronary artery disease Family history of malignant neoplasm Family history of mental disorder Social History Social History Smoking packs per day: 1 Smoking cigarettes per day: 20.0 Years smoked: 30 Smoking pack-years: 30.00 Smoking status: Former smoker Tobacco type: cigarettes Second hand tobacco smoke exposure: No Smoking end date: 04/02/06 Alcohol intake: former Substance use: current Substance use type: marijuana Other substance usage details: medical canibus Lack of Transportation: No Lack of Food: Never True Current Housing: I Have Housing Concerned About Future Housing: No Difficulty Paying Gas/Electric Bills: YES Difficulty Paying for Meds: YES Currently Unemployed: YES Education: High School Diploma/GED Difficulty w/ Childcare or Family Care: No Additional occupation/education comments: [employer]. Gender identity (if verbalized by the patient): 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ns: No Exam Narrative: General appearance: Well-developed, well-nourished Skin: Normal color Head: Normocephalic, nontraumatic Eyes: Clear conjunctiva ENT: Oropharynx
[2022-08-26 16:05] LABS: Appearance Urine Clear (Clear); Bilirubin Urine Negative (Negative); Blood Urine Negative (Negative); Color Urine Yellow (Yellow); Glucose Urine UA Negative (Negative); Ketones Urine Negative (Negative); Leukocyte Esterase Ur Negative LEU/UL (Negative); Nitrate Urine Negative (Negative); Protein Urine Negative (Negative)
[2022-08-26 16:09] LABS: Add Urine Microscopic? NO
[2022-08-26 16:13] LABS: Alanine Aminotransferase 30 U/L (6-50); Albumin Level 4.3 g/dL (3.5-5.1); Alkaline Phosphatase 59 U/L (38-126); Anion Gap 4 mmol/L (8-16); Aspartate Amino Transferase 36 U/L (17-59); Bilirubin,Total 0.7 mg/dL (0.2-1.3); Blood Urea Nitrogen 12 mg/dL (9-20); Calcium 9.2 mg/dL (8.4-10.2); Carbon Dioxide 30 mmol/L (22-30); Chloride 102 mmol/L (98-107); Estimated CRCL calculation 94 ml/min; Estimated Glomerular Filt Rate > 60; Glucose 96 mg/dL (65-110); Lipase 81 U/L (23-300); Potassium 4.7 mmol/L (3.4-5.0); Sodium 136 mmol/L (137-145)
[2022-08-26] MEDS: SODIUM CHLORIDE 0.9% IV 1,000 ML 999 ML IV CONT (16:57)
--- NOTE | 2022-08-26 18:15 | PM.IMHP ---
H&P: HPI History of Present Illness Date/Time: 08/26/22 18:15 Chief Complaint: Abdominal pain Narrative: This is a 57-year-old male patient who has had at least 2-3 previous small-bowel obstructions. The patient came to the emergency room for abdominal pain that started this morning. The patient stated that he did have a normal bowel movement this morning. Patient stated that his pain was worse with standing and moving. Nothing makes him feel better. He denies any fever chills. No nausea vomiting diarrhea or constipation. The patient does use marijuana daily. He does have a history of colon resection secondary to diverticulitis many years ago. Abdominal pelvis CT was read as small bowel obstruction with transition point at the anterior abdomen. An NG tube was placed in the NG tube is in the stomach. The patient is being admitted to inpatient status on the date of service of 08/26/2022. Review of Systems Review of Systems: See HPI PMFSH Past Medical History Medical History Adenomatous colon polyp BMI 36.0-36.9,adult BMI 37.0-37.9, adult BMI over 35 Bowel obstruction COPD exacerbation Coronary artery disease Dysphagia Elevated triglycerides with high cholesterol Emphysema of lung Hyperlipidemia Hypertension Impingement syndrome of right shoulder MDD (major depressive disorder) Opacity of lung on imaging study Seizure Tear of medial meniscus of left knee Surgical History Surgical History History of arthroplasty of right shoulder History of colon resection History of foot surgery History of hernia repair History of surgery on wrist Family History Family History Father Hypertension Family history of throat cancer Acute myocardial infarction Family history of malignant neoplasm of kidney History of kidney cancer Mother Family history of Alzheimer's disease Family history of diabetes mellitus in first degree relative Diabetes mellitus Sibling No problems noted. Other Cerebrovascular accident Family history of alcoholism Family history of cardiovascular disease Family history of coronary artery disease Family history of malignant neoplasm Family history of mental disorder Social History Social History (Updated 08/27/22 @ 00:22 by Julia Lovelace NP) Social History: The patient had 5 children but 1 child . He is and lives with his . He is disabled. He uses medical marijuana. Code status full code Smoking packs per day: 1 Smoking cigarettes per day: 20.0 Years smoked: 30 Smoking pack-years: 30.00 Smoking status: Former smoker Tobacco type: cigarettes Second hand tobacco smoke exposure: No Smoking end date: 04/02/06 Alcohol intake: never Substance use: current Substance use type: marijuana Other substance usage details: medical canibus Lack of Transportation: No Lack of Food: Sometimes True Current Housing: I Have Housing Concerned About Future Housing: No Difficulty Paying Gas/Electric Bills: YES Difficulty Paying for Meds: YES Currently Unemployed: No Education: High School Diploma/GED Difficulty w/ Childcare or Family Care: No Additional occupation/education comments: [employer]. Gender identity (if verbalized by the patient): 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ns: No Meds Home Medications and Allergies Home Medications Medication Instructions Recorded Confirmed Type citalopram 20 mg tablet 20 mg PO .NOON 08/30/20 08/26/22 History blood-glucose meter (AlertaPhoneuch #1 ea 01/08/21 08/26/22 Rx Ultra2 Meter kit) lurasidone 80 mg tablet (Latuda) 80 mg PO .NOON 09/09/21 08/26/22 History doxepin 10 mg capsule 10 mg PO TID 10/20/21 08/26/22 History albuterol sulfate 2.5 mg/3 mL 2.5 mg (3 mL) inhalation Q4-6H PRN 12/12/21 08/26/22 Rx
[2022-08-26] MEDS: HYDROmorphone HCL INJ (*CRX) 1 MG/ML SYR 0.5 MG IV PUSH ×2 (18:19→23:12)
[2022-08-26] MEDS: ONDANSETRON INJ 4 MG/2 ML VIAL IV PUSH (18:19)
[2022-08-26 18:33] LABS: Influenza A QL RT-PCR Negative (Negative); Influenza B QL RT-PCR Negative (Negative); SARS-CoV-2 RNA PCR Negative
[2022-08-26] MEDS: SODIUM CHLORIDE 0.9% IV 1,000 ML 150 ML IV CONT (19:39)
--- NOTE | 2022-08-26 20:08 | ADMGEN ---
This patient, Justin Mittal, was admitted to 2 Medical Room 241-. Patient/family oriented to hospital policies and general routines including ID bracelet, bed and alarms, visiting hours, pain management, procedures, bathroom and other care routines, personal items, smoking policy, room service/diet, and visiting hours. Information on how to activate the Rapid Response Team has been discussed. Patient/Family are encouraged to report perceived risks to care and to ask questions if they do not understand what they are told or what they should do.
[2022-08-27] VITALS (10 sets, daily range): BP systolic 168–200; BP diastolic 71–93; PULSE 66–89; RESP 12–20; TEMP 36.7–39.2; O2SAT 97–99
[2022-08-27] MEDS: ONDANSETRON INJ 4 MG/2 ML VIAL IV PUSH ×3 (01:33→14:36)
[2022-08-27] MEDS: SODIUM CHLORIDE 0.9% IV 1,000 ML 150 ML IV CONT ×2 (02:09→07:59)
[2022-08-27 04:58] LABS: Basophils Absolute Auto 0.1 K/mm3 (0.0-0.1); Basophils Percent Auto 0.4 % (0.2-1.2); Eosinophils Absolute Auto 0.2 K/mm3 (0-0.3); Eosinophils Percent Auto 1.7 % (0-4.4); Hemoglobin 15.5 g/dL (14.0-18.0); Immature Granulocyte Absolute 0.08 K/mm3 (0.00-0.031); Immature Granulocyte Percent A 0.6 % (0-0.5); Lymphocytes Percent Auto 16.9 % (18.3-44.2); Mean Corpuscular HGB Conc 34.4 g/dl (32-36); Mean Corpuscular Volume 87.2 fl (80-100); Monocytes Percent Auto 7.7 % (2.6-8.5); Neutrophils Percent Auto 72.7 % (45.5-73.1); Platelet Count Result 186 k/mm3 (150-375); Red Blood Count 5.16 M/mm3 (4.6-6.20); Red Cell Distribution Width 14.6 % (11.5-14.5); White Blood Count 12.4 K/mm3 (4.5-10.0)
[2022-08-27 05:19] LABS: Alanine Aminotransferase 29 U/L (6-50); Albumin Level 4.5 g/dL (3.5-5.1); Alkaline Phosphatase 82 U/L (38-126); Anion Gap 9 mmol/L (8-16); Aspartate Amino Transferase 30 U/L (17-59); Bilirubin,Total 0.9 mg/dL (0.2-1.3); Blood Urea Nitrogen 11 mg/dL (9-20); Calcium 8.7 mg/dL (8.4-10.2); Carbon Dioxide 25 mmol/L (22-30); Chloride 104 mmol/L (98-107); Estimated CRCL calculation 93 ml/min; Estimated Glomerular Filt Rate > 60; Glucose 171 mg/dL (65-110); Magnesium 1.7 mg/dL (1.6-2.3); Sodium 138 mmol/L (137-145)
[2022-08-27] MEDS: PANTOPRAZOLE SODIUM IV 40 MG VIAL IV PUSH ×2 (07:59→20:24)
[2022-08-27] MEDS: UMECLIDINIUM/VILANTEROL 62.5-25 MCG ELLIPTA 1 PUFF INHALATION (09:19)
[2022-08-27] MEDS: FLUTICASONE PROP 110 MCG INHALER 12 GM (*SP) 1 PUFF INHALATION ×2 (09:20→21:03)
[2022-08-27] MEDS: MAGNESIUM SULF 2 GM/WATER 50ML 2 GM/50 ML BAG IVPB (10:03)
--- NOTE | 2022-08-27 10:32 | PM.CNGS ---
Assessment and Plan Assessment and plan (1) Small bowel obstruction: Code(s): K56.609 - Unspecified intestinal obstruction, unspecified as to partial versus complete obstruction Status: Acute Assessment and Plan: CT reviewed and showed evidence of a small bowel obstruction. He has had two previous small bowel obstructions that resolved with conservative treatment early last year. He has an extensive surgical history and this may likely be related to intra-abdominal adhesions. We would recommend to continue with conservative treatment for now with NG tube decompression, IV fluids, NPO, and analgesics as needed. His obstructive series this morning shows a normal bowel gas pattern and he has already showed improvement following NG tube placement. Will order a water soluble small bowel series to further evaluate the small bowel obstruction. Further plan depending on these results. Thank you for allowing us to see the patient in consultation and we will continue to follow along with you. (2) Type 2 diabetes mellitus: Qualifiers: Diabetes mellitus machine long goods helper insulin use: without machine long goods helper use Diabetes mellitus complication status: without complication Qualified Code(s): E11.9 - Type 2 diabetes mellitus without complications Code(s): E11.9 - Type 2 diabetes mellitus without complications Status: Acute (3) SHOBHA (obstructive sleep apnea): Code(s): G47.33 - Obstructive sleep apnea (adult) (pediatric) Status: Acute (4) Essential (primary) hypertension: Code(s): I10 - Essential (primary) hypertension Status: Acute (5) Bipolar disorder: Code(s): F31.9 - Bipolar disorder, unspecified Status: Acute (6) Emphysema of lung: Qualifiers: Emphysema type: unspecified Qualified Code(s): J43.9 - Emphysema, unspecified Code(s): J43.9 - Emphysema, unspecified Status: Acute (7) Obesity (BMI 30-39.9): Code(s): E66.9 - Obesity, unspecified Status: Acute Plan I have discussed the patient's case and plan of care with Dr. Reeves. History of Present Illness Consult details Consult date: 08/27/22 Reason for consult: other (Small bowel obstruction) Requesting physician: Dale Carr MD Narrative: This is a 57-year-old man who has an extensive history of abdominal surgery, who presented to the ER yesterday with complaints of generalized abdominal pain. He has a history of two previous small bowel obstructions in early 2021 that resolved with conservative management. [facility] the second was [facility] here at [facility]. He denies having any issues since his last hospitalization here in October of 2021. His abdominal pain started early yesterday morning and persisted throughout the day. He reports having a BM after his pain started that was normal for him and he felt his pain did improve for a short period of time, but returned more severe. He developed nausea and had multiple episodes of vomiting. His abdominal pain felt similar to previous episodes of a small bowel obstruction in the past, therefore he came into the ER for evaluation. CT scan of the abdomen pelvis showed a small bowel obstruction with transition point in the anterior abdomen. The patient was admitted to the Hospitalist service and an NG tube has been placed. He is NPO with IV fluids. He has received IV Tylenol and Dilaudid for his abdominal pain. He had an obstructive series this morning that showed a nonspecific bowel gas pattern. Our service has been consulted for surgical evaluation of the small bowel obstruction. He is seen on the medical floor. He reports overall feeling better with improvement in his abdominal pain since the NG was placed. He is passing flatus this morning. No other complaints at this time. He has a remote history of a colon resection for diverticulitis and subsequently developed an incisional hernia. This was repaired initially by the same
[2022-08-27] MEDS: hydrALAZINE HCL 20 MG/ML VIAL 10 MG IV PUSH (13:47)
--- NOTE | 2022-08-27 15:00 | PC.NURSE ---
Brianna L[address] notified of BP 186/71 after prn hydralazine given.
--- NOTE | 2022-08-27 15:36 | PM.IMPN ---
Progress Note: A&P Assessment and Plan (1) Small bowel obstruction: Code(s): K56.609 - Unspecified intestinal obstruction, unspecified as to partial versus complete obstruction Status: Acute Assessment and Plan: patient presented with abdominal pain. initial abdominal. CT reviewed which shows small-bowel obstruction with transition point in anterior abdomen. Appreciate general surgery consultation, I have discussed the case with General surgery. Patient does have a history of to prior small-bowel obstructions which both resolved with conservative management. [place] to be due to adhesions several prior abdominal surgeries. KUB this morning showed normal gas pattern. Completed water-soluble small-bowel series this afternoon with results not yet available. Continue with NG decompression and NPO diet. Continue IV fluids while NPO. Analgesics available as needed. (2) Essential (primary) hypertension: Code(s): I10 - Essential (primary) hypertension Status: Acute Assessment and Plan: Blood pressures have been poorly controlled in the 180s -190s systolic. May be related to pain. Patient has missed his oral antihypertensive swelling p.o. which is also contributing to poor BP control. Patient did receive a dose of hydralazine this afternoon was slight improvement. Decrease the rate on his IV fluids. Continue IV hydralazine p.r.n. for systolic BP >170. resume p.o. antihypertensives as soon as possible when okayed with General surgery. monitor blood pressure trends (3) Hypomagnesemia: Code(s): E83.42 - Hypomagnesemia Status: Acute Assessment and Plan: Mag 1.7 today. Mr. 2 g of IV magnesium sulfate. repeat labs tomorrow morning (4) Emphysema of lung: Qualifiers: Emphysema type: unspecified Qualified Code(s): J43.9 - Emphysema, unspecified Code(s): J43.9 - Emphysema, unspecified Status: Acute Assessment and Plan: no acute exacerbation. Continue home inhalers Subjective Date/time seen: 08/27/22 15:36 Interval history: date of service: 08/27/2022 Justin Mittal is a 57-year-old male with a history of CAD, COPD, hypertension, depression, seizure disorder, and several prior bowel obstructions who is seen in follow-up for SBO. Patient states that he is feeling a little bit better today. His abdominal swelling has improved. He is passing flatus. He had loose stools today following a small-bowel follow-through. He has no abdominal pain. Denies fever or chills. Reports NG tube is uncomfortable but he is tolerating. Denies shortness of breath, cough, chest pain. No urinary symptoms. He has no additional concerns. Review of Systems Review of Systems: All systems reviewed & are unremarkable except as noted in HPI and below Exam Narrative: General: Well-nourished, well-appearing 57-year-old male, sitting up in bed, comfortable, NARD Neuro: awake, alert and oriented x4, speech clear, no focal neuro deficits noted HEENMT: normocephalic, atraumatic, EOMI, sclerae anicteric Respiratory: clear to auscultation bilaterally, nonlabored breathing Cardio: regular rate, regular rhythm with S1-S2 Abdomen: distended, hypoactive bowel sounds, soft, minimally tender to palpation Extremities: no edema, erythema, or tenderness to palpation, DP pulses 2+ bilaterally Skin: no rashes or lesions, warm and dry Psych: appropriate mood and affect, judgment and insight intact Objective Data Vital Signs Vital Signs: Vital Signs - 24 hr 08/26/22 16:01 08/26/22 16:45 08/26/22 18:01 Temperature Pulse Rate 68 73 75 Respiratory Rate 13 11 L 11 L Blood Pressure 179/88 H 180/87 H 184/102 H Pulse Oximetry 100 100 100 Oxygen Delivery 08/26/22 18:30 08/26/22 19:50 08/26/22 21:02 Temperature 99.6 F Pulse Rate 74 73 75 Respiratory Rate 16 20 20 Blood Pressure 167/84 H 195/95 H 171/91 H Pulse Oximetry 100 98 100 Oxygen Deliver
--- NOTE | 2022-08-27 15:44 | PC.NURSE ---
On 08/27/22, the student, [Angely Banda], provided care and completed [facility] documentation on this patient. I have reviewed the student's documentation and agree with the findings.
[2022-08-27] MEDS: SODIUM CHLORIDE 0.9% IV 1,000 ML 100 ML IV CONT (16:15)
[2022-08-27] MEDS: LORazepam INJ (*CRX) 2 MG/ML VIAL 0.5 MG IV PUSH (16:20)
--- NOTE | 2022-08-27 17:35 | PC.NURSE ---
Dr Hatfield notified of bp 200/80, ng tube out and home bp meds restarted
[2022-08-27] MEDS: lisinopriL 10 MG TABLET PO (17:52)
[2022-08-27] MEDS: PROPRANOLOL HCL 20 MG TABLET PO (17:53)
[2022-08-27] MEDS: ACETAMINOPHEN 325 MG TABLET 650 MG PO (20:17)
[2022-08-28] VITALS (10 sets, daily range): BP systolic 160–175; BP diastolic 81–89; PULSE 74–81; RESP 18–20; TEMP 36.9–37.3; O2SAT 98–99
[2022-08-28] MEDS: SODIUM CHLORIDE 0.9% IV 1,000 ML 100 ML IV CONT (02:08)
[2022-08-28] MEDS: ACETAMINOPHEN 325 MG TABLET 650 MG PO ×4 (02:12→23:32)
[2022-08-28] MEDS: PROPRANOLOL HCL 20 MG TABLET PO ×2 (05:24→17:10)
[2022-08-28 05:44] LABS: Hemoglobin 14.3 g/dL (14.0-18.0); Mean Corpuscular Hemoglobin 29.8 pg (26-34); Mean Corpuscular Volume 87.5 fl (80-100); Mean Platelet Volume 9.8 fl (7.4-10.4); Platelet Count Result 186 k/mm3 (150-375); Red Cell Distribution Width 14.8 % (11.5-14.5); White Blood Count 14.1 K/mm3 (4.5-10.0)
[2022-08-28 05:54] LABS: Anion Gap 8 mmol/L (8-16); Blood Urea Nitrogen 12 mg/dL (9-20); Calcium 8.5 mg/dL (8.4-10.2); Carbon Dioxide 22 mmol/L (22-30); Chloride 107 mmol/L (98-107); Estimated CRCL calculation 117 ml/min; Estimated Glomerular Filt Rate > 60; Glucose 114 mg/dL (65-110); Magnesium 2.1 mg/dL (1.6-2.3); Potassium 3.9 mmol/L (3.4-5.0); Sodium 137 mmol/L (137-145)
--- NOTE | 2022-08-28 08:06 | ECG_ITS ---
Measurements Intervals [place] Rate: 69 P: 61 [place]: 137 QRS: 40 QRSD: 85 T: 48 QT: 405 QTc: 435 Interpretive Statements SINUS RHYTHM NORMAL ECG COMPARED TO ECG 04/29/2021 11:20:28 SINUS RHYTHM NOW PRESENT Electronically Signed On 08-28-2022 10:10:14 STENCILER by Deacon Kign D.O.
[2022-08-28] MEDS: DOXEPIN HCL 10 MG CAPSULE PO ×3 (08:40→17:49)
[2022-08-28] MEDS: lisinopriL 10 MG TABLET PO (08:40)
[2022-08-28] MEDS: lamoTRIgine 50 MG TABLET 150 MG PO (08:40)
[2022-08-28] MEDS: GABAPENTIN 300 MG CAPSULE PO ×3 (08:40→17:10)
[2022-08-28] MEDS: PANTOPRAZOLE SODIUM IV 40 MG VIAL IV PUSH ×2 (08:41→20:25)
[2022-08-28] MEDS: FLUTICASONE PROP 110 MCG INHALER 12 GM (*SP) 1 PUFF INHALATION (08:56)
[2022-08-28] MEDS: UMECLIDINIUM/VILANTEROL 62.5-25 MCG ELLIPTA 1 PUFF INHALATION (08:56)
--- NOTE | 2022-08-28 09:16 | PM.PNGS ---
Progress Note: A&P Assessment and Plan (1) Small bowel obstruction: Code(s): K56.609 - Unspecified intestinal obstruction, unspecified as to partial versus complete obstruction Status: Resolved Assessment and Plan: Patient has no evidence of small-bowel obstruction out. He is having multiple bowel movements and tolerating diet. He no longer has any abdominal pain. Will go ahead and advanced to a regular diet. Hospitalist team is continue to work on as hypertension. He can be discharged home if he is tolerating regular diet and it is okay with the hospitalist team. He would not need follow up in the surgery office after discharge. No new medications are anticipated from a general surgery standpoint at discharge. Subjective Subjective Date/Time Seen: 08/28/22 09:16 Patient reports: no new complaints, feels better and bowel movement Interval history: The patient is doing better today. He has no abdominal pain. He has had multiple bowel movements after his small-bowel follow-through study which was normal. He is advancing his diet and is on full liquids. Internal medicine team continues to work on as hypertension. Review of Systems Review of Systems: The remainder of the review of systems to include constitutional, HEENT, cardiovascular, respiratory, GI, , integumentary, musculoskeletal, endocrine, immunologic, hematologic, psychiatric, and neurologic are all negative except for which is mentioned above in the HPI. Exam Const: General: cooperative and healthy appearing Neck: Neck: full ROM Chest: Chest palpation & inspection: normal inspection of the chest Resp: Effort & Inspection: normal respiratory effort and able to speak in complete sentences Auscultation: clear to auscultation bilaterally Cardio: Jugular venous distension: no JVD Rate: regular rate Rhythm: regular rhythm GI: Other: Abdomen soft and nondistended. It is nontender and benign. Neuro: General: oriented to person and CN's II-XI intact bilaterally Speech: normal speech Extrem: General: normal to inspection Psych: Appearance: grossly normal Speech and movement: Normal speech and movement present Affect: normal affect Attitude: cooperative Objective Data Vital Signs Vital Signs: Vital Signs - 24 hr 08/27/22 13:51 08/27/22 14:58 08/27/22 17:53 Temperature 37.5 C Pulse Rate 85 80 Respiratory Rate 12 Blood Pressure 197/93 H 187/91 H Pulse Oximetry 99 Oxygen Delivery 08/27/22 17:00 08/27/22 19:59 08/27/22 20:17 Temperature 39.2 C H 39.2 C H Pulse Rate 89 Respiratory Rate 20 Blood Pressure 200/80 H 168/71 H Pulse Oximetry 98 Oxygen Delivery 08/27/22 21:04 08/27/22 21:04 08/27/22 21:25 Temperature 38.6 C H Pulse Rate 85 85 Respiratory Rate 18 18 Blood Pressure Pulse Oximetry 97 Oxygen Delivery Room Air 08/27/22 21:17 08/27/22 20:00 08/28/22 04:47 Temperature 38.6 C H 37.1 C Pulse Rate 81 Respiratory Rate 20 Blood Pressure 166/81 H Pulse Oximetry 99 Oxygen Delivery Room Air 08/28/22 05:24 08/28/22 08:39 08/28/22 08:58 Temperature 37.1 C Pulse Rate 81 80 Respiratory Rate 20 Blood Pressure Pulse Oximetry Oxygen Delivery Intake/Output Intake/Output: Intake & Output 08/25/22 08/26/22 08/27/22 08/28/22 23:59 23:59 23:59 23:59 Intake Total 1000 4270 1340 Output Total 1575 800 Balance 1000 2695 540 Meds/Results Medications: Active Medications Generic Name Dose Route Start Last Admin Trade Name Freq PRN Reason Stop Dose Admin Acetaminophen 650 mg 08/27/22 20:08 08/28/22 08:39 Acetaminophen 325 Mg Tablet PO 650 mg Q4H PRN Administration Mild Pain (1-3) or Fever Albuterol 2.5 mg 08/27/22 00:13 Albuterol Sulfate Neb 2.5 Mg/3 Ml Inh INHALATION Q4-6H PRN shortness of breath or wheezing Albuterol 1 puff 08/27/22 00:13 Albuterol Sulfate (*Sp) Aerosol 1 Puff INHALATION
--- NOTE | 2022-08-28 12:11 | PM.IMPN ---
Progress Note: A&P Assessment and Plan (1) Small bowel obstruction: Code(s): K56.609 - Unspecified intestinal obstruction, unspecified as to partial versus complete obstruction Status: Resolved Assessment and Plan: Patient presented with abdominal pain. Initial abdominal CT reviewed which showed small-bowel obstruction with transition point in anterior abdomen. Appreciate general surgery consultation. Patient does have a history of to prior small-bowel obstructions which both resolved with conservative management. [place] to be due to adhesions secondary to several prior abdominal surgeries. KUB on 08/27 showed normal gas pattern. Completed water-soluble small-bowel series which was unremarkable. NG tube was removed and patient has been advanced to full liquids. Regular diet for lunch. IV fluids discontinued as patient is tolerating p.o. intake (2) SIRS (systemic inflammatory response syndrome): Code(s): R65.10 - Systemic inflammatory response syndrome (SIRS) of non-infectious origin without acute organ dysfunction Status: Acute Assessment and Plan: Patient developed fever last night up to 102.6. White blood cell count today increased to 14.1. Etiology for this is unclear. No obvious source of infection. Blood cultures are pending. Initial UA without concerns for infection. Will repeat urine culture today. Will obtain CXR. Recheck COVID and influenza. Continue to monitor fever curve. antipyretics available as needed. monitor CBC with differential (3) Essential (primary) hypertension: Code(s): I10 - Essential (primary) hypertension Status: Acute Assessment and Plan: Blood pressures initially poorly controlled while patient was NPO and not able to take antihypertensives. Improved today after restarting home lisinopril and propranolol. Last BP 166/81. Continue to monitor blood pressure trends. (4) Hypomagnesemia: Code(s): E83.42 - Hypomagnesemia Status: Acute Assessment and Plan: Resolved with supplementation. Magnesium 2.1 today (5) Emphysema of lung: Qualifiers: Emphysema type: unspecified Qualified Code(s): J43.9 - Emphysema, unspecified Code(s): J43.9 - Emphysema, unspecified Status: Acute Assessment and Plan: No acute exacerbation. Continue home inhalers Subjective Date/time seen: 08/28/22 12:11 Interval history: date of service: 08/28/2022 Justin Mittal is a 57-year-old male with a history of CAD, COPD, hypertension, depression, seizure disorder, and several prior bowel obstructions who is seen in follow-up for SBO. patient developed fever up to 102.6 last night. States he felt well and that this was somewhat of a shock to him. he did not have chills or sweats. He denies shortness of breath. He denies urinary symptoms. he denies nausea or vomiting. He has been having loose stools. he is tolerating his diet. He feels very well and has no additional concerns. he was hopeful for discharge today once tolerating a regular diet, but understands that he will need to be monitored given his fever onset Review of Systems Review of Systems: All systems reviewed & are unremarkable except as noted in HPI and below Exam Narrative: General: well-nourished, well-appearing 57-year-old male, sitting up in bed, comfortable, NARD Neuro: awake, alert and oriented x4, speech clear, no focal neuro deficits noted HEENMT: normocephalic, atraumatic, EOMI, sclerae anicteric Respiratory: clear to auscultation bilaterally, nonlabored breathing Cardio: regular rate, regular rhythm with S1-S2 Abdomen: nondistended, normoactive bowel sounds, soft, nontender to palpation Extremities: no edema, erythema, or tenderness to palpation, DP pulses 2+ bilaterally Skin: no rashes or lesions, warm and dry Psych: appropriate mood and affect, judgment and insight intact Objective Data Vital Signs Vital Signs:
[2022-08-28] MEDS: CITALOPRAM HYDROBROMIDE 20 MG TABLET PO (13:44)
[2022-08-28 16:30] LABS: Appearance Urine Clear (Clear); Bilirubin Urine Negative (Negative); Blood Urine Negative (Negative); Color Urine Yellow (Yellow); Glucose Urine UA Negative (Negative); Ketones Urine Negative (Negative); Leukocyte Esterase Ur Negative LEU/UL (Negative); Nitrate Urine Negative (Negative); Protein Urine Negative (Negative)
[2022-08-28 16:38] LABS: WBC Urine 0-3 /hpf
[2022-08-28 16:42] LABS: Add Urine Microscopic? YES
[2022-08-28 18:52] LABS: Influenza A QL RT-PCR Negative (Negative); Influenza B QL RT-PCR Negative (Negative); SARS-CoV-2 RNA PCR Negative
[2022-08-28] MEDS: DIVALPROEX SODIUM ER 500 MG TAB.24H PO (20:26)
[2022-08-28] MEDS: ASPIRIN 81 MG ENTERIC TABLET PO (20:26)
[2022-08-29 00:20] VITALS: TEMP 37.2
[2022-08-29 02:57] VITALS: BP 168/82; PULSE 74; RESP 20; TEMP 37.2; O2SAT 98
[2022-08-29] MEDS: ACETAMINOPHEN 325 MG TABLET 650 MG PO (03:34)
[2022-08-29] MEDS: PROPRANOLOL HCL 20 MG TABLET PO (05:09)
[2022-08-29 05:38] LABS: Basophils Absolute Auto 0.1 K/mm3 (0.0-0.1); Basophils Percent Auto 0.4 % (0.2-1.2); Eosinophils Absolute Auto 0.4 K/mm3 (0-0.3); Eosinophils Percent Auto 2.5 % (0-4.4); Hemoglobin 14.4 g/dL (14.0-18.0); Immature Granulocyte Absolute 0.08 K/mm3 (0.00-0.031); Immature Granulocyte Percent A 0.5 % (0-0.5); Lymphocytes Absolute Auto 5.53 K/mm3 (0.9-3.2); Lymphocytes Percent Auto 37.5 % (18.3-44.2); Mean Corpuscular HGB Conc 34.3 g/dl (32-36); Mean Corpuscular Hemoglobin 29.6 pg (26-34); Mean Corpuscular Volume 86.4 fl (80-100); Monocytes Absolute Auto 1.7 K/mm3 (0.1-0.6); Monocytes Percent Auto 11.2 % (2.6-8.5); Neutrophils Absolute Auto 7.1 K/mm3 (1.3-6.7); Neutrophils Percent Auto 47.9 % (45.5-73.1); Platelet Count Result 187 k/mm3 (150-375); Red Blood Count 4.86 M/mm3 (4.6-6.20); Red Cell Distribution Width 14.6 % (11.5-14.5); White Blood Count 14.8 K/mm3 (4.5-10.0)
[2022-08-29 06:02] LABS: Anion Gap 9 mmol/L (8-16); Blood Urea Nitrogen 15 mg/dL (9-20); Calcium 8.9 mg/dL (8.4-10.2); Carbon Dioxide 23 mmol/L (22-30); Chloride 103 mmol/L (98-107); Estimated CRCL calculation 117 ml/min; Estimated Glomerular Filt Rate > 60; Glucose 113 mg/dL (65-110); Magnesium 1.7 mg/dL (1.6-2.3); Potassium 3.4 mmol/L (3.4-5.0); Sodium 135 mmol/L (137-145)
[2022-08-29 08:00] VITALS: PULSE 74; RESP 20; O2SAT 99
--- NOTE | 2022-08-29 08:59 | PM.PNGS ---
Progress Note: A&P Assessment and Plan (1) Small bowel obstruction: Code(s): K56.609 - Unspecified intestinal obstruction, unspecified as to partial versus complete obstruction Status: Resolved Assessment and Plan: Okay to discharge from surgical standpoint. No follow-up with Dr. Reeves is needed unless further problems. Subjective Subjective Date/Time Seen: 08/29/22 08:59 Patient reports: feels better, tolerating a regular diet, bowel movement and afebrile Review of Systems Review of Systems: All systems reviewed & are unremarkable except as noted in HPI and below (HPI) Exam Const: General: comfortable and no acute distress; No confusion Orientation/consciousness: patient oriented x3 and No confusion GI: Inspection: normal to inspection and obesity GI Palp: Yes Soft to palpation, No Tenderness to palpation present (GI), No Guarding due to palpation present (GI) and No Rebound tenderness present Auscultation: normal bowel sounds Neuro: General: patient oriented x3, no focal motor deficits and No confusion Extrem: General: no calf tenderness and no edema Psych: Affect: normal affect Insight: Good insight present (Psych) Judgement: Good judgement present (Psych) Objective Data Vital Signs Vital Signs: Vital Signs - 24 hr 08/28/22 13:44 08/28/22 14:42 08/28/22 14:40 Temperature 37.1 C 36.9 C Pulse Rate 80 78 Respiratory Rate 18 18 Blood Pressure 160/89 H Pulse Oximetry 98 98 Oxygen Delivery Room Air 08/28/22 17:10 08/28/22 19:59 08/28/22 20:00 Temperature 37.3 C Pulse Rate 80 78 74 Respiratory Rate 20 19 Blood Pressure 175/88 H Pulse Oximetry 98 99 Oxygen Delivery Room Air 08/29/22 00:20 08/29/22 02:57 Temperature 37.2 C 37.2 C Pulse Rate 74 Respiratory Rate 20 Blood Pressure 168/82 H Pulse Oximetry 98 Oxygen Delivery Intake/Output Intake/Output: Intake & Output 08/26/22 08/27/22 08/28/22 08/29/22 23:59 23:59 23:59 23:59 Intake Total 1000 4270 3900 390 Output Total 1575 1350 400 Balance 1000 2695 2550 -10 Meds/Results Medications: Active Medications Generic Name Dose Route Start Last Admin Trade Name Freq PRN Reason Stop Dose Admin Acetaminophen 650 mg 08/27/22 20:08 08/29/22 03:34 Acetaminophen 325 Mg Tablet PO 650 mg Q4H PRN Administration Mild Pain (1-3) or Fever Albuterol 2.5 mg 08/27/22 00:13 Albuterol Sulfate Neb 2.5 Mg/3 Ml Inh INHALATION Q4-6H PRN shortness of breath or wheezing Albuterol 1 puff 08/27/22 00:13 Albuterol Sulfate (*Sp) Aerosol 1 Puff INHALATION Q4H PRN Shortness Of Breath Or Wheezing Aspirin 81 mg 08/28/22 21:00 08/28/22 20:26 Aspirin 81 Mg Enteric Tablet PO 81 mg HS LOREN Administration Citalopram Hydrobromide 20 mg 08/28/22 12:00 08/28/22 13:44 Citalopram Hydrobromide 20 Mg Tablet PO 20 mg NOON LOREN Administration Divalproex Sodium 500 mg 08/28/22 20:00 08/28/22 20:26 Divalproex Sodium Er 500 Mg Tab.24h PO 500 mg DAILY@1999 LOREN Administration Doxepin HCl 10 mg 08/28/22 09:00 08/28/22 17:49 Doxepin Hcl 10 Mg Capsule PO 10 mg TID [facility] Administration Fluticasone Propionate 1 puff 08/27/22 08:00 08/28/22 08:56 Fluticasone Prop 110 Mcg Inhaler 12 Gm (*Sp) INHALATION 1 puff Q12HRT LOREN Administration Gabapentin 300 mg 08/28/22 09:00 08/28/22 17:10 Gabapentin 300 Mg Capsule PO 300 mg TID LOREN Administration Hydralazine HCl 10 mg 08/27/22 00:23 08/27/22 13:47 Hydralazine Hcl 20 Mg/Ml Vial IV PUSH 10 mg Q8H PRN Administration Blood Pressure - High Hydromorphone HCl 0.5 mg 08/26/22 18:05 08/26/22 23:12 Hydromorphone Hcl Inj (*Crx) 1 Mg/Ml Syr IV PUSH 0.5 mg Q4H PRN Administration Pain Rated 7-10 Lamotrigine 150 mg 08/28/22 09:00 08/28/22 08:40 Lamotrigine 50 Mg Tablet PO 150 mg DAILY LOREN Administration Lisinopril 10 mg 08/27/22 17:35 08/28/22 08:40
[2022-08-29] MEDS: FLUTICASONE PROP 110 MCG INHALER 12 GM (*SP) 1 PUFF INHALATION (09:26)
[2022-08-29] MEDS: UMECLIDINIUM/VILANTEROL 62.5-25 MCG ELLIPTA 1 PUFF INHALATION (09:26)
[2022-08-29 09:28] VITALS: O2SAT 99
[2022-08-29] MEDS: lamoTRIgine 50 MG TABLET 150 MG PO (10:59)
[2022-08-29] MEDS: GABAPENTIN 300 MG CAPSULE PO ×2 (10:59→12:53)
[2022-08-29] MEDS: lisinopriL 10 MG TABLET PO (10:59)
[2022-08-29] MEDS: DOXEPIN HCL 10 MG CAPSULE PO ×2 (10:59→12:53)
[2022-08-29] MEDS: PANTOPRAZOLE SODIUM IV 40 MG VIAL IV PUSH (11:00)
[2022-08-29 12:31] VITALS: TEMP 37.2
[2022-08-29] MEDS: CITALOPRAM HYDROBROMIDE 20 MG TABLET PO (12:53)
--- NOTE | 2022-08-29 13:00 | PM.DS ---
DS: Admitting Diagnosis Discharge Date 08/29/2022 Admitting Diagnosis Small-bowel obstruction DS: Discharge Diagnosis Discharge Diagnosis (1) Small bowel obstruction: Code(s): K56.609 - Unspecified intestinal obstruction, unspecified as to partial versus complete obstruction Status: Resolved Assessment and Plan: Patient presented with abdominal pain. Initial abdominal CT reviewed which showed small-bowel obstruction with transition point in anterior abdomen. Seen in consultation by general surgery. Patient does have a history of two prior small-bowel obstructions which both resolved with conservative management. [place] to be due to adhesions secondary to several prior abdominal surgeries. Patient had symptomatic improvement following bowel rest and NG decompression. KUB on 08/27 showed normal gas pattern. Completed water-soluble small-bowel series which was unremarkable. NG tube was removed and patient was able to advance to a regular diet. (2) SIRS (systemic inflammatory response syndrome): Code(s): R65.10 - Systemic inflammatory response syndrome (SIRS) of non-infectious origin without acute organ dysfunction Status: Acute Assessment and Plan: Patient developed fever on 08/27/2022 up to 102.6 with increased leukocytosis of 14.1. Etiology unclear. There was no findings to indicate infection. Workup was completed including repeat UA which was not concerning for infection, CXR which did not reveal any findings of pneumonia or other respiratory disease, COVID and influenza testing which were negative. Blood cultures were obtained and were negative for 48 hours at time of discharge. Final cultures will be monitored. Patient remained afebrile for 36 hours and had no symptoms. (3) Essential (primary) hypertension: Code(s): I10 - Essential (primary) hypertension Status: Acute Assessment and Plan: Blood pressures initially poorly controlled while patient was NPO and not able to take antihypertensives. Improved following restarting home lisinopril and propranolol. Continue home regimen (4) Hypomagnesemia: Code(s): E83.42 - Hypomagnesemia Status: Acute Assessment and Plan: Resolved with supplementation. (5) Emphysema of lung: Qualifiers: Emphysema type: unspecified Qualified Code(s): J43.9 - Emphysema, unspecified Code(s): J43.9 - Emphysema, unspecified Status: Acute Assessment and Plan: No acute exacerbation. Continue home inhalers DS: Summary Hospital Course Hospital Course: Date of admission: 08/26/2022 Date of discharge: 08/29/2022 Justin Mittal is a 57-year-old male with a history of CAD, COPD, hypertension, depression, seizure disorder, and several prior bowel obstructions who?presented to the emergency department on 08/26/2022 with complaints of sharp abdominal pain onset that morning. On presentation to the ED, his vital signs were stable, white blood cell count 10.0, additional laboratory workup unremarkable, and CT of the abdomen/pelvis showed small-bowel obstruction with transition point in the anterior abdomen. He was admitted to the hospitalist service for further evaluation and management and was seen in consultation by General surgery. Please see above for further details. Obstruction resolved following NG decompression. He was able to advance to a regular diet and he tolerated this well. He did develop fever during admission with leukocytosis, however workup was negative and there was no it is abuse source of infection. Blood cultures negative for 48 hours with final results pending at time of discharge. Did discuss with the patient's worrisome signs and symptoms for which to monitor and seek medical care and he is aware that his blood cultures will be monitored. He felt back to his usual state of health and was eager for discharge home. Given overall improvement, he was determined to no
--- NOTE | 2022-09-03 08:16 | PC.NURSE ---
Blood cx are negative.
== END 2022-08-29 13:35 | disposition home or self-care (01) | DRG 390 ==
LOC: ANHED 18:17 → ANH2MED 19:30
PROVIDERS: Family Medicine; Nurse Practitioner; Admitting Provider Family Medicine; Emergency Provider Emergency Medicine; PCP Family Medicine; Visit Provider Physician Assistant
DX: K56.51 Intestinal adhesions [bands], with partial obstruction (principal); I10 Essential (primary) hypertension; E83.42 Hypomagnesemia; J43.9 Emphysema, unspecified; G40.909 Epilepsy, unspecified, not intractable, without status epilepticus; Z20.822 Contact with and (suspected) exposure to COVID-19; I25.10 Atherosclerotic heart disease of native coronary artery without angina pectoris; F32.A Depression, unspecified; F41.9 Anxiety disorder, unspecified; E78.5 Hyperlipidemia, unspecified; Z96.611 Presence of right artificial shoulder joint; Z79.82 Long term (current) use of aspirin; Z87.891 Personal history of nicotine dependence
CPT/HCPCS: 36415; 71046; 74019; 74177; 74250; 80048; 80053; 81001; 81003; 83690; 83735; 84443; 85025; 85027; 87040; 87636; 93005; 94640; 96360; 99285; A9270; C9113; J0131; J0360; J1170; J2060; J2405; J3475; J7030; Q9967

== ENCOUNTER 2022-09-30 09:51 | Outpatient (CLI) | payer MEDICARE, SELFPAY ==
[2022-09-30 11:21] LABS: Urine Cotinine NEGATIVE
[2022-09-30 11:23] LABS: Basophils Absolute Auto 0.1 K/mm3 (0.0-0.1); Basophils Percent Auto 0.5 % (0.2-1.2); Eosinophils Absolute Auto 0.3 K/mm3 (0-0.3); Eosinophils Percent Auto 2.9 % (0-4.4); Hematocrit 42.9 % (42.0-52.0); Hemoglobin 14.2 g/dL (14.0-18.0); Immature Granulocyte Absolute 0.03 K/mm3 (0.00-0.031); Immature Granulocyte Percent A 0.3 % (0-0.5); Lymphocytes Absolute Auto 4.08 K/mm3 (0.9-3.2); Lymphocytes Percent Auto 37.2 % (18.3-44.2); Mean Corpuscular HGB Conc 33.1 g/dl (32-36); Mean Corpuscular Volume 90.7 fl (80-100); Mean Platelet Volume 9.9 fl (7.4-10.4); Monocytes Absolute Auto 1.1 K/mm3 (0.1-0.6); Monocytes Percent Auto 10.1 % (2.6-8.5); Neutrophils Absolute Auto 5.4 K/mm3 (1.3-6.7); Platelet Count Result 160 k/mm3 (150-375); Red Blood Count 4.73 M/mm3 (4.6-6.20); Red Cell Distribution Width 14.3 % (11.5-14.5)
[2022-09-30 12:17] LABS: Hemoglobin A1C 5.8 % (<5.7)
[2022-09-30 12:28] LABS: Valproic Acid 63.6 ug/mL (50-120)
== END 2022-09-30 09:52 | disposition home or self-care (01) ==
LOC: ANHSURGERY 09:56
PROVIDERS: Anesthesiology; PCP Family Medicine; Visit Provider Orthopaedic Surgery
DX: F31.9 Bipolar disorder, unspecified (principal); M17.12 Unilateral primary osteoarthritis, left knee; Z01.818 Encounter for other preprocedural examination
CPT/HCPCS: 80164; 80307; 83036; 85025; 87081

== ENCOUNTER 2022-10-21 15:30 | Observation (INO) | payer MEDICARE, SELFPAY ==
[2022-09-30 10:02] VITALS: BMI 36.1
--- NOTE | 2022-09-30 10:29 | PC.NURSE ---
Report to the Outpatient Waiting Room, entrance under the green pavilion located off [address], at time _0630 on date __10/20/22 . Planned Procedure Time: __829 . Time changes happen often and if your time is changed the preop area will call you the afternoon before. - You and your visitor will be asked to self-screen and do not enter if you have any COVID symptoms. - Only one visitor is requested with a max of two and NO children visitors are allowed at this time. - The patient visitor may be requested to leave or wait in car when not with patient due to distancing restrictions. - A mask is optional within the hospital at this time. Patients may have clear liquids (water, carbonated beverages, clear teas, apple juice) until 3 hours prior to surgery with a maximum of 20 ounces. - No food from midnight until time of surgery - Infants may have breast milk until 4 hours before surgery, infant formula 6 hours prior to surgery. - Children will be allowed to drink immediately following surgery. If applicable, please bring a bottle or sippy cup to assist with drinking. Juice, water, soda, and popsicles are readily available. For infants on formula, please bring formula the day of surgery. Pacifiers are allowed. Take the following medications with a SIP of water the morning of surgery: ___INHALER,DOXEPIN,GABAPENTIN,LAMOTRIGINE,PROPRANOLOL, DO NOT STOP ANY OF YOUR OTHER PRESCRIPTION MEDICATIONS PRIOR TO SURGERY ?EXCEPT THE FOLLOWING Medications to discontinue per physician ___ASPIRIN AND MELOXICAM 7 DAYS PRE OP PER DR LOPEZ. LAST DOSE 10/12/22 ALL VITAMINS AND SUPPLEMENTS 3 DAYS PRE OP.LAST DOSE10/16/22 TOTAL JOINT CLASS 10/07/22 AT 10 AM Please no make-up, nail scottish, hairspray, perfume, deodorant, or body powder the day of surgery. No jewelry (including any body piercings) or valuables the day of surgery, leave them at home. Please take a shower or bath the night before, or the morning of, surgery with an antibacterial soap. Wear comfortable, loose fitting clothing. Children are encouraged to wear pajamas. - Jewelry must be removed prior to entering the operating room. Rings and piercings that are not removed may be cut off. - The hospital will not accept responsibility for valuables. - Please leave all valuables, including medications, at home the day of surgery. If you are going home after surgery, a licensed inventory associate and driver must drive you home. - NO public transportation without another adult if you receive anesthesia. - We recommend that an adult stay with you for 24 hours following discharge. - We also recommend that you do not drive, make important decision, drink alcoholic beverages, or take any drugs that were not prescribed by your health care provider for at least 24 hours after your discharge time. For Pediatric surgeries, we recommend two adults accompany the child home. Follow any additional instructions given to you from your surgeon. If you or anyone in your household have experienced Covid symptoms in the past week, please notify your surgeon or the nurse liaison at the phone number below for possible testing. VERBAL AND WRITTEN instructions given to __PATIENT AND PERNELL and asked if any additional questions and then verbalized understanding. Patient advised to call surgeon office or pre surgery nurse liaison [phone] if any additional questions.
[2022-09-30 10:48] VITALS: BP 134/76; PULSE 67; RESP 18; TEMP 36.8; O2SAT 99
[2022-10-20] VITALS (15 sets, daily range): BP systolic 131–181; BP diastolic 70–83; PULSE 71–88; RESP 11–18; TEMP 36.1–36.8; O2SAT 92–100
[2022-10-20] MEDS: TRANEXAMIC ACID 1,000MG/ISO100 1,000 MG/100 ML BAG 200 MG IVPB (06:30)
[2022-10-20] MEDS: LACTATED RINGERS 1,000 ML 30 ML IV CONT ×2 (06:40→11:21)
[2022-10-20] MEDS: ACETAMINOPHEN 500 MG TABLET 1000 MG PO (06:41)
[2022-10-20 06:44] LABS: Glucose Point of Care 103 mg/dl (65-105)
--- NOTE | 2022-10-20 07:37 | WPDANESEPPF ---
Anes - Initial Pre Proc Eval Procedure: Operation Date: 10/20/22 08:30 Proposed Procedures p Left Custom Total Knee Arthroplasty - Jareth Burgos MD Date/Time: 10/20/22 07:37 Surgeon: Jareth Burgos MD Pre Op Diagnosis: primary OA left knee Patient Data Age: 57 Gender: M Height: 1.73 m Weight: 107 kg Last Vital Signs Temp 36.8 C 09/30/22 10:48 Pulse 67 09/30/22 10:48 Resp 18 09/30/22 10:48 BP 134/76 09/30/22 10:48 Pulse Ox 99 09/30/22 10:48 O2 Del Method Room Air 09/30/22 10:48 Allergies Allergy/AdvReac Type Severity Reaction Status Date / Time No Known Allergies Allergy Unknown N/A Verified 10/20/22 07:05 Home Medications Medication Instructions Recorded Confirmed Type citalopram 20 mg tablet 20 mg PO .NOON 08/30/20 10/20/22 History blood-glucose meter ([facility] #1 ea 01/08/21 10/20/22 Rx Ultra2 Meter kit) lurasidone 80 mg tablet (Latuda) 80 mg PO .NOON 09/09/21 10/20/22 History doxepin 10 mg capsule 10 mg PO TID 10/20/21 10/20/22 History albuterol sulfate 2.5 mg/3 mL 2.5 mg (3 mL) inhalation Q4-6H PRN 12/12/21 10/20/22 Rx (0.083 %) solution for nebulization shortness of breath or wheezing #90 mL aspirin 81 mg tablet,delayed 81 mg PO HS 04/02/22 10/20/22 History release lamotrigine 200 mg tablet 150 mg PO DAILY 04/02/22 10/20/22 History (Lamictal) tizanidine 4 mg tablet 4 mg PO TID PRN muscle spasticity 06/24/22 10/20/22 Rx #60 tabs meloxicam 15 mg tablet 15 mg PO DAILY #30 tabs 06/29/22 10/20/22 Rx sildenafil 100 mg tablet 100 mg PO DAILY PRN sexual 07/08/22 10/20/22 Rx activity #30 tabs Anoro Ellipta 62.5 mcg-25 1 inh inhalation DAILY #60 ea 07/20/22 10/20/22 Rx mcg/actuation powder for inhalation (umeclidinium-vilanterol) blood sugar diagnostic #100 ea 07/27/22 10/20/22 Rx lancets #100 ea 07/27/22 10/20/22 Rx polyethylene glycol 3350 17 17 g PO DAILY #850 grams 08/02/22 10/20/22 Rx gram/dose oral powder (Miralax) acetaminophen 500 mg tablet 500 mg PO Q6H PRN Pain (Scale 08/11/22 10/20/22 History Score 1-3) propranolol 20 mg tablet 20 mg PO Q12H #60 tabs 08/20/22 10/20/22 Rx albuterol sulfate 90 mcg/actuation 1 puff inhalation Q4H PRN 08/26/22 10/20/22 History aerosol inhaler Shortness Of Breath Or Wheezing fluticasone propionate 110 1 puff inhalation Q12H 08/26/22 10/20/22 History mcg/actuation HFA aerosol inhaler lisinopril 10 mg tablet 10 mg PO DAILY 08/26/22 10/20/22 History omeprazole 40 mg capsule,delayed 40 mg PO BID 08/26/22 10/20/22 History release potassium chloride 20 mEq 40 meq PO DAILY 08/26/22 10/20/22 History tablet,extended release trazodone 100 mg tablet 100 mg PO HS 08/26/22 10/20/22 History gabapentin 300 mg capsule 300 mg PO TID #90 caps 09/29/22 10/20/22 Rx cholecalciferol (vitamin D3) 25 25 mcg PO DAILY 09/30/22 10/20/22 History mcg (1,000 unit) tablet divalproex 500 mg tablet,delayed 1,000 mg PO ONCE 09/30/22 10/20/22 History release (Depakote) gofdjfhibakk-eft-ysnez acid-vit 1 tablet PO DAILY 09/30/22 10/20/22 History K-lycop 400 mcg-20 mcg-370 mcg tablet (One-A-Day Men's 50 Plus) omega-3 fatty acids 1,000 mg PO DAILY 09/30/22 10/20/22 History vitamin B complex 1 cap PO DAILY 09/30/22 10/20/22 History simvastatin 20 mg tablet 20 mg PO HS #90 tabs 10/01/22 10/20/22 Rx hydrocodone 7.5 mg-acetaminophen 0.5 tablet PO Q6H PRN Pain (Scale 10/12/22 10/20/22 Rx 325 mg tablet Score 4-6) #60 tabs Laboratory Tests 10/20/22 10/20/22 06:36 06:37 POC Capillary Glucose 103 mg/dl mg/dl (65-105) Blood Type O Positive Antibody Screen Pending Patient hx anesthesia problems: none Family hx anesthesia problems: none Results Review: All pre-operative results and documents have been reviewed as part of the pre-operative evaluation. [facility] Past Medical History Medical History Adenomatous co
--- NOTE | 2022-10-20 08:19 | WPDHPUPDATE1 ---
History and Physical Update Update Date/Time: 10/20/22 08:19 History and Physical has been reviewed, including an updated exam of the patient. There are NO changes in the patient's condition. Risks, benefits, and alternatives have been discussed and questions answered. Patient agrees to proceed with procedure.
[2022-10-20] MEDS: ceFAZolin 2 GM/D5W 50 ML 2 GM/50 ML BAG IVPB ×3 (08:34→23:29)
--- NOTE | 2022-10-20 08:36 | WPDANESPNB ---
Anes - Peripheral Nerve Block Date/Time: 10/20/22 08:36 I have discussed with the patient/family/POA the placement of a peripheral nerve block for post-operative pain management, including associated risks, benefits, complications, and side effects. Alternative methods of post-operative analgesia were detailed. Questions were solicited and answers provided to the satisfaction of the patient/family/POA. Time-Out: A pre-procedural Time-Out was completed immediately before starting the procedure and confirmed: Patient Identification, Site, Procedure, Patient Position and the Availability of Requisite Equipment. Clinical Indications: Acute post-operative pain management requested by the operative surgeon. Nerve Block Insertion Note Anes-nerve block: adductor canal left Patient position: supine Skin prep: chlorhexidine Needle: 22 gauge, stimulating, insulated echogenic needle. Needle length: 80 mm Technique: ultrasound Injectate: bupivacaine 0.5% with epi 5 mcg/ml (30ml no epi) and dexamethasone (mg) (4) Observations: tolerated well Complications: none Procedure start time:: 823 Procedure end time:: 830
[2022-10-20] MEDS: GENTAMICIN BONE CEMENT REFOBACIN 1 EACH TOPICAL (09:27)
--- NOTE | 2022-10-20 10:18 | PM.DS ---
DS: Admitting Diagnosis Discharge Date 10/21/22 Admitting Diagnosis OA knee Left DS: Discharge Diagnosis Discharge Diagnosis (1) Orthopedic aftercare for joint replacement: Code(s): Z47.1 - Aftercare following joint replacement surgery Status: Acute Plan Postop day 1: Left total knee arthroplasty. Patient tolerated procedure well. He did have some bleeding from the wound inferior wound. Wound painted with Betadine, new steristrips and Mepilex applied. Not currently bleeding. Patient does have an issue with pain control. He was on chronic pain medications prior to surgery. He understands that pain control will be difficult for him. No numbness or tingling. We had a lengthy discussion regarding postoperative wound care, limitations, expectations, and exercises. Patient shows good understanding. He has had initial physical therapy and is tolerating it well. DVT prophylaxis: 81 mg baby aspirin b.i.d. for 14 days. Pain medication: Percocet. Meloxicam. Prednisone. (He is instructed to check his blood sugars and if blood sugar gets too high, he should stop the Prednisone.) Patient has followup appointment with Dr. Burgos in 3 weeks. DS: Summary Hospital Course Reason for hospitalization: Total knee arthroplasty Hospital Course: Patient tolerated procedure well. Has had initial PT/OT. Status at Discharge Functional status at discharge: uses cane/walker Overall status at discharge: patient is progressing back to baseline Time Spent with Patient Time attestation: Total time spent providing and/or coordinating discharge services: Exam Narrative: Overweight 57-year-old male. Resting comfortably in bed. Alert and oriented x3. No acute distress. In pain. Compression socks bilaterally. Dressing intact without drainage. Moderate swelling. No ecchymosis. No erythema. No hematoma. Range of motion limited due to pain 5-45 degrees. Good quad function. Calf nontender. Neurologic status intact. No varicosities. Distal pulses palpable. DS: Data Data Completed and Pending Labs on day of discharge: Labs from last 24 hours 10/20/22 10/20/22 06:37 06:36 POC Capillary Glucose 103 Blood Type O Positive Antibody Screen Negative Discharge Plan Discharge Patient Disposition: Home, Self-Care Discharge Instructions: See green instruction sheets Stand Alone Forms: General Discharge Instructions Follow-up/Referrals: Lisette Lawrence PA [Physician Sludge Control Attendant] - Discharge Medications: New aspirin 81 mg tablet,delayed release (DR/EC) 81 mg PO BID 14 Days Qty: 28 0RF oxycodone-acetaminophen 5-325 mg tablet 1 - 2 tablet PO Q4-6H MDD 6 PRN (Reason: pain) Qty: 30 0RF prednisone 5 mg tablet 5 mg PO DAILY 21 Days Qty: 21 0RF Continued lamotrigine [Lamictal] 200 mg tablet 150 mg PO DAILY albuterol sulfate 2.5 mg /3 mL (0.083 %) solution for nebulization 2.5 mg inhalation Q4-6H PRN (Reason: shortness of breath or wheezing) Qty: 90 3RF Latuda 80 mg tablet 80 mg PO .NOON Rx Instructions: must administer with food (at least 350 calories), adminster at NOON acetaminophen 500 mg tablet 500 mg PO Q6H PRN (Reason: Pain (Scale Score 1-3)) divalproex [Depakote] 500 mg tablet,delayed release (DR/EC) 1,000 mg PO ONCE Label Comments: TAKES AT HS vitamin B complex Capsule 1 cap PO DAILY cholecalciferol (vitamin D3) 25 mcg (1,000 unit) Tablet 25 mcg PO DAILY One-A-Day Men's 50 Plus 400-20-370 mcg Tablet 1 tablet PO DAILY omega-3 fatty acids Capsule 1,000 mg PO DAILY citalopram 20 mg tablet 20 mg PO .NOON doxepin 10 mg capsule 10 mg PO TID aspirin 81 mg Tablet,Delayed Release (Dr/Ec) 81 mg PO HS trazodone 100 mg tablet 100 mg PO HS omeprazole 40 mg capsule,delayed release(DR/EC) 40 mg PO BID lisinopril 10 mg tablet 10 mg PO DAILY albuterol sulfate 90
--- NOTE | 2022-10-20 10:57 | P.OP_ITS ---
Procedure Note - Detailed Date of Procedure 10/20/22 Pre-op Diagnosis primary OA left knee Post-op Diagnosis Same Procedure Performed Total knee arthroplasty, left. Surgeon Jareth Burgos MD Sweatband Maker Lisette Lawrence PA-C Anesthesia General and Regional (Subsartorial block.) Findings Excellent bone quality. Moderate medial release, with needle release. Standard bone resections with Imprint PSI. Description of Procedure Preoperative antibiotics were given. The limb was prepped and draped in the usual sterile fashion with a well-padded tourniquet high on the thigh. The limb was exsanguinated and the tourniquet inflated to 300 mmHg. A longitudinal incision was created just medial to the patella. A trivector approach to the knee was performed. Arthrotomy was taken down through the joint capsule. No significant releases were initially taken. The femur was exposed and the F1 jig was applied. The coring tool was used to remove the cartilage for the F2 jig to sit flush with the bone. The jig was pinned and the distal cut carefully taken. Caliper measurements confirmed appropriate bony resections according to the preoperative templated plan. The F4 cutting jig for the femur was applied, at the standard rotation. The AP and anterior chamfer cuts were taken. The F5 jig was applied and the posterior chamfer cuts were taken. The tibia was prepared using the T1 jig, after removing cartilage for the jig contact points. Proper alignment was checked with the alignment jeimy. The tibia was cut using the T1u guide. Gap balancing was performed. Gap measurements were taken and the knee was trialed. Excellent alignment and soft tissue balancing was confirmed. The posterior cruciate ligament was recessed along the proximal tibia. The patella was cut for resurfacing. Three lug holes were drilled. Meniscal remnants were removed. The trial components were assembled. Excellent range of motion and proper soft tissue balancing were confirmed throughout the full range of motion. Patellar tracking was excellent. The knee was copiously irrigated periodically throughout the procedure. The real implants were cemented into position. Excess cement was carefully removed. The wound was closed in layers with interrupted #1 Vicryl suture, 2-0 strata fix suture, 0 strata fix suture, 2-0 strata fix suture. Steri-Strips placed on the skin with the knee flexed. Sterile bulky dressing applied. The patient was brought to the recovery room in stable condition. There were no complications. Physician special education educational assistant, Lisette Lawrence PA-C, required for surgery; including patient positioning, draping, tissue retraction, maintaining instrument position, wound closure, and dressing placement. Implants Conformis Imprint total knee arthroplasty. Cemented. Cruciate retaining. 10mm insert. 41 mm oval patella. Estimated Blood Loss 300 Tourniquet Time 34 Drains No Complications No immediate complications Condition Stable Disposition PACU [facility] Billing Surgery - Charge Forward: Surgery Billing
[2022-10-20] MEDS: fentaNYL CITRATE INJ (*CRX) 100 MCG/2 ML VIAL 25 MCG IV PUSH ×3 (11:30→11:50)
[2022-10-20 11:43] LABS: Glucose Point of Care 172 mg/dl (65-105)
--- NOTE | 2022-10-20 12:35 | PC.NURSE ---
This patient, Justin Mittal, was admitted to [facility] Surg Room 322-02. Patient/family oriented to hospital policies and general routines including ID bracelet, bed and alarms, visiting hours, pain management, procedures, bathroom and other care routines, personal items, smoking policy, room service/diet, and visiting hours. Information on how to activate the Rapid Response Team has been discussed. Patient/Family are encouraged to report perceived risks to care and to ask questions if they do not understand what they are told or what they should do.
[2022-10-20] MEDS: SODIUM CHLORIDE 0.9% IV 1,000 ML 125 ML IV CONT (13:02)
[2022-10-20] MEDS: GABAPENTIN 300 MG CAPSULE PO ×2 (13:05→16:53)
[2022-10-20] MEDS: CITALOPRAM HYDROBROMIDE 20 MG TABLET PO (13:05)
[2022-10-20] MEDS: DOXEPIN HCL 10 MG CAPSULE PO ×2 (13:05→16:55)
[2022-10-20] MEDS: oxyCODONE HCL (*CRX) 5 MG TAB IR 10 MG PO ×3 (14:04→23:28)
--- NOTE | 2022-10-20 14:21 | PCRCNOTE ---
PT. DOES NOT WISH TO WEAR HOME BIPAP WHILE HERE.
[2022-10-20] MEDS: traMADol HCL (*CRX) 50 MG TABLET PO (15:45)
[2022-10-20] MEDS: ASPIRIN 81 MG ENTERIC TABLET PO (16:54)
[2022-10-20] MEDS: SENNA/DOCUSATE SODIUM TABLET 2 TAB PO (16:56)
[2022-10-20] MEDS: FLUTICASONE PROP 110 MCG INHALER 12 GM (*SP) 1 PUFF INHALATION (20:53)
[2022-10-20] MEDS: DIVALPROEX SODIUM DR 250 MG TABEC 1000 MG PO (21:05)
[2022-10-20] MEDS: PROPRANOLOL HCL 20 MG TABLET PO (21:05)
[2022-10-20] MEDS: traZODone HCL 50 MG TABLET 100 MG PO (21:06)
[2022-10-20] MEDS: PANTOPRAZOLE 40 MG TABLET PO (21:06)
[2022-10-20] MEDS: SIMVASTATIN 20 MG TABLET PO (21:06)
[2022-10-20] MEDS: oxyCODONE HCL (*CRX) 5 MG TAB IR PO (21:06)
[2022-10-20] MEDS: CYCLOBENZAPRINE HCL 10 MG TABLET PO (21:06)
[2022-10-21] VITALS (9 sets, daily range): BP systolic 160–199; BP diastolic 79–98; PULSE 66–84; RESP 12–20; TEMP 36.3–36.9; O2SAT 94–99
--- NOTE | ~2022-10-21 | XR_ITS ---
EXAMINATION: [id number] DATE: 10/20/2022 11:18 INDICATION: Postoperative evaluation following left total knee arthroplasty. TECHNIQUE: Anteroposterior and lateral views of the left knee were obtained. COMPARISON: None. FINDINGS: Left total knee arthroplasty with patellar resurfacing appears well seated and in near anatomic align ment. No fractures identified. Expected postoperative subcutaneous and intra-articular gas. IMPRESSION: 1. Left total knee arthroplasty, negative for postoperative purposes. Reviewed, dictated and finalized at location L.
[2022-10-21] MEDS: oxyCODONE HCL (*CRX) 5 MG TAB IR 10 MG PO ×4 (03:37→21:05)
[2022-10-21 06:37] LABS: Basophils Percent Auto 0.1 % (0.2-1.2); Hematocrit 37.4 % (42.0-52.0); Hemoglobin 12.8 g/dL (14.0-18.0); Immature Granulocyte Absolute 0.09 K/mm3 (0.00-0.031); Immature Granulocyte Percent A 0.6 % (0-0.5); Lymphocytes Absolute Auto 2.59 K/mm3 (0.9-3.2); Lymphocytes Percent Auto 17.3 % (18.3-44.2); Mean Corpuscular HGB Conc 34.2 g/dl (32-36); Mean Corpuscular Hemoglobin 30.4 pg (26-34); Mean Corpuscular Volume 88.8 fl (80-100); Mean Platelet Volume 9.8 fl (7.4-10.4); Monocytes Absolute Auto 1.8 K/mm3 (0.1-0.6); Monocytes Percent Auto 11.8 % (2.6-8.5); Neutrophils Absolute Auto 10.5 K/mm3 (1.3-6.7); Neutrophils Percent Auto 70.2 % (45.5-73.1); Platelet Count Result 175 k/mm3 (150-375); Red Blood Count 4.21 M/mm3 (4.6-6.20); Red Cell Distribution Width 13.5 % (11.5-14.5)
[2022-10-21 06:47] LABS: Anion Gap 6 mmol/L (8-16); Blood Urea Nitrogen 11 mg/dL (9-20); Calcium 8.7 mg/dL (8.4-10.2); Carbon Dioxide 29 mmol/L (22-30); Chloride 103 mmol/L (98-107); Estimated CRCL calculation 104 ml/min; Estimated Glomerular Filt Rate > 60; Glucose 117 mg/dL (65-110); Potassium 4.3 mmol/L (3.4-5.0); Sodium 138 mmol/L (137-145)
[2022-10-21] MEDS: traMADol HCL (*CRX) 50 MG TABLET PO ×3 (07:02→16:40)
[2022-10-21] MEDS: CYCLOBENZAPRINE HCL 10 MG TABLET PO (08:20)
[2022-10-21] MEDS: GABAPENTIN 300 MG CAPSULE PO ×3 (08:28→16:31)
[2022-10-21] MEDS: lamoTRIgine 50 MG TABLET 150 MG PO (08:28)
[2022-10-21] MEDS: MELOXICAM 7.5 MG TABLET 15 MG PO (08:28)
[2022-10-21] MEDS: SENNA/DOCUSATE SODIUM TABLET 2 TAB PO ×2 (08:29→16:31)
[2022-10-21] MEDS: lisinopriL 10 MG TABLET PO (08:29)
[2022-10-21] MEDS: predniSONE 5 MG TABLET PO (08:29)
[2022-10-21] MEDS: DOXEPIN HCL 10 MG CAPSULE PO ×3 (08:29→16:31)
[2022-10-21] MEDS: PROPRANOLOL HCL 20 MG TABLET PO ×2 (08:29→21:11)
[2022-10-21] MEDS: PANTOPRAZOLE 40 MG TABLET PO ×2 (08:30→21:10)
[2022-10-21] MEDS: ASPIRIN 81 MG ENTERIC TABLET PO ×2 (08:30→16:30)
[2022-10-21] MEDS: polyethylene glycoL 3350 17 GM POWD.PACK PO (08:30)
[2022-10-21] MEDS: ceFAZolin 2 GM/D5W 50 ML 2 GM/50 ML BAG IVPB (08:36)
[2022-10-21] MEDS: UMECLIDINIUM/VILANTEROL 62.5-25 MCG ELLIPTA 1 PUFF INHALATION (09:17)
[2022-10-21] MEDS: FLUTICASONE PROP 110 MCG INHALER 12 GM (*SP) 1 PUFF INHALATION ×2 (09:17→20:05)
[2022-10-21] MEDS: ACETAMINOPHEN 500 MG TABLET 1000 MG PO ×3 (09:40→21:09)
--- NOTE | 2022-10-21 11:43 | P.PNAN_ITS ---
Anes - Prog Note Post-Op Date/Time: 10/21/22 11:43 Cardiovascular status: normal Respiratory status: normal Airway patency: baseline Mental status: baseline Post-Op hydration status: normal Vital Signs: Last Vital Signs Temp 36.4 C 10/21/22 08:00 Pulse 78 10/21/22 08:29 Resp 20 10/21/22 08:00 BP 196/88 H 10/21/22 10:40 Pulse Ox 99 10/21/22 08:00 O2 Del Method Room Air 10/21/22 08:30 O2 Flow Rate 6 10/20/22 11:20 Pain Score (VAS): 0 I/O: Intake & Output 10/20/22 10/21/22 10/21/22 23:59 07:59 15:59 Intake Total 422 462 Output Total 400 Balance 422 -400 462 Laboratory Tests 10/21/22 06:12 10/21/22 06:12 10/20/22 10/21/22 10/21/22 11:41 06:12 06:12 WBC 15.0 H RBC 4.21 L Hgb 12.8 L Hct 37.4 L MCV 88.8 MCH 30.4 MCHC 34.2 RDW 13.5 Plt Count 175 MPV 9.8 Immature Gran % (Auto) 0.6 H Neut % (Auto) 70.2 Lymph % (Auto) 17.3 L [place] % (Auto) 11.8 H Eos % (Auto) 0.0 Baso % (Auto) 0.1 L Lymph # (Auto) 2.59 [place] # (Auto) 1.8 H Eos # (Auto) 0.0 Baso # (Auto) 0.0 Abs Immat Gran (auto) 0.09 H Absolute Neuts (auto) 10.5 H Absolute Nucleated RBC 0.0 Nucleated RBC % 0.0 Sodium 138 Potassium 4.3 Chloride 103 Carbon Dioxide 29 Anion Gap 6 L BUN 11 Creatinine 0.80 Estim Creat Clear Calc 104 Estimated GFR > 60 Glucose 117 H POC Capillary Glucose 172 H Calcium 8.7 Post-procedural complaints: none Patient Feedback: Patient satisfied with anesthetic care.
--- NOTE | 2022-10-21 12:05 | PC.NURSE ---
The WOW stopped scanning patient wrist band and meds. IT called. Meds given without scanning.
[2022-10-21] MEDS: CITALOPRAM HYDROBROMIDE 20 MG TABLET PO (12:35)
--- NOTE | 2022-10-21 13:37 | PM.IMCN ---
Assessment and Plan Assessment and plan (1) Status post total left knee replacement: Code(s): Z96.652 - Presence of left artificial knee joint Status: Acute Assessment and Plan: Postop care per orthopedic physician Pain Management as per orthopedic physician. The patient has Tylenol, cyclobenzaprine, gabapentin, Mobic, oxycodone, prednisone, and tramadol ordered. The patient stated that he is still having some discomfort to his left knee. DVT prophylaxis per orthopedic physician. The patient has OLINDA, SCDs, and aspirin. (2) Bipolar disorder: Code(s): F31.9 - Bipolar disorder, unspecified Status: Acute Assessment and Plan: Continue with Celexa, doxepin, Lamictal, and trazodone Latuda is non formulary and the patient may use from home. (3) Essential (primary) hypertension: Code(s): I10 - Essential (primary) hypertension Status: Acute Assessment and Plan: Continue with lisinopril and propanolol. The patient's blood pressure may be elevated because he is still complaining of discomfort. I did add p.r.n. hydralazine. May also consider increasing his lisinopril if need be (4) Emphysema of lung: Qualifiers: Emphysema type: unspecified Qualified Code(s): J43.9 - Emphysema, unspecified Code(s): J43.9 - Emphysema, unspecified Status: Acute Assessment and Plan: Continue with home inhalers including albuterol (5) Anxiety: Code(s): F41.9 - Anxiety disorder, unspecified Status: Acute Assessment and Plan: Continue with Celexa (6) Seizure: Code(s): R56.9 - Unspecified convulsions Status: Acute Assessment and Plan: Continue with Lamictal and gabapentin (7) Dyslipidemia: Code(s): E78.5 - Hyperlipidemia, unspecified Status: Acute Assessment and Plan: Continue with Zocor HPI Data of Consult Consult date: 10/21/22 Requesting Physician: Jareth Burgos MD Primary Care Provider: Morgan Bolton MD Consult Narrative Narrative: Justin Mittal is a 57 year old male has persistent left knee pain. Patient has not had any significant relief from injection and conservative measures such as therapy. He has chronic medial joint line pain. His symptoms have progressively gotten worse over the last year. The patient had a left total knee arthroplasty performed please see operative note. Operative note from 10/20/2022 read that the patient had a total knee arthroplasty per Dr. Burgos under general and regional block. It was noted that there was no immediate complications. Today the patient is complaining of having left knee pain and elevated blood pressure. His blood pressures been somewhere around 180/95. The patient stated they are typically controlled but he has been in too much pain. Patient stated that he takes clonazepam at home but has not been able to take it due to fear of interaction with his pain medication. The hospitalist group has been consulted on the date of service of 10/21/2022. Review of Systems Review of Systems: All systems reviewed & are unremarkable except as noted in HPI and below Constitutional: Constitutional: Reports as per HPI and Reports no additional constitutional complaints Eyes: Eyes: Reports as per HPI and Reports no additional eye complaints ENT: Reports system reviewed and no additional complaints, except as documented and Reports Normal hearing present Cardiovascular: Cardiovascular: Reports no additional cardiovascular complaints Respiratory: Respiratory: Reports no additional respiratory complaints and Reports no additional respiratory complaints Gastrointestinal: Gastrointestinal: Reports as per HPI and Reports no additional gastrointestinal complaints Musculoskeletal: Musculoskeletal: Reports no additional musculoskeletal complaints Integumentary/Breasts: Skin/Breast: Reports system reviewed and no additional complaints, except as docu and R
--- NOTE | 2022-10-21 16:36 | PM.PNORT ---
Progress Note: A&P Assessment and Plan (1) Status post total left knee replacement: Code(s): Z96.652 - Presence of left artificial knee joint Status: Acute (2) Essential (primary) hypertension: Code(s): I10 - Essential (primary) hypertension Status: Acute Plan Postop day 1: Left total knee arthroplasty. Patient tolerated procedure well. He does have some pain control issues. His blood pressure has been high today. Hospitalist consulted. Will continue to work on pain control and re-evaluate tomorrow. Subjective Subjective Date/Time Seen: 10/21/22 16:36 Interval history: Patient having pain control and blood pressure issues today. No other complaints. Review of Systems Constitutional: Constitutional: Denies difficulty sleeping, Denies fatigue, Denies fever(s), Denies headache(s) and Denies night sweats Eyes: Eyes: Denies loss of vision ENT: Denies dizziness, Denies headache(s) and Denies hearing loss Cardiovascular: Cardiovascular: Denies irregular heart rhythm and Denies dyspnea Respiratory: Respiratory: Denies cough and Denies dyspnea Gastrointestinal: Gastrointestinal: Denies change in bowel habits, Denies diarrhea, Denies nausea and Denies vomiting Genitourinary: Genitourinary: Denies dysuria, Denies nocturia and Denies urinary incontinence Musculoskeletal: Musculoskeletal: Denies abnormal gait Neurologic: Denies abnormal gait, Denies dizziness, Denies headache(s) and Denies loss of vision Psychiatric: Psychiatric: Denies anxiety and Denies depression Endocrine: Endocrine: Denies cold intolerance, Denies fatigue and Denies heat intolerance Exam Narrative: 57-year-old overweight male. Resting comfortably in bed. Alert and oriented x3. No acute distress. Uncomfortable. Wearing compression socks bilaterally. Dressing intact with no drainage. Moderate swelling. Slight ecchymosis. No erythema. No hematoma. No warmth. Range of motion limited due to pain. Calf nontender. Neurologic status intact. No varicosities. Distal pulses palpable. Light touch sensation intact. Good capillary refill. Objective Data Vital Signs Vital Signs: Vital Signs - 24 hr 10/20/22 20:11 10/20/22 20:55 10/20/22 20:00 Temperature 97.8 F 97.8 F Pulse Rate 81 78 78 Respiratory Rate 16 18 18 Blood Pressure 178/79 H 178/79 H Pulse Oximetry 99 99 Oxygen Delivery Room Air 03/14/23 20:00 10/20/22 23:53 10/21/22 05:35 Temperature 98.3 F 97.3 F L Pulse Rate 78 83 66 Respiratory Rate 18 16 16 Blood Pressure 181/81 H 160/79 H Pulse Oximetry 99 98 98 Oxygen Delivery Room Air 10/21/22 08:00 10/21/22 08:29 10/21/22 08:30 Temperature 97.6 F Pulse Rate 77 78 Respiratory Rate 20 Blood Pressure 199/98 H Pulse Oximetry 99 Oxygen Delivery Room Air 10/21/22 10:40 10/21/22 12:00 10/21/22 15:06 Temperature 98.1 F 98.0 F Pulse Rate 82 81 Respiratory Rate 12 14 Blood Pressure 196/88 H 180/95 H 168/84 H Pulse Oximetry 98 94 Oxygen Delivery Intake/Output Intake/Output: Intake & Output 10/18/22 10/19/22 10/20/22 10/21/22 23:59 23:59 23:59 23:59 Intake Total 972 684 Output Total 400 Balance 972 284 Meds/Results Medications: Active Medications Generic Name Dose Route Start Last Admin Trade Name Freq PRN Reason Stop Dose Admin Acetaminophen 1,000 mg 10/21/22 09:00 10/21/22 16:30 Acetaminophen 500 Mg Tablet PO 1,000 mg Q6H LOREN Administration Albuterol 2.5 mg 10/20/22 12:20 Albuterol Sulfate Neb 2.5 Mg/3 Ml Inh INHALATION Q4-6H PRN shortness of breath or wheezing Albuterol 1 puff 10/20/22 12:20 Albuterol Sulfate (*Sp) Aerosol 1 Puff INHALATION Q4H PRN Shortness Of Breath Or Wheezing Aspirin 81 mg 10/20/22 17:00 10/21/22 16:30 Aspirin 81 Mg Enteric Tablet PO 81 mg BID LOREN Administration Citalopram Hydrobromide 20 mg 10/20/22 12:00 10/21/22 12:35 Citalopram Hydrobromide 20 Mg Tablet
--- NOTE | 2022-10-21 17:10 | PHAR ---
HOME MEDICATION VERIFIED BY PHARMACY: LATUDA 80MG TABLET 1 TABLET
[2022-10-21] MEDS: DIVALPROEX SODIUM DR 250 MG TABEC 1000 MG PO (21:10)
[2022-10-21] MEDS: SIMVASTATIN 20 MG TABLET PO (21:12)
[2022-10-21] MEDS: traZODone HCL 50 MG TABLET 100 MG PO (21:12)
[2022-10-22] VITALS (15 sets, daily range): BP systolic 147–220; BP diastolic 74–110; PULSE 79–89; RESP 14–22; TEMP 36.2–37.1; O2SAT 96–100
[2022-10-22] MEDS: CYCLOBENZAPRINE HCL 10 MG TABLET PO (01:59)
[2022-10-22] MEDS: ACETAMINOPHEN 500 MG TABLET 1000 MG PO ×4 (02:00→20:48)
[2022-10-22] MEDS: hydrALAZINE HCL 20 MG/ML VIAL 10 MG IV PUSH (04:11)
[2022-10-22] MEDS: METOPROLOL TARTRATE INJ 5 MG/5 ML VIAL IV PUSH (05:33)
[2022-10-22 06:31] LABS: Basophils Absolute Auto 0.1 K/mm3 (0.0-0.1); Basophils Percent Auto 0.4 % (0.2-1.2); Eosinophils Absolute Auto 0.3 K/mm3 (0-0.3); Hematocrit 37.4 % (42.0-52.0); Immature Granulocyte Percent A 0.6 % (0-0.5); Lymphocytes Absolute Auto 4.07 K/mm3 (0.9-3.2); Lymphocytes Percent Auto 24.7 % (18.3-44.2); Mean Corpuscular HGB Conc 34.8 g/dl (32-36); Mean Corpuscular Volume 86.2 fl (80-100); Mean Platelet Volume 9.7 fl (7.4-10.4); Monocytes Absolute Auto 2.4 K/mm3 (0.1-0.6); Monocytes Percent Auto 14.3 % (2.6-8.5); Neutrophils Absolute Auto 9.6 K/mm3 (1.3-6.7); Platelet Count Result 198 k/mm3 (150-375); Red Blood Count 4.34 M/mm3 (4.6-6.20); Red Cell Distribution Width 13.6 % (11.5-14.5); White Blood Count 16.5 K/mm3 (4.5-10.0)
[2022-10-22 06:43] LABS: Alanine Aminotransferase 22 U/L (6-50); Alkaline Phosphatase 71 U/L (38-126); Anion Gap 8 mmol/L (8-16); Aspartate Amino Transferase 25 U/L (17-59); Bilirubin,Total 1.1 mg/dL (0.2-1.3); Blood Urea Nitrogen 12 mg/dL (9-20); Calcium 8.8 mg/dL (8.4-10.2); Carbon Dioxide 24 mmol/L (22-30); Chloride 102 mmol/L (98-107); Estimated CRCL calculation 118 ml/min; Estimated Glomerular Filt Rate > 60; Glucose 145 mg/dL (65-110); Magnesium 1.8 mg/dL (1.6-2.3); Potassium 3.9 mmol/L (3.4-5.0); Sodium 134 mmol/L (137-145)
[2022-10-22 06:45] LABS: Lactic Acid Reflex 1.2 mmol/L (0.7-2.0)
[2022-10-22] MEDS: oxyCODONE HCL (*CRX) 5 MG TAB IR 10 MG PO ×3 (07:45→17:30)
[2022-10-22] MEDS: PROPRANOLOL HCL 20 MG TABLET PO ×2 (07:45→20:49)
[2022-10-22] MEDS: lisinopriL 10 MG TABLET PO ×2 (07:45→09:16)
--- NOTE | 2022-10-22 08:13 | PC.NURSE ---
Sarah LANE notified of bp 200/80 and am oral po bp meds given
[2022-10-22] MEDS: UMECLIDINIUM/VILANTEROL 62.5-25 MCG ELLIPTA 1 PUFF INHALATION (08:39)
[2022-10-22] MEDS: FLUTICASONE PROP 110 MCG INHALER 12 GM (*SP) 1 PUFF INHALATION ×2 (08:39→20:46)
--- NOTE | 2022-10-22 08:57 | PC.NURSE ---
Sarah Marcus notified of bp 220/110
--- NOTE | 2022-10-22 08:59 | PCPTNOTE ---
The patient treatment was not able to be completed at this time due to high BP and increased knee pain. Will plan to continue treatment per plan of care.
[2022-10-22] MEDS: ASPIRIN 81 MG ENTERIC TABLET PO ×2 (09:16→17:10)
[2022-10-22] MEDS: predniSONE 5 MG TABLET PO (09:16)
[2022-10-22] MEDS: MELOXICAM 7.5 MG TABLET 15 MG PO (09:17)
[2022-10-22] MEDS: GABAPENTIN 300 MG CAPSULE PO ×3 (09:17→17:11)
[2022-10-22] MEDS: lamoTRIgine 50 MG TABLET 150 MG PO (09:17)
[2022-10-22] MEDS: PANTOPRAZOLE 40 MG TABLET PO ×2 (09:17→20:49)
[2022-10-22] MEDS: lisinopriL 20 MG TABLET PO (09:17)
[2022-10-22] MEDS: DOXEPIN HCL 10 MG CAPSULE PO ×3 (09:18→17:10)
[2022-10-22] MEDS: LORazepam (*CRX) 0.5 MG TABLET PO (09:23)
[2022-10-22] MEDS: CITALOPRAM HYDROBROMIDE 20 MG TABLET PO (12:05)
--- NOTE | 2022-10-22 16:28 | PM.IMPN ---
Progress Note: A&P Assessment and Plan (1) Status post total left knee replacement: Code(s): Z96.652 - Presence of left artificial knee joint Status: Acute Assessment and Plan: Postop care per orthopedic physician Pain Management as per orthopedic physician. The patient has Tylenol, cyclobenzaprine, gabapentin, Mobic, oxycodone, prednisone, and tramadol ordered. The patient stated that he is still having some discomfort to his left knee. DVT prophylaxis per orthopedic physician. The patient has OLINDA, SCDs, and aspirin. (2) Bipolar disorder: Code(s): F31.9 - Bipolar disorder, unspecified Status: Acute Assessment and Plan: Continue with Celexa, doxepin, Lamictal, and trazodone Latuda is non formulary and the patient may use from home. (3) Essential (primary) hypertension: Code(s): I10 - Essential (primary) hypertension Status: Acute Assessment and Plan: Continue with lisinopril and propanolol. The patient's blood pressure may be elevated because he is still complaining of discomfort. I did add p.r.n. hydralazine. Increase lisinopril to 20 mg q.d. (4) Emphysema of lung: Qualifiers: Emphysema type: unspecified Qualified Code(s): J43.9 - Emphysema, unspecified Code(s): J43.9 - Emphysema, unspecified Status: Acute Assessment and Plan: Continue with home inhalers including albuterol (5) Anxiety: Code(s): F41.9 - Anxiety disorder, unspecified Status: Acute Assessment and Plan: Continue with Celexa (6) Seizure: Code(s): R56.9 - Unspecified convulsions Status: Acute Assessment and Plan: Continue with Lamictal and gabapentin (7) Dyslipidemia: Code(s): E78.5 - Hyperlipidemia, unspecified Status: Acute Assessment and Plan: Continue with Zocor Subjective Date/time seen: 10/22/22 16:28 Interval history: patient doing well no new complaints. increase lisinopril to 20 mg a day. Review of Systems Review of Systems: All systems reviewed & are unremarkable except as noted in HPI and below Exam Narrative: GENERAL: Comfortable, no acute distress HENMT: moist mucous membranes EYES: EOM intact b/l NECK: no lymphadenopathy RESPIRATORY: clear to auscultation CARDIO: RRR GI: soft, nontender, bowel sounds present SKIN: no rashes EXTREMITIES: Right knee bandage dry and intact, no edema, redness or tenderness Objective Data Vital Signs Vital Signs: Vital Signs - 24 hr 10/21/22 20:05 10/21/22 20:00 10/21/22 21:11 Temperature Pulse Rate 82 82 Respiratory Rate 15 Blood Pressure Pulse Oximetry Oxygen Delivery Room Air 10/21/22 22:00 10/22/22 04:03 10/22/22 05:13 Temperature 98.4 F 97.8 F Pulse Rate 84 79 Respiratory Rate 18 18 Blood Pressure 179/85 H 181/84 H 198/100 H Pulse Oximetry 94 96 Oxygen Delivery 10/22/22 05:18 10/22/22 05:33 10/22/22 05:48 Temperature 98.7 F Pulse Rate 85 83 Respiratory Rate 14 Blood Pressure 182/89 H 175/89 H Pulse Oximetry 99 Oxygen Delivery 10/22/22 06:00 10/22/22 07:41 10/22/22 07:45 Temperature 98.7 F Pulse Rate 83 80 Respiratory Rate 18 Blood Pressure 175/89 H 200/80 H Pulse Oximetry 99 Oxygen Delivery 10/22/22 08:00 10/22/22 08:52 10/22/22 10:03 Temperature Pulse Rate Respiratory Rate Blood Pressure 220/110 H 198/100 H Pulse Oximetry Oxygen Delivery Room Air 10/22/22 10:47 10/22/22 13:31 10/22/22 14:00 Temperature 97.1 F L Pulse Rate 80 89 Respiratory Rate 18 Blood Pressure 190/90 H 160/74 H 165/81 H Pulse Oximetry 98 98 Oxygen Delivery Intake/Output Intake/Output: Intake & Output 10/19/22 10/20/22 10/21/22 10/22/22 23:59 23:59 23:59 23:59 Intake Total 972 734 322 Output Total 400 Balance 972 334 322 Meds/Results Medications: Active Medications Generic Name Dose Route Start Last Admin
[2022-10-22] MEDS: SENNA/DOCUSATE SODIUM TABLET 2 TAB PO (17:10)
--- NOTE | 2022-10-22 17:11 | PM.PNORT ---
Progress Note: A&P Assessment and Plan (1) Orthopedic aftercare for joint replacement: Code(s): Z47.1 - Aftercare following joint replacement surgery Status: Acute (2) Status post total left knee replacement: Code(s): Z96.652 - Presence of left artificial knee joint Status: Acute Plan Postoperative day 2 status post total knee arthroplasty. Complains of moderate pain. Mobilizing better. Blood pressure remains elevated. Afebrile. Wound healing nicely. Swelling mild. Good progress with physical therapy. Appreciate hospitalist assistance. Additional medications may help. Pain control should be better tomorrow which also may help. Possible discharge tomorrow if blood pressure reasonably stabilized. Subjective Subjective Date/Time Seen: 10/22/22 17:11 Objective Data Vital Signs Vital Signs: Vital Signs - 24 hr 10/21/22 20:05 10/21/22 20:00 10/21/22 21:11 Temperature Pulse Rate 82 82 Respiratory Rate 15 Blood Pressure Pulse Oximetry Oxygen Delivery Room Air 10/21/22 22:00 10/22/22 04:03 10/22/22 05:13 Temperature 36.9 C 36.6 C Pulse Rate 84 79 Respiratory Rate 18 18 Blood Pressure 179/85 H 181/84 H 198/100 H Pulse Oximetry 94 96 Oxygen Delivery 10/22/22 05:18 10/22/22 05:33 10/22/22 05:48 Temperature 37.1 C Pulse Rate 85 83 Respiratory Rate 14 Blood Pressure 182/89 H 175/89 H Pulse Oximetry 99 Oxygen Delivery 10/22/22 06:00 10/22/22 07:41 10/22/22 07:45 Temperature 37.1 C Pulse Rate 83 80 Respiratory Rate 18 Blood Pressure 175/89 H 200/80 H Pulse Oximetry 99 Oxygen Delivery 10/22/22 08:00 10/22/22 08:52 10/22/22 10:03 Temperature Pulse Rate Respiratory Rate Blood Pressure 220/110 H 198/100 H Pulse Oximetry Oxygen Delivery Room Air 10/22/22 10:47 10/22/22 13:31 10/22/22 14:00 Temperature 36.2 C L Pulse Rate 80 89 Respiratory Rate 18 Blood Pressure 190/90 H 160/74 H 165/81 H Pulse Oximetry 98 98 Oxygen Delivery Intake/Output Intake/Output: Intake & Output 10/19/22 10/20/22 10/21/22 03/16/23 23:59 23:59 23:59 23:59 Intake Total 972 733 322 Output Total 400 Balance 972 334 322 Meds/Results Medications: Active Medications Generic Name Dose Route Start Last Admin Trade Name Freq PRN Reason Stop Dose Admin Acetaminophen 1,000 mg 10/21/22 09:00 10/22/22 14:30 Acetaminophen 500 Mg Tablet PO 1,000 mg Q6H LOREN Administration Albuterol 2.5 mg 10/20/22 12:20 Albuterol Sulfate Neb 2.5 Mg/3 Ml Inh INHALATION Q4-6H PRN shortness of breath or wheezing Albuterol 1 puff 10/20/22 12:20 Albuterol Sulfate (*Sp) Aerosol 1 Puff INHALATION Q4H PRN Shortness Of Breath Or Wheezing Aspirin 81 mg 10/20/22 17:00 10/22/22 09:16 Aspirin 81 Mg Enteric Tablet PO 81 mg BID [facility] Administration Citalopram Hydrobromide 20 mg 10/20/22 12:00 10/22/22 12:05 Citalopram Hydrobromide 20 Mg Tablet PO 20 mg DAILY@1200 [facility] Administration Cyclobenzaprine HCl 10 mg 10/20/22 12:20 10/22/22 01:59 Cyclobenzaprine Hcl 10 Mg Tablet PO 10 mg Q8H PRN Administration Spasms Diphenhydramine HCl 25 mg 10/20/22 12:20 Diphenhydramine Hcl Inj 50 Mg/Ml Vial IV PUSH Q6H PRN Itching Divalproex Sodium 1,000 mg 10/20/22 21:00 10/21/22 21:[address] 250 Mg Tabec PO 1,000 mg HS [facility] Administration Doxepin HCl 10 mg 10/20/22 13:00 10/22/22 14:30 Doxepin Hcl 10 Mg Capsule PO 10 mg TID [facility] Administration Fluticasone Propionate 1 puff 10/20/22 20:00 10/22/22 08:39 Fluticasone Prop 110 Mcg Inhaler 12 Gm (*Sp) INHALATION 1 puff Q12HRT [facility] Administration Gabapentin 300 mg 10/20/22 13:00 10/22/22 14:30 Gabapentin 300 Mg Capsule PO 300 mg TID [facility] Administration Home Med 1 each 10/21/22 12:00 10/22/22 12:05 Lurasidone [Latuda] 80 Mg (Home Med) PO 11/20/22 11:5
[2022-10-22] MEDS: DIVALPROEX SODIUM DR 250 MG TABEC 1000 MG PO (20:48)
[2022-10-22] MEDS: SIMVASTATIN 20 MG TABLET PO (20:49)
[2022-10-22] MEDS: traZODone HCL 50 MG TABLET 100 MG PO (20:52)
[2022-10-23 06:00] VITALS: BP 141/73; PULSE 90; RESP 14; TEMP 36.6; O2SAT 98
[2022-10-23 07:03] LABS: Hematocrit 35.8 % (42.0-52.0); Hemoglobin 12.3 g/dL (14.0-18.0); Mean Corpuscular HGB Conc 34.4 g/dl (32-36); Mean Corpuscular Hemoglobin 29.6 pg (26-34); Mean Corpuscular Volume 86.1 fl (80-100); Mean Platelet Volume 9.6 fl (7.4-10.4); Platelet Count Result 199 k/mm3 (150-375); Red Blood Count 4.16 M/mm3 (4.6-6.20); Red Cell Distribution Width 13.5 % (11.5-14.5); White Blood Count 16.3 K/mm3 (4.5-10.0)
[2022-10-23 07:17] LABS: Alanine Aminotransferase 19 U/L (6-50); Albumin Level 4.1 g/dL (3.5-5.1); Alkaline Phosphatase 70 U/L (38-126); Anion Gap 7 mmol/L (8-16); Aspartate Amino Transferase 21 U/L (17-59); Bilirubin,Total 0.9 mg/dL (0.2-1.3); Blood Urea Nitrogen 14 mg/dL (9-20); Calcium 8.8 mg/dL (8.4-10.2); Carbon Dioxide 26 mmol/L (22-30); Chloride 100 mmol/L (98-107); Estimated CRCL calculation 104 ml/min; Estimated Glomerular Filt Rate > 60; Glucose 134 mg/dL (65-110); Potassium 3.8 mmol/L (3.4-5.0); Sodium 133 mmol/L (137-145)
[2022-10-23 07:20] VITALS: PULSE 90; RESP 16; O2SAT 98
[2022-10-23] MEDS: UMECLIDINIUM/VILANTEROL 62.5-25 MCG ELLIPTA 1 PUFF INHALATION (07:20)
[2022-10-23] MEDS: FLUTICASONE PROP 110 MCG INHALER 12 GM (*SP) 1 PUFF INHALATION (07:20)
--- NOTE | 2022-10-23 09:08 | PM.IMPN ---
Progress Note: A&P Assessment and Plan (1) Status post total left knee replacement: Code(s): Z96.652 - Presence of left artificial knee joint Status: Acute Assessment and Plan: Postop care per orthopedic physician Pain Management as per orthopedic physician. The patient has Tylenol, cyclobenzaprine, gabapentin, Mobic, oxycodone, prednisone, and tramadol ordered. The patient stated that he is still having some discomfort to his left knee. DVT prophylaxis per orthopedic physician. The patient has OLINDA, SCDs, and aspirin. (2) Bipolar disorder: Code(s): F31.9 - Bipolar disorder, unspecified Status: Acute Assessment and Plan: Continue with Celexa, doxepin, Lamictal, and trazodone Latuda is non formulary and the patient may use from home. (3) Essential (primary) hypertension: Code(s): I10 - Essential (primary) hypertension Status: Acute Assessment and Plan: Continue with lisinopril and propanolol. The patient's blood pressure may be elevated because he is still complaining of discomfort. I did add p.r.n. hydralazine. Increase lisinopril to 20 mg q.d. Recommend to continue 20 mg Lisinopril at discharge and follow up with PCP (4) Emphysema of lung: Qualifiers: Emphysema type: unspecified Qualified Code(s): J43.9 - Emphysema, unspecified Code(s): J43.9 - Emphysema, unspecified Status: Acute Assessment and Plan: Continue with home inhalers including albuterol (5) Anxiety: Code(s): F41.9 - Anxiety disorder, unspecified Status: Acute Assessment and Plan: Continue with Celexa (6) Seizure: Code(s): R56.9 - Unspecified convulsions Status: Acute Assessment and Plan: Continue with Lamictal and gabapentin (7) Dyslipidemia: Code(s): E78.5 - Hyperlipidemia, unspecified Status: Acute Assessment and Plan: Continue with Zocor Subjective Date/time seen: 10/23/22 09:08 Interval history: Patient doing well. No new complaints. Clears to go home from medication standpoint. Recommend Lisinopril 20mg daily. Track BP in a log and follow up with PCP in 1-2 weeks with BP log. Review of Systems Review of Systems: All systems reviewed & are unremarkable except as noted in HPI and below Exam Narrative: GENERAL: Comfortable, no acute distress HENMT: moist mucous membranes EYES: EOM intact b/l NECK: no lymphadenopathy RESPIRATORY: clear to auscultation CARDIO: RRR GI: soft, nontender, bowel sounds present SKIN: no rashes EXTREMITIES: Right knee bandage dry and intact, no edema, redness or tenderness Objective Data Vital Signs Vital Signs: Vital Signs - 24 hr 10/22/22 10:03 10/22/22 10:47 10/22/22 13:31 Temperature Pulse Rate 80 Respiratory Rate Blood Pressure 198/100 H 190/90 H 160/74 H Pulse Oximetry 98 Oxygen Delivery 10/22/22 14:00 10/22/22 22:00 10/22/22 20:00 Temperature 97.1 F L 97.7 F Pulse Rate 89 83 80 Respiratory Rate 18 22 H 19 Blood Pressure 165/81 H 147/75 H Pulse Oximetry 98 100 99 Oxygen Delivery Room Air 10/23/22 06:00 10/23/22 07:20 10/23/22 07:20 Temperature 97.8 F Pulse Rate 90 90 90 Respiratory Rate 14 16 16 Blood Pressure 141/73 H Pulse Oximetry 98 98 Oxygen Delivery Room Air Intake/Output Intake/Output: Intake & Output 10/20/22 10/21/22 10/22/22 10/23/22 23:59 23:59 23:59 23:59 Intake Total 972 734 544 Output Total 400 200 Balance 972 334 344 Meds/Results Medications: Active Medications Generic Name Dose Route Start Last Admin Trade Name Freq PRN Reason Stop Dose Admin Acetaminophen 1,000 mg 10/21/22 09:00 10/23/22 03:38 Acetaminophen 500 Mg Tablet PO Not Given Q6H LOREN Albuterol 2.5 mg 10/20/22 12:20 Albuterol Sulfate Neb 2.5 Mg/3 Ml Inh INHALATION Q4-6H PRN shortness of breath or wheezing Albuterol 1
[2022-10-23] MEDS: PROPRANOLOL HCL 20 MG TABLET PO (09:34)
[2022-10-23] MEDS: lamoTRIgine 50 MG TABLET 150 MG PO (09:34)
[2022-10-23] MEDS: lisinopriL 20 MG TABLET PO (09:34)
[2022-10-23] MEDS: predniSONE 5 MG TABLET PO (09:34)
[2022-10-23] MEDS: DOXEPIN HCL 10 MG CAPSULE PO ×2 (09:34→12:24)
[2022-10-23] MEDS: polyethylene glycoL 3350 17 GM POWD.PACK PO (09:34)
[2022-10-23] MEDS: PANTOPRAZOLE 40 MG TABLET PO (09:34)
[2022-10-23] MEDS: SENNA/DOCUSATE SODIUM TABLET 2 TAB PO (09:34)
[2022-10-23] MEDS: MELOXICAM 7.5 MG TABLET 15 MG PO (09:35)
[2022-10-23] MEDS: ASPIRIN 81 MG ENTERIC TABLET PO (09:35)
[2022-10-23] MEDS: GABAPENTIN 300 MG CAPSULE PO ×2 (09:35→12:24)
[2022-10-23] MEDS: oxyCODONE HCL (*CRX) 5 MG TAB IR 10 MG PO ×2 (09:40→14:29)
[2022-10-23] MEDS: CITALOPRAM HYDROBROMIDE 20 MG TABLET PO (12:24)
== END 2022-10-23 14:55 | disposition home or self-care (01) ==
LOC: ANHSURGERY 15:43 → ANH3MEDSUR 15:43
PROVIDERS: Internal Medicine Critical Care Medicine; Nurse Practitioner; Physician Assistant Surgical; Admitting Provider Orthopaedic Surgery; PCP Family Medicine; Visit Provider Orthopaedic Surgery
PROC: (CPT 27447; principal; 2022-10-20 08:30)
DX: M17.12 Unilateral primary osteoarthritis, left knee (principal); I10 Essential (primary) hypertension; F31.9 Bipolar disorder, unspecified; J43.9 Emphysema, unspecified; G89.18 Other acute postprocedural pain; F41.9 Anxiety disorder, unspecified; R56.9 Unspecified convulsions; E78.5 Hyperlipidemia, unspecified; F10.20 Alcohol dependence, uncomplicated; F12.90 Cannabis use, unspecified, uncomplicated; E66.3 Overweight; Z68.35 Body mass index [BMI] 35.0-35.9, adult; Z87.891 Personal history of nicotine dependence; Z79.51 Long term (current) use of inhaled steroids; Z79.891 Long term (current) use of opiate analgesic; Z79.82 Long term (current) use of aspirin; Z79.52 Long term (current) use of systemic steroids
CPT/HCPCS: 27447; 64447; 36415; 73560; 80048; 80053; 80164; 80307; 82948; 83036; 83605; 83735; 85025; 85027; 86850; 86900; 86901; 87081; 94640; 97110; 97116; 97161; 97165; 97530; 97535; A9270; C1713; C1776; G0378; J0131; J0171; J0360; J0690; J1100; J1885; J2250; J2270; J2405; J2704; J2795; J3010; J7030; J7120; J7512

== ENCOUNTER 2022-12-24 14:00 | Outpatient (RCR) | payer MEDICARE, SELFPAY ==
--- NOTE | 2022-11-03 13:20 | PTOPEVAL1 ---
Assessment and note entered by Mayra Mata DPT Evaluation Information Assessment Status Evaluation Subjective Information Pt is s/p left total knee replacement 10/20/22. Currently using a walker, was not prior to surgery . Has been able to get in/out of small spaces like his bathroom at home without the walker, still will balance with his hand on the wall. Highest pain since surgery 8/10 and lowest 5/10. No home health PT. Has 2 steps into the house, has been able to navigate. Not able to do his normal cooking, cleaning, or yard work due to his knee pain. Is not working currently, was at [employer] but then took a leave due to his knee. Can dress independently but needs assistance to shower and is using a shower chair. Returns to [place] November 11. Reported Pain Level Pain Score 5: Self Report Assessment PT Clinical Summary The patient is presenting to skilled therapy s/p L TKA on 10/20/22. He presents with decreased range of motion and strength which are contributing to his pain and difficulty with doing his normal activities at home and current walker use. He will benefit from therapy to address these impairments and safely return to his prior level of function. Plan of Care Interventions Electrical Stimulation,Hot Pack/Cold Pack,Manual Therapy,Neuro Re-education,Patient/Caregiver Education,Therapeutic Activities,Therapeutic Exercise,Self-Care/Home Management PT Services Indicated Yes Treatment Frequency and 2 times a week for 4 weeks Duration These treatments will address the objective and functional deficits as defined above. The patient will be advanced safely and appropriately in order for the patient to progress towards his/her prior level of function. Additional exercises will be introduced and as well as a comprehensive home exercise program upon discharge, if needed, ?to ensure carryover of functional gains achieved in the clinic. This treatment plan has been reviewed and agreement upon by the patient.
--- NOTE | 2022-11-05 15:09 | PCPTNOTE ---
Patient called & cancelled scheduled appointment this date due to needing a later time.
--- NOTE | 2022-11-12 13:12 | PCPTNOTE ---
Called Pt twice, was able to get ahold of him the second time. Pt had wrong time down for his appointment. Cancelled Pt's appointment due to miscommunication.
--- NOTE | 2022-11-17 13:50 | PCPTNOTE ---
Patient called & cancelled scheduled appointment this date due to sick grandkids.
--- NOTE | 2022-11-26 13:27 | PCPTNOTE ---
Patient called and left a message to rescheduled his appointment this date.
--- NOTE | 2022-12-02 08:59 | PTOPPROG ---
Assessment and note entered by Robi Herrera, PT Evaluation Information Assessment Status Progress Diagnosis L knee replacement Onset 10/20/22 Subjective Information Patient reports doing well, not using assistive device, some pain about 4/10 at worst, feels strong, but does not have the range of motion he wants. Assessment PT Clinical Summary Justin is a 57 year old male coming into the clinic with a diagnosis of a L TKA. He was evaluated on 11/03/22 and has attended 7 sessions with 3 cancelations. He is off his assistive devices and met his goal strength. Still needing to improving range of motion currently 0-5-112 degrees and reduce pain. Physical therapy will continue to work on increasing knee range of motion which should help with pain control. Plan of Care Interventions Electrical Stimulation,Gait Training,Hot Pack/Cold Pack,Manual Therapy,Neuro Re-education,Patient/ Caregiver Education,Therapeutic Activities, Therapeutic Exercise,Ultrasound Other Interventions taping, cupping, IASTM PT Services Indicated Yes Treatment Frequency and 2x/wk for 4 weeks Duration These treatments will address the objective and functional deficits as defined above. The patient will be advanced safely and appropriately in order for the patient to progress towards his/her prior level of function. Additional exercises will be introduced and as well as a comprehensive home exercise program upon discharge, if needed, ?to ensure carryover of functional gains achieved in the clinic. This treatment plan has been reviewed and agreement upon by the patient.
--- NOTE | 2022-12-21 11:36 | PCPTNOTE ---
Patient did not show up for scheduled appointment this date. Called and had to leave a message.
--- NOTE | 2022-12-29 11:10 | PTOPDC ---
Assessment and note entered by Robi Herrera, PT Evaluation Information Assessment Status Discharge - Pt Not Presen Diagnosis L knee replacement Onset 10/20/22 Subjective Information Patient calls into the clinic stating he is doing good and will be moving out of the area to [place] so will not be rescheduling his re- evaluation appointment Assessment PT Clinical Summary Justin was coming into the clinic with a diagnosis of a L TKA. He was evaluated on11/03/22 and attended 10 sessions with 6 no shows or cancelations. Notes showed him having met his strength goals and ambulating without assistive devices. range of motion at last re-evalation was 0-5-112. Discharged from skilled physical therapy. Plan of Care PT Services Indicated No
== END 2022-12-29 13:46 | disposition home or self-care (01) ==
LOC: ANHPT 14:00
PROVIDERS: PCP Family Medicine; Visit Provider Physician Assistant Surgical
DX: Z47.1 Aftercare following joint replacement surgery (principal); Z96.652 Presence of left artificial knee joint
CPT/HCPCS: 97110; 97112; 97116; 97140; 97161; 97530; 99199